=== PATIENT | female | born 1950 | race Caucasian/White ===

== ENCOUNTER 2016-06-26 10:00 | Inpatient (IN) | payer OTHER, MEDICARE ==
[2016-06-26] VITALS (40 sets, daily range): BP systolic 91–149; BP diastolic 46–103; PULSE 118–177; RESP 19–43; TEMP 97.8–98.6; O2SAT 80–98
[~2016-06-26] VITALS: Ht 157.5 cm; Wt 113.7 kg
[~2016-06-26 10:00] MED LIST: ASPI325T10 OR; ATRO17AE INH; DIGO0.25 PO; DILT31TA PO; GLUCTAB PO; LASI80TA PO; METO50TA PO; POTA-243 PO; PRED20 PO; TAB-TAB PO
[2016-06-26] MEDS ORDERED: DILTIAZEM INJ 125 MG in SODIUM CHLORIDE 0.9% INJ 100 ML IV SCH (10:15)
[2016-06-26] MEDS ORDERED: DILTIAZEM HCL 25 MG/5 ML VIAL IVP ONE (10:15)
[2016-06-26] MEDS ORDERED: SODIUM CHLORIDE 0.9% FLUSH 5 ML FLUSH IVF PRN (10:15)
[2016-06-26] MEDS ORDERED: FUROSEMIDE 40 MG/4 ML VIAL IVP ONE (10:15)
[2016-06-26] MEDS ORDERED: LEVOFLOXACIN 750 MG PREMIX INJ 150 ML IV ONE (10:15)
[2016-06-26] MEDS ORDERED: methylPREDNISolone SOD SUCC 125 MG/2 ML VIAL IVP ONE (10:15)
[2016-06-26] MEDS: RESP: ALBUTEROL 2.5 MG/IPRATROPIUM 0.5 MG NEB (SCH) INH (10:31)
[2016-06-26 10:34] LABS: AUTOMATED NEUTROPHIL # 21.2 TH/MM3 (1.8-7.7); BASOPHIL # 0.3 TH/MM3 (0-0.2); BASOPHIL % 1.2 % (0.0-2.0); EOSINOPHIL # 0.1 TH/MM3 (0-0.4); EOSINOPHIL % 0.2 % (0.0-4.0); HEMATOCRIT 39.9 % (35.0-46.0); LYMPHOCYTE # 1.8 TH/MM3 (1.0-4.8); MEAN CELL VOLUME 82.9 FL (80.0-100.0); MEAN CORPUSCULAR HEMOGLOBIN 26.9 PG (27.0-34.0); MEAN CORPUSCULAR HGB CONC 32.4 % (32.0-36.0); MONO % 6.7 % (0.0-8.0); NEUT % 84.9 % (16.0-70.0); PLATELET COUNT 294 TH/MM3 (150-450); RED BLOOD COUNT 4.81 MIL/MM3 (4.00-5.30); RED CELL DISTRIBUTION WIDTH 14.8 % (11.6-17.2); WHITE BLOOD COUNT 25.1 TH/MM3 (4.0-11.0)
[2016-06-26 10:38] LABS: CHLORIDE 103 MEQ/L (98-107); POTASSIUM 4.2 MEQ/L (3.5-5.1); SODIUM (NA) 143 MEQ/L (136-145)
[2016-06-26 10:41] LABS: ANION GAP 11 MEQ/L (5-15); BICARBONATE 29.1 MEQ/L (21.0-32.0); BLOOD UREA NITROGEN 37 MG/DL (7-18); MAGNESIUM 2.5 MG/DL (1.5-2.5)
[2016-06-26 10:42] LABS: HEMO FLAGS AUTO DIFF
[2016-06-26 10:44] LABS: ALT (GPT) 32 U/L (10-53); AST (GOT) 13 U/L (15-37)
[2016-06-26 10:45] LABS: GLOMERULAR FILTRATION RATE 38 ML/MIN (>89)
[2016-06-26] MEDS ORDERED: NICOTINE 21 MG/24 HR PATCH TD ONE (10:45)
[2016-06-26 10:46] LABS: TOTAL BILIRUBIN ADULT 0.5 MG/DL (0.2-1.0)
[2016-06-26 10:47] LABS: ALKALINE PHOSPHATASE 119 U/L (45-117)
--- NOTE | 2016-06-26 10:50 | PD ---
HPI Chief Complaint: shortness of breath Time Seen by Provider: 10:05 Travel History International Travel<30 days: No Contact w/Intl Traveler<30days: No History of Present Illness HPI This is a 66-year-old woman who presents to the emergency department in marked distress complaining of shortness of breath and chest pain. States she's been feeling sick for about 2 weeks now with worsening cough, productive of green phlegm, chills, trouble breathing, and chest tightness. She has a history of COPD, CHF, A. fib. She still smokes. She saw her primary physician a couple days ago he gave her prescriptions for a steroid taper, antibiotics, and a cough medicine. She is having worsening symptoms so she came to the emergency department. History Past Medical History Narrative Medical COPD CHF A. fib Tobacco use Social History Alcohol Use: Yes (1-2 TIMES PER WEEK) Tobacco Use: Yes (1 PPD) Allergies-Medications (Allergen,Severity, Reaction): Coded Allergies: Augmentin (Verified Allergy, Severe, Anaphylaxis, 06/26/16) Keflex (Verified Allergy, Severe, Anaphylaxis, 06/26/16) Sulfa (Verified Allergy, Severe, Anaphylaxis, 06/26/16) Reported Meds & Prescriptions Reported Meds & Active Scripts Active Reported Azithromycin 250 Mg Tab 250 Mg PO DAILY Breo Ellipta Inh (Fluticasone/Vilanterol) 100-25 Mcg/Act Inh 1 Puff INH DAILY Use daily at the same time. Benzonatate 200 Mg Cap 200 Mg PO BID PRN Aspirin 325 Mg Tab 325 Mg PO DAILY Diltiazem (Diltiazem HCl) 30 Mg Tab 30 Mg PO TID Lasix (Furosemide) 80 Mg Tab 80 Mg PO BID [areds ] 2 Tab PO DAILY Medrol Dosepak (Methylprednisolone) 4 Mg Dspk 4 Mg PO DIRECTED Per Pharmacist direction Metoprolol Tartrate 25 Mg Tab 25 Mg PO BID Potassium Chloride ER (Potassium Chloride) 20 Meq Tab 20 Meq PO BID Lisinopril 5 Mg Tab 5 Mg PO DAILY Review of Systems ROS Limitations: Clinical Condition Physical Exam Narrative GENERAL: Ill-appearing 66 year-old woman, morbidly obese, sitting forward, tachypnea, able to speak 2-3 words at a time. SKIN: Warm and dry. HEAD: Atraumatic. Normocephalic. EYES: Pupils equal and round. No scleral icterus. No injection or drainage. ENT: No nasal bleeding or discharge. Mucous membranes pink and moist. NECK: Trachea midline. No JVD. CARDIOVASCULAR: Heart rate initially rapid, 170s to 180s, irregular. No obvious murmurs. RESPIRATORY: Marked respiratory distress. Coarse wheezing throughout the posterior lung holl[place]. GASTROINTESTINAL: Abdomen is obese, soft, no CVA tenderness. MUSCULOSKELETAL: No obvious deformities. No obvious edema. NEUROLOGICAL: Awake and alert. No obvious cranial nerve deficits. Motor grossly within normal limits. Normal speech. PSYCHIATRIC: Anxious appearing. Data Data Last Documented VS Vital Signs Date Time Temp Pulse Resp B/P Pulse Ox O2 Delivery O2 Flow Rate FiO2 06/26/16 11:26 98.6 06/26/16 11:07 94 BiPAP 50 06/26/16 10:57 177 30 06/26/16 10:53 149/89 Orders Complete Blood Count With Diff (06/26/16 10:13) Comprehensive Metabolic Panel (06/26/16 10:13) B-Type Natriuretic Peptide (06/26/16 10:13) Magnesium (Mg) (06/26/16 10:13) Troponin I (06/26/16 10:13) Arterial Blood Gas (Abg) (06/26/16 10:13) Urinalysis - C+S If Indicated (06/26/16 10:13) Influenzae A/B Antigen (06/26/16 10:13) Blood Culture (06/26/16 10:13) Iv Access Insert/Monitor (06/26/16 10:13) Ecg Monitoring (06/26/16 10:13) Oximetry (06/26/16 10:13) Oxygen Administration (06/26/16 10:13) Chest, Single Ap (06/26/16 10:13) Sodium Chloride 0.9% Flush (Ns Flush) (06/26/16 10:15) Furosemide Inj (Lasix Inj) (06/26/16 10:15) Methylprednisolone So Succ Inj (Solumedr (06/26/16 10:15) Albuterol-Ipratropium Neb (Duoneb Neb) (06/26/16 10:15) Resp Bipap / Cpap Non Invas Vt (06/26/16 10:13) Vital Signs (Adult) Q15MX4,Q4H (06/26/16 10:13) ^ Financial Aid Manager / Telemetry (06/26/16 10:13) Cardiac Rhythm VERONICA.Q8H (06/26/16 10:13) ^ Notify Dr: Other (06/26/16 10:13) Diltiazem Inj (Cardizem Inj) (06/26/16 10:15) Diltiazem Inj (Cardizem Inj) (06/26/16 10:15) Levofloxacin 750 Mg Premix Inj (Levaquin (06/26/16 10:15) Lactic Acid (06/26/16 10:17) Nicotine 21 Mg Patch.24 Hr (Habitrol 21 (06/26/16 10:45) Admit Order (Ed Use Only) (06/26/16 ) Labs Laboratory Tests Test 06/26/16 06/26/16 06/26/16 10:00 10:05 11:05 White Blood Count 25.1 TH/MM3 Red Blood Count 4.81 MIL/MM3 Hemoglobin 12.9 GM/DL Hematocrit 39.9 % Mean Corpuscular Volume 82.9 FL Mean Corpuscular Hemoglobin 26.9 PG Mean Corpuscular Hemoglobin 32.4 % Concent Red Cell Distribution Width 14.8 % Platelet Count 294 TH/MM3 Mean Platelet Volume 9.3 FL Neutrophils (%) (Auto) 84.9 % Lymphocytes (%) (Auto) 7.0 % Monocytes (%) (Auto) 6.7 % Eosinophils (%) (Auto) 0.2 % Basophils (%) (Auto) 1.2 % Neutrophils # (Auto) 21.2 TH/MM3 Lymphocytes # (Auto) 1.8 TH/MM3 Monocytes # (Auto) 1.7 TH/MM3 Eosinophils # (Auto) 0.1 TH/MM3 Basophils # (Auto) 0.3 TH/MM3 CBC Comment AUTO DIFF Differential Total Cells 100 Counted Neutrophils % (Manual) 78 % Band Neutrophils % 6 % Lymphocytes % 9 % Monocytes % 3 % Neutrophils # (Manual) 22.1 TH/MM3 Metamyelocytes 4 % Differential Comment FINAL DIFF MANUAL Platelet Estimate NORMAL Platelet Morphology Comment NORMAL Sodium Level 143 MEQ/L Potassium Level 4.2 MEQ/L Chloride Level 103 MEQ/L Carbon Dioxide Level 29.1 MEQ/L Anion Gap 11 MEQ/L Blood Urea Nitrogen 37 MG/DL Creatinine 1.40 MG/DL Estimat Glomerular Filtration 38 ML/MIN Rate Random Glucose 179 MG/DL Calcium Level 9.2 MG/DL Magnesium Level 2.5 MG/DL Total Bilirubin 0.5 MG/DL Aspartate Amino Transf 13 U/L (AST/SGOT) Alanine Aminotransferase 32 U/L (ALT/SGPT) Alkaline Phosphatase 119 U/L Troponin I 0.02 NG/ML Total Protein 7.6 GM/DL Albumin 3.2 GM/DL Lactic Acid Level 2.1 mmol/L Blood Gas Puncture Site RT RADIAL Blood Gas Patient Temperature 98.6 Blood Gas HCO3 26 mmol/L Blood Gas Base Excess 1.8 mmol/L Blood Gas Oxygen Saturation 92 % Arterial Blood pH 7.43 Arterial Blood Partial 39 mmHG Pressure CO2 Arterial Blood Partial 84 mmHG Pressure O2 Arterial Blood Oxygen Content 16.1 Vol % Arterial Blood 3.2 % Carboxyhemoglobin Arterial Blood Methemoglobin 1.1 % Blood Gas Hemoglobin 12.3 G/DL Oxygen Delivery Device BIPAP Blood Gas Ventilator Setting IPAP 12/EPAP 5 Blood Gas Inspired Oxygen 50 % [facility] Medical Decision Making Medical Screen Exam Complete: Yes Emergency Medical Condition: Yes Interpretation(s) My review of EKG: A. fib with RVR, rate of 180, normal axis, normal intervals, nonspecific inferolateral T-wave inversions. LABS: CBC remarkable for white count 25,000, no left shift. CMP revealed mildly elevated BUN and creatinine. Lactate 2.1 Troponin negative BNP is pending ABGs unremarkable. Chest x-ray: Alveolar consolidation the left upper lung holl[place] with asymmetric pulmonary edema versus pneumonia. Differential Diagnosis A. fib RVR, pneumonia, sepsis, CHF, COPD exacerbation, other Narrative Course Medical decision making INITIAL: 66 year-old woman of multiple likely concomitant medical problems, including A. fib RVR with a heart rate in the 180s, marked respiratory distress likely CHF. Pneumonia or both. COPD exacerbation as well. Start with BiPAP for respiratory distress. We'll continue bronchodilators steroids. We'll treat empirically with antibiotics for pneumonia. Tilt drip for A. fib RVR. Patient will be admitted to the ICU. FINAL: A. fib RVR with hypoxia, concern for pneumonia and COPD. Looks well. Probably more pneumonia than CHF given her clinical history. A. fib RVR likely secondary. We'll treat for COPD exacerbation, pneumonia, A. fib RVR. Heart rate improving on diltiazem. Spoke with the electrician third, will admit the patient here. Diagnosis Primary Impression: Pneumonia Qualified Code: J18.1 - Pneumonia of left upper lobe due to infectious organism Additional Impressions: Respiratory failure Qualified Code: J96.01 - Acute respiratory failure with hypoxia Atrial fibrillation with RVR Admitting Information Admitting Physician Requests: Admit Derek Pritchard MD Jun 26, 2016 10:50
[2016-06-26 11:03] LABS: BANDS 6 % (0-6); METAMYELOCYTES 4 % (0-1); NEUTROPHIL # MANUAL DIFF 22.1 TH/MM3 (1.8-7.7); POLYS (SEG NEUTROPHILS) 78 % (16-70); WBC DIFF SAMPLE 100
[2016-06-26 11:04] LABS: PLATELET ESTIMATE SMEAR NORMAL (NORMAL); PLATELET MORPHOLOGY NORMAL (NORMAL); SCAN/DIFF FINAL DIFF MANUAL
[2016-06-26] MEDS ORDERED: MEDR4PAK PO (11:15)
[2016-06-26] MEDS ORDERED: BENZ1CAP34 PO (11:15)
[2016-06-26] MEDS ORDERED: FLUT1INH INH (11:15)
[2016-06-26] MEDS ORDERED: DILT30TA PO (11:15)
[2016-06-26] MEDS ORDERED: AZIT250T3 PO (11:15)
[2016-06-26] MEDS ORDERED: FURO1TAB61 PO (11:15)
[2016-06-26] MEDS ORDERED: ASPI325T PO (11:15)
[2016-06-26] MEDS ORDERED: areds PO (11:15)
[2016-06-26] MEDS ORDERED: LISI-519 PO (11:15)
[2016-06-26] MEDS ORDERED: POTA-163 PO (11:15)
[2016-06-26] MEDS ORDERED: METO25TA3 PO (11:15)
[2016-06-26 11:18] LABS: BLOOD GAS BASE EXCESS 1.8 mmol/L (-2-2); BLOOD GAS CARBOXYHEMOGLOBIN 3.2 % (0-4); BLOOD GAS HCO3 26 mmol/L (22-26); BLOOD GAS METHEMOGLOBIN 1.1 % (0-2); BLOOD GAS O2 HGB SATURATION 92 % (90-100); BLOOD GAS OXYGEN CONTENT 16.1 Vol % (12.0-20.0); BLOOD GAS PCO2 39 mmHG (38-42); BLOOD GAS PO2 84 mmHG (61-120); BLOOD GAS TOTAL HGB 12.3 G/DL (12.0-16.0); CRITICAL VALUE NO; DRAW SITE RT RADIAL; FIO2 50 %; NUMBER OF ARTERIAL PUNCTURES 1; OXYGEN DEVICE BIPAP; STAT YES; TEMP CORR TO 98.6; ULNAR PULSE PRESENT; VENT SETTINGS IPAP 12/EPAP 5
--- NOTE | 2016-06-26 11:33 | RADHPO ---
EXAM DATE/TIME: 06/26/2016 11:03 [facility] COMPARISON: CHEST SINGLE AP, June 17, 2013, 17:48. INDICATIONS: Short of breath. MEDICAL HISTORY: Chronic obstructive pulmonary disease. Congestive heart failure. AFib. Smoker SURGICAL HISTORY: None. ENCOUNTER: Initial ACUITY: 2 days PAIN SCORE: 0/10 LOCATION: Bilateral chest FINDINGS: There is new alveolar consolidation within the left upper lung field consistent with asymmetric pulmo nary edema versus pneumonia. Clinical correlation is recommended. The heart is enlarged. Pulmonary vascular congestion is stable. CONCLUSION: 1. New alveolar consolidation within the left upper lung field consistent with asymmetric pulmonary edema versus pneumonia. Clinical correlation is recommended. 2. Cardiomegaly. Amanuel Negron MD on June 26, 2016 at 11:23 Board Certified Radiologist. This report was verified electronically.
[2016-06-26] MEDS ORDERED: CHLORHEXIDINE GLUCONATE 2 % 1 PACK (2 CLOTHS) TOP PRN (13:00)
[2016-06-26] MEDS ORDERED: POTASSIUM CHLOR 40 MEQ PREMIX 100 ML IV PRN ×2 (13:00)
[2016-06-26] MEDS ORDERED: POTASSIUM CHLOR 20 MEQ PREMIX 100 ML IV PRN ×2 (13:00)
[2016-06-26] MEDS ORDERED: POTASSIUM PHOSPHATE MONOBASIC 500 MG TAB PO PRN (13:00)
[2016-06-26] MEDS ORDERED: ONDANSETRON HCL 4 MG/2 ML VIAL IV PRN (13:00)
[2016-06-26] MEDS ORDERED: MAGNESIUM SULFATE INJ 4 GM in SODIUM CHLORIDE 0.9% INJ 92 ML IV PRN (13:00)
[2016-06-26] MEDS ORDERED: Vancomycin Consult Pharmacy 1 EA XX SCH (13:00)
[2016-06-26] MEDS ORDERED: POTASSIUM CL 40 MEQ/30 ML LIQ UDC PO/TUBE PRN ×2 (13:00)
[2016-06-26] MEDS ORDERED: ACETAMINOPHEN 325 MG TAB PO PRN (13:00)
[2016-06-26] MEDS ORDERED: POTASSIUM PHOSPHATE MONOBASIC 500 MG TAB PO/TUBE PRN (13:00)
[2016-06-26] MEDS ORDERED: GLUCAGON 1 MG/ML VIAL OTHER PRN (13:00)
[2016-06-26] MEDS ORDERED: DEXTROSE 50% IN WATER 50 ML VIAL(D50) IV PUSH PRN (13:00)
[2016-06-26] MEDS ORDERED: MAGNESIUM SULFATE INJ 2 GM in SODIUM CHLORIDE 0.9% INJ 96 ML IV PRN (13:00)
[2016-06-26] MEDS ORDERED: POTASSIUM PHOSPHATE INJ 30 MMOL in SODIUM CHLOR 0.9% 250 ML INJ 250 ML IV PRN (13:00)
[2016-06-26] MEDS ORDERED: SODIUM PHOSPHATE INJ 30 MMOL in SODIUM CHLOR 0.9% 250 ML INJ 240 ML IV PRN (13:00)
[2016-06-26] MEDS ORDERED: MAGNESIUM OXIDE 400 MG TAB PO PRN (13:00)
[2016-06-26] MEDS ORDERED: RESP: ALBUTEROL 2.5 MG/IPRATROPIUM 0.5 MG NEB (PRN) INH (13:00)
[2016-06-26] MEDS ORDERED: BISACODYL 10 MG SUPP RECTAL PRN (13:00)
[2016-06-26] MEDS ORDERED: MISCELLANEOUS NURSING INFORMATION XX SCH (13:00)
[2016-06-26] MEDS ORDERED: METOPROLOL TARTRATE 5 MG/5 ML VIAL ONE (14:48)
[2016-06-26] MEDS ORDERED: METOPROLOL TARTRATE 5 MG/5 ML VIAL IV PUSH PRN (15:00)
[2016-06-26] MEDS: HEPARIN SODIUM - SQ 10,000 UNITS/ML VIAL SQ SCH (15:02)
[2016-06-26] MEDS: VANCOMYCIN 1,000 MG/NS 250 ML IV SCH ×4 (15:02→16:00)
[2016-06-26] MEDS ORDERED: FUROSEMIDE 40 MG/4 ML VIAL IV PUSH ONE (15:15)
--- NOTE | 2016-06-26 15:15 | HHI.HP ---
HPI Service Critical Care Medicine Primary Care Physician Non-Staff Admission Diagnosis pneumonia, A. fib RVR Diagnosis: Travel History International Travel<30 Days: No Contact w/Intl Traveler <30 Da: No Traveled to Known Affected Are: No History of Present Illness This is a 66-year-old woman super morbidly obese female that presented to the ED with dyspnea and angina. Per ED report, the patient been feeling ill for several weeks.Her symptomatology worsened which she described as worsening cough , productive of green phlegm, chills, trouble breathing, and chest tightness. She has a history of COPD, CHF, A. fib. . The patient is an active smoker. She still smokes. In the ED, imaging and laboratory studies were obtained. The patient was noted to be in A. fib RVR,HR 180's a Cardizem infusion was initiated , imaging studies revealed pulmonary edema versus pneumonia process, Lasix was given. The patient was placed on BiPAP, O2 sat ranging 92-95%. Critical care medicine is consulted for treatment and management. History (Limited) History Past Medical History Narrative Medical COPD CHF A. fib Tobacco use Social History Alcohol Use: Yes (1-2 TIMES PER WEEK) Tobacco Use: Yes (1 PPD) Allergies-Medications Allergies-Medications (Allergen,Severity, Reaction): Coded Allergies: Augmentin (Verified Allergy, Severe, Anaphylaxis, 06/26/16) Keflex (Verified Allergy, Severe, Anaphylaxis, 06/26/16) Sulfa (Verified Allergy, Severe, Anaphylaxis, 06/26/16) Reported Meds & Prescriptions Reported Meds & Active Scripts Active Reported Azithromycin 250 Mg Tab 250 Mg PO DAILY Breo Ellipta Inh (Fluticasone/Vilanterol) 100-25 Mcg/Act Inh 1 Puff INH DAILY Use daily at the same time. Benzonatate 200 Mg Cap 200 Mg PO BID PRN Aspirin 325 Mg Tab 325 Mg PO DAILY Diltiazem (Diltiazem HCl) 30 Mg Tab 30 Mg PO TID Lasix (Furosemide) 80 Mg Tab 80 Mg PO BID [areds ] 2 Tab PO DAILY Medrol Dosepak (Methylprednisolone) 4 Mg Dspk 4 Mg PO DIRECTED Per Pharmacist direction Metoprolol Tartrate 25 Mg Tab 25 Mg PO BID Potassium Chloride ER (Potassium Chloride) 20 Meq Tab 20 Meq PO BID Lisinopril 5 Mg Tab 5 Mg PO DAILY ROS Review of Systems ROS Limitations: Clinical Condition Physical Exam Vital Signs Vital Signs Date Time Temp Pulse Resp B/P Pulse Ox O2 Delivery O2 Flow Rate FiO2 06/26/16 14:15 96 50 06/26/16 12:27 123 26 115/76 98 BiPAP 50 06/26/16 12:13 148 06/26/16 11:26 98.6 06/26/16 11:07 94 BiPAP 50 06/26/16 11:07 96 BiPAP 50 06/26/16 10:57 177 30 94 BiPAP 06/26/16 10:53 177 30 149/89 80 06/26/16 10:20 95 50 Physical Exam GENERAL: Well-developed well-nourished morbidly obese female, semirecumbent in bed on BiPAP, in no apparent distress SKIN: Warm and dry. HEAD: Atraumatic. Normocephalic. EYES: PERRLA 3mm brisk. No scleral icterus. No injection or drainage. ENT: No nasal bleeding or discharge. Mucous membranes pink and moist. NECK: Trachea midline. Unable to assess JVD secondary to morbid obesity. CARDIOVASCULAR: Irregularly irregular rate/rhythm. RESPIRATORY: No accessory muscle use. Coarse breath sounds bilaterally to auscultation, throughout lung field. Breath sounds equal bilaterally. BiPAP 12/ 5 .50 GASTROINTESTINAL: Abdomen soft, obese non-tender, nondistended. No guarding. MUSCULOSKELETAL: Extremities without clubbing, cyanosis, or edema. No obvious deformities. NEUROLOGICAL: Awake and alert. RASS 0. No gross focal/sensory deficits. Follows commands in all 4 extremities. Laboratory Laboratory Tests Test 06/26/16 06/26/16 06/26/16 10:00 10:05 11:05 White Blood Count 25.1 Red Blood Count 4.81 Hemoglobin 12.9 Hematocrit 39.9 Mean Corpuscular Volume 82.9 Mean Corpuscular Hemoglobin 26.9 Mean Corpuscular Hemoglobin 32.4 Concent Red Cell Distribution Width 14.8 Platelet Count 294 Mean Platelet Volume 9.3 Neutrophils (%) (Auto) 84.9 Lymphocytes (%) (Auto) 7.0 Monocytes (%) (Auto) 6.7 Eosinophils (%) (Auto) 0.2 Basophils (%) (Auto) 1.2 Neutrophils # (Auto) 21.2 Lymphocytes # (Auto) 1.8 Monocytes # (Auto) 1.7 Eosinophils # (Auto) 0.1 Basophils # (Auto) 0.3 CBC Comment AUTO DIFF Differential Total Cells 100 Counted Neutrophils % (Manual) 78 Band Neutrophils % 6 Lymphocytes % 9 Monocytes % 3 Neutrophils # (Manual) 22.1 Metamyelocytes 4 Differential Comment FINAL DIFF MANUAL Platelet Estimate NORMAL Platelet Morphology Comment NORMAL Sodium Level 143 Potassium Level 4.2 Chloride Level 103 Carbon Dioxide Level 29.1 Anion Gap 11 Blood Urea Nitrogen 37 Creatinine 1.40 Estimat Glomerular Filtration 38 Rate Random Glucose 179 Calcium Level 9.2 Phosphorus Level 3.9 Magnesium Level 2.5 Total Bilirubin 0.5 Aspartate Amino Transf 13 (AST/SGOT) Alanine Aminotransferase 32 (ALT/SGPT) Alkaline Phosphatase 119 Troponin I 0.02 B-Type Natriuretic Peptide 440 Total Protein 7.6 Albumin 3.2 Lactic Acid Level 2.1 Blood Gas Puncture Site RT RADIAL Blood Gas Patient Temperature 98.6 Blood Gas HCO3 26 Blood Gas Base Excess 1.8 Blood Gas Oxygen Saturation 92 Arterial Blood pH 7.43 Arterial Blood Partial 39 Pressure CO2 Arterial Blood Partial 84 Pressure O2 Arterial Blood Oxygen Content 16.1 Arterial Blood 3.2 Carboxyhemoglobin Arterial Blood Methemoglobin 1.1 Blood Gas Hemoglobin 12.3 Oxygen Delivery Device BIPAP Blood Gas Ventilator Setting IPAP 12/EPAP 5 Blood Gas Inspired Oxygen 50 Date/Time Procedure Status Source Growth 06/26/16 10:18 Influenza Types A,B Antigen (TONY) - Final Complete Nasal Washing NEGATIVE FOR FLU A AND B ANTIGEN.... 06/26/16 10:10 Aerobic Blood Culture Received Blood Peripheral Pending 06/26/16 10:10 Anaerobic Blood Culture Received Blood Peripheral Pending Result Diagram: 06/26/16 1000 06/26/16 1000 Imaging Last Impressions Chest X-Ray 06/26/16 1013 Signed Impressions: Service Date/Time: June 11:03 - CONCLUSION: 1. New alveolar consolidation within the left upper lung field consistent with asymmetric pulmonary edema versus pneumonia. Clinical correlation is recommended. 2. Cardiomegaly. Amanuel Negron MD Septic Shock Reassessment Heart: Irregular Lungs: Course, Diminished Skin: Warm Peripheral Pulses: Bounding Right Radial Bounding Left Radial Bounding Right Dorsalis Pedis Bounding Left Dorsalis Pedis Capillary Refill: Brisk Assessment and Plan Assessment and Plan This is a 66-year-old super morbidly obese female with a recent history of pneumonia that presented to the ED COPD exacerbation , probable CHF,A. fib and RVR and hypoxic respiratory failure. The patient's echo from several years ago revealed an ejection fraction of 35-40%. Heart rate upon presentation to the ED was 180s. The patient currently is on a Cardizem drip for rate control, no effects from initial dose of Lasix ED the patient continues to have coarse breath sounds throughout lung [place] with O2 sat ranging 90-94%. The patient may require intubation and vasopressor support secondary to low ejection fraction and congestive heart failure. This patient is critically ill and currently prognosis is guarded. Plan by systems: Neurologic: -No acute issues -GCS 15 Respiratory: COPD exacerbation Multilobular CAP pneumonia Pulmonary edema Nicotine abuse -Maintain O2 sat greater than 92%. Patient currently on BiPAP 05/19.50. O2 sat 92-95% -Lasix 40 mg IV 1 dose given in the ED, questionable effect. Lasix 40 mg IV push now. -Patient's home med Lasix 80 mg twice a day continue -CXR 06/26-left upper lung hollings[place] consistent with asymmetric pulmonary edema versus pneumonia, cardiomegaly -Continue Breo (home med) daily -Nicotine patch high-dose daily -Increased frequency of DuoNeb to every 4 hours scheduled, every 2 hour when necessary -Repeat chest x-ray in a.m. -Patient counseled on cessation of smoking -Pulmicort consult appreciate recommendations -Initiate Solu-Medrol 40 every 12 hours Cardiovascular: Acute systolic Congestive heart failure Cardiomegaly -EK ED -A. fib RVR, HR 180's -Currently on Cardizem infusion per ED, will discontinue secondary to last known EF in 2013 -Give amiodarone bolus, begin an infusion in the setting of ejection fraction 06/20/13 per ECHO EF 3540 percent -Metoprolol 2.5 mg IV every 6hr for heart rate greater than 100 -Continue home meds metoprolol 25 mg twice a day -Continue lisinopril 5 mg/day -Continue ASA 325 mg daily -Cardiology consult-appreciate recommendations -Obtain echo-06/20/13 EF 3540 % -Obtain BNP, serial troponins Renal: Renal insufficiency -Creatinine 1.4-consider ARB, consider ACEI -- Strict I/Os -monitor and document urinary output FEN/GI: -Continue home med Lasix 80 mg twice a day -Continue potassium by mouth 20 meq daily Heme/ID: Sepsis Leukocytosis Community-acquired pneumonia Bandemia -Monitor CBC. WBC 25, bands 6 -Begin empiric antibiotics- Levofloxacin, and Vancomycin Endocrine: -No acute issues -Glucose monitoring per ICU protocol every 6 hours with low-dose coverage -- SSI Prophylaxis: GI Prophylaxis Protonix IV DVT Prophylaxis -- SCDs Heparin subcutaneous twice a day Lines: Peripheral IV's. Central line if indicated Dispo: This patient remains critically ill with one or more organ systems which are or may become a threat to life. I have spent in excess of 60 minutes discontinuously in the care and management of this patient. This time is exclusive of procedures, and includes, but is not limited to, evaluation of the patient, review of the medical record, discussions with family, consultants, nursing staff, or respiratory therapy, and documentation in the medical record. Code Status Full code Discussed Condition With PERINATAL COORDINATOR at bedside Flores Hahn MD Jun 26, 2016 15:15
[2016-06-26] MEDS ORDERED: AMIODARONE INJ 150 MG in DEXTROSE 5% IN WATER 100ML INJ 97 ML IV ONE ×4 (16:00)
[2016-06-26] MEDS ORDERED: RESP: ALBUTEROL 2.5 MG/IPRATROPIUM 0.5 MG NEB (SCH) INH ×2 (16:00→20:00)
[2016-06-26] MEDS: AMIODARONE INJ 450 MG in DEXTROSE 5% IN WATE(EXCEL) INJ 241 ML IV SCH ×2 (17:02)
[2016-06-26] MEDS: INSULIN ASPART SUPPLEMENTAL SCALE SQ SCH ×2 (17:12→20:25)
[2016-06-26] MEDS: FUROSEMIDE 40 MG TAB PO SCH (17:59)
[2016-06-26] MEDS ORDERED: VANCOMYCIN INJ 700 MG in SODIUM CHLOR 0.9% 250 ML INJ 250 ML IV ONE (18:00)
[2016-06-26] MEDS ORDERED: DIGOXIN 0.5 MG/2 ML VIAL IV PUSH ONE ×2 (18:15→21:15)
[2016-06-26] MEDS: POTASSIUM CHLORIDE 20 MEQ CONTROLLED RELEASE TAB PO SCH (20:22)
[2016-06-26] MEDS: DOCUSATE SODIUM 100 MG CAP PO SCH (20:22)
[2016-06-26] MEDS: METOPROLOL TARTRATE 25 MG TAB PO SCH (20:22)
[2016-06-26] MEDS: methylPREDNISolone SOD SUCC 40 MG/1 ML VIAL IV PUSH SCH (20:23)
[2016-06-26] MEDS: SODIUM CHLORIDE 0.9% FLUSH 5 ML FLUSH IV FLUSH SCH (20:25)
[2016-06-26 21:20] LABS: BLOOD, URINE NEG (NEG); GLUCOSE,URINE NEG (NEG); KETONE, URINE NEG (NEG); NITRITE,URINE NEG (NEG); PH, URINE 5.5 (5.0-8.5)
[2016-06-26 21:24] LABS: URINE COLOR YELLOW (YELLW/STRAW)
[2016-06-26 21:25] LABS: COMMENT (UR) CULT NOT INDICATED; CULTURE IF INDICATED CULT NOT INDICATED; SQUAMOUS EPITHELIAL CELL URINE 0-5 /hpf (0-5); WBC, URINE 0-2 /hpf (0-5)
[2016-06-26 22:08] LABS: POTASSIUM 4.2 MEQ/L (3.5-5.1)
[2016-06-26 22:14] LABS: BICARBONATE 25.7 MEQ/L (21.0-32.0); MAGNESIUM 2.6 MG/DL (1.5-2.5)
[2016-06-26] MEDS: LORazepam 2 MG/ML VIAL IV PRN (23:39)
[2016-06-27] VITALS (47 sets, daily range): BP systolic 93–155; BP diastolic 54–106; PULSE 78–148; RESP 22–48; TEMP 97.5–98.4; O2SAT 81–98
[2016-06-27] MEDS: AMIODARONE INJ 450 MG in DEXTROSE 5% IN WATE(EXCEL) INJ 241 ML IV SCH ×2 (00:05)
[2016-06-27] MEDS: HEPARIN SODIUM - SQ 10,000 UNITS/ML VIAL SQ SCH (00:42)
[2016-06-27] MEDS: RESP: IPRATROPIUM 0.5 MG/2.5 ML NEB NEB PRN ×4 (01:34→20:40)
[2016-06-27] MEDS: DIGOXIN 0.5 MG/2 ML VIAL IV PUSH SCH ×2 (03:06→05:20)
[2016-06-27] MEDS: CHLORHEXIDINE GLUCONATE 2 % 1 PACK (2 CLOTHS) TOP SCH (03:16)
[2016-06-27 04:41] LABS: AUTOMATED NEUTROPHIL # 18.7 TH/MM3 (1.8-7.7); BASOPHIL % 0.2 % (0.0-2.0); HEMATOCRIT 39.8 % (35.0-46.0); LYMPH % 5.2 % (9.0-44.0); LYMPHOCYTE # 1.1 TH/MM3 (1.0-4.8); MEAN CELL VOLUME 81.5 FL (80.0-100.0); MEAN CORPUSCULAR HEMOGLOBIN 26.4 PG (27.0-34.0); MEAN CORPUSCULAR HGB CONC 32.4 % (32.0-36.0); MONO % 2.4 % (0.0-8.0); NEUT % 92.2 % (16.0-70.0); PLATELET COUNT 293 TH/MM3 (150-450); RED BLOOD COUNT 4.88 MIL/MM3 (4.00-5.30); RED CELL DISTRIBUTION WIDTH 14.3 % (11.6-17.2); WHITE BLOOD COUNT 20.3 TH/MM3 (4.0-11.0)
[2016-06-27 04:47] LABS: HEMO FLAGS DIFF FINAL
[2016-06-27 04:48] LABS: POTASSIUM 4.6 MEQ/L (3.5-5.1)
[2016-06-27 04:53] LABS: BICARBONATE 28.6 MEQ/L (21.0-32.0); MAGNESIUM 2.8 MG/DL (1.5-2.5)
[2016-06-27] MEDS: INSULIN ASPART SUPPLEMENTAL SCALE SQ SCH (05:19)
--- NOTE | 2016-06-27 06:31 | RADHPO ---
EXAM DATE/TIME: 06/27/2016 06:11 [facility] COMPARISON: CHEST SINGLE AP, June 26, 2016, 11:03. INDICATIONS : Shortness of breath. MEDICAL HISTORY : Chronic obstructive pulmonary disease. Congestive heart failure. A-Fib, Smoker SURGICAL HISTORY : None. ENCOUNTER: Subsequent ACUITY: 2 days PAIN SCORE: 0/10 LOCATION: Bilateral chest FINDINGS: The cardiac silhouette is enlarged in transverse diameter. There are findings of congestive heart ian lure with interstitial and alveolar opacity bilaterally. The findings are similar to the prior exam. No pleural effusions are identified. CONCLUSION: 1. Cardiomegaly and findings of congestive heart failure. There has been no significant change when c ompared to the prior exam. Davon Cuba MD on June 27, 2016 at 6:29 Board Certified Radiologist. This report was verified electronically.
[2016-06-27] MEDS ORDERED: DILTIAZEM HCL 25 MG/5 ML VIAL ONE (06:39)
[2016-06-27] MEDS ORDERED: DILTIAZEM HCL 25 MG/5 ML VIAL IV PUSH ONE (06:45)
[2016-06-27] MEDS ORDERED: DILTIAZEM 125 MG/NS 100 ML IV SCH ×2 (07:00)
[2016-06-27] MEDS ORDERED: DILTIAZEM HCL 25 MG/5 ML VIAL IV ONE (07:05)
--- NOTE | 2016-06-27 07:12 | MB ---
cc: AMIRAH WEAVER DATE OF CONSULTATION 06/26/2016 REASON FOR CONSULTATION Respiratory failure and COPD. PRESENT ILLNESS This is a 66-hour-old extremely overweight white female who has had a history of chronic dyspnea and a history for CHF. She was admitted with cough, yellow sputum, weakness and palpitations. The patient was in atrial fibrillation with a rapid ventricular response. She was placed on oxygen via Ventimask, but failed to improve and was placed on a BiPap mask and his sats have improved to 96%. She denied any fevers, chills, night sweats, but had some leg swelling. PAST HISTORY The patient's past history has included: 1. History of atrial fibrillation. 2. CHF 3. Chronic bronchitis PAST SURGICAL HISTORY She denies significant surgery. ALLERGIES AUGMENTIN AND SULFA FAMILY HISTORY Noncontributory MED LIST 1. Cardizem 30 mg t.i.d. 2. Metoprolol 25 mg b.i.d. 3. Potassium 20 mEq b.i.d. 4. Lasix 80 mg b.i.d. 5. Lisinopril 5 mg a day 6. Breo 100 mcg one puff daily FAMILY HISTORY Noncontributory SYSTEM REVIEW The patient is overweight. She has a cough, postnasal drip, apnea, history of reflux and abdominal pains. Denies any urinary symptoms, flank pains. No leg or calf muscle pains. She does have some joint pains of her extremities. PHYSICAL EXAMINATION This is an extremely overweight elderly white female who is in no acute distress. VITAL SIGNS: Blood pressure 120/70, pulse 124, respirations 20, temperature 98.5. HEENT: Head normocephalic. Pupils are reactive. Tongue moist. Nasal mucosa injected. Throat clear. NECK: Supple. No lymphadenopathy. No bruits or thyroid enlargement. CHEST: Increased AP diameter with expiratory wheezes throughout both lung holl[place]. Prolonged expirations. HEART: The heart sounds are irregular, S1-S2 with no murmur. No S3 gallop. ABDOMEN: Soft and protuberant. No masses or organomegaly, tenderness. Bowel sounds active. EXTREMITIES: No edema. Mild varicosities. Reflexes 1+ with no gross motor deficits. NEUROLOGIC: Cranial nerves grossly intact. RECTAL: Exam is deferred. SKIN: No lesions. IMPRESSION 1. Hypercapnic respiratory failure 2. Bilateral pneumonia 3. Pulmonary edema 4. CHF and atrial fibrillation 5. Obstructive sleep apnea 6. Hypertension PLAN The patient has been placed on O2 via Ventimask at 50%. She will be placed back on BiPap at night 12/5 and 40% and sister nasal cannula in the morning. Continue with diuretics including Lasix 80 mg b.i.d. Blood gases to be done. She will be placed on DuoNeb solution q.i.d. and Breo 100/25 mcg one puff daily, Solu-Medrol 40 mg every six hours and the nebulizer treatments will be suspended if her heart rate is over 120. We will get a sputum culture, get a PFT when she is clinically stable. Thank you Dr. Hahn for this consultation. MD RAMIRO Bernard/YVETTE /11:10 PM /7:02 AM
[2016-06-27] MEDS: ENOXAPARIN SODIUM 80 MG/0.8 ML SYRINGE SQ SCH ×2 (07:19→17:45)
--- NOTE | 2016-06-27 07:38 | MB ---
cc: BAO HUSSEIN M.D. DATE OF CONSULTATION: 06/27/2016 REASON FOR CONSULTATION The patient is a pleasant 66-year-old white female I am seeing for congestive heart failure and atrial fibrillation. I have reviewed old records. HISTORY OF PRESENT ILLNESS The patient has a history of chronic and atrial fibrillation but is not anticoagulated. Ejection fraction in 2013 was 35-40% but she has not followed up with cardiology. The patient smokes one pack per day and has COPD. She has moderate stable dyspnea on exertion which has worsened over the last 1-2 months. Within the last week or two she has had increasing cough, sputum production and some fever. She noted no pedal edema, chest pain, syncope or palpitations. She has no history of CVA, claudication, DVT or pulmonary emboli. PAST MEDICAL HISTORY 1. Hypertension. 2. Possible hyperlipidemia. 3. Atrial fibrillation--chronic. 4. Morbid obesity. 5. Chronic back pain. SOCIAL HISTORY The patient is and smokes a pack per day and occasionally drinks. FAMILY HISTORY Noncontributory. MEDICATIONS Medication list reviewed. ALLERGIES 1. AUGMENTIN. 2. CEPHALOSPORINS. 3. KEFLEX. 4. SULFA. REVIEW OF SYSTEMS The review of systems is remarkable for the above along with her chronic back pain. PHYSICAL EXAMINATION GENERAL: On exam she is morbidly obese and in mild to moderate respiratory distress. VITAL SIGNS: She is mildly tachycardic. HEENT: There are no xanthelasma and oropharyngeal mucosa normal. CHEST: Without deformity and with moderate solis-expiratory wheezes and decreased breath sounds. CARDIAC: JVD normal. PMI is not felt. S1, S2. No murmurs or gallops. Irregular rhythm. ABDOMEN: Obese but benign. EXTREMITIES: No cyanosis, clubbing or edema. PULSES: Carotids without bruits. Radials 1+. Femorals not felt. Pedals 1+. NEUROLOGIC: She is not ambulated. EKG EKG showed atrial fibrillation with rapid response. IMAGING Chest x-ray 06/26/2016 was read as a left upper lobe pneumonia but on 06/27/2016 read as congestive heart failure. LABORATORY CBC with elevated white count but normal hemoglobin, hematocrit and platelet count. Urinalysis negative. Potassium today 4.6, creatinine 1.5 which is elevated from her baseline, magnesium normal. Liver functions normal. BNP mildly elevated at 574. Troponins negative. PROBLEMS 1. Respiratory distress--the patient may have pneumonia along with exacerbation of COPD and obesity. She also may have some mild congestive heart failure but the BNP elevation is somewhat nonspecific 2. Chronic atrial fibrillation. 3. History of some type of cardiomyopathy--not followed. 4. Hypertension. 5. Possible hyperlipidemia 6. Tobacco abuse disorder. 7. Noncompliance. RECOMMENDATIONS 1. Given her chronic atrial fibrillation I see no indication for amiodarone, particularly with her lung disease. I will switch this to intravenous Cardizem for rate control. She has received digoxin but I would not use this as a baseline. 2. Continue low-dose beta blockers from home. 3. Discontinue aspirin and start her on Lovenox for full anticoagulation. 4. Echocardiogram and TSH and lipid panel are pending. 5. Tobacco abstinence with weight loss and low salt/cholesterol diet. I have emphasized the importance of risk factor modification. All questions were answered. Bao Hussein MD ASG/BT /6:58 AM /7:26 AM
[2016-06-27] MEDS: METOPROLOL TARTRATE 25 MG TAB PO SCH ×2 (08:59→19:28)
[2016-06-27] MEDS: POTASSIUM CHLORIDE 20 MEQ CONTROLLED RELEASE TAB PO SCH ×2 (08:59→19:29)
[2016-06-27] MEDS: FUROSEMIDE 40 MG TAB PO SCH (08:59)
[2016-06-27] MEDS: DOCUSATE SODIUM 100 MG CAP PO SCH ×2 (08:59→19:27)
[2016-06-27] MEDS: LISINOPRIL 5 MG TAB PO SCH (08:59)
[2016-06-27] MEDS: methylPREDNISolone SOD SUCC 40 MG/1 ML VIAL IV PUSH SCH ×2 (09:00→19:27)
[2016-06-27] MEDS: FLUTICASONE 100 MCG/VILANTEROL 25 MCG INHALER INH SCH (09:00)
[2016-06-27] MEDS ORDERED: PANTOPRAZOLE SODIUM 40 MG VIAL IV SCH (09:00)
[2016-06-27] MEDS ORDERED: ASPIRIN 325 MG TAB PO SCH (09:00)
[2016-06-27 09:02] LABS: APTT (PATIENT) 28.7 SEC (24.3-30.1); PROTHROMBIN TIME - PATIENT 11.4 SEC (9.8-11.6)
[2016-06-27] MEDS: SODIUM CHLORIDE 0.9% FLUSH 5 ML FLUSH IV FLUSH SCH ×2 (09:04→19:26)
[2016-06-27] MEDS ORDERED: LEVOFLOXACIN 750 MG PREMIX INJ 150 ML IV SCH (10:00)
--- NOTE | 2016-06-27 10:30 | RADHPO ---
EXAM DATE/TIME: 06/27/2016 09:52 [facility] COMPARISON: CHEST SINGLE AP, June 27, 2016, 6:11. INDICATIONS : Short of breath. Infiltrate. RADIATION DOSE: 30.96 CTDIvol (mGy) MEDICAL HISTORY : Chronic obstructive pulmonary disease. Congestive heart failure. SURGICAL HISTORY : Tubal ligation. ENCOUNTER: Initial ACUITY: 4 - 6 days PAIN SCALE: 2/10 LOCATION: Bilateral chest TECHNIQUE: Volumetric scanning of the chest was performed. Using automated exposure control and adjustment of t he mA and/or kV according to patient size, radiation dose was kept as low as reasonably achievable to obtain optimal diagnostic quality images. FINDINGS: LUNGS: There are multiple areas of confluent airspace consolidation and areas of groundglass opacities seen throughout the lungs bilaterally, left greater than right. Given this distribution this is most consi stent with an infectious process. PLEURAE: There is no pleural thickening or pleural effusion. MEDIASTINUM: The heart size is greatly enlarged. No evidence of pericardial effusion.. AXILLAE: Within normal limits. No lymphadenopathy. MUSCULOSKELETAL: Within normal limits for patient age. MISCELLANEOUS: The visualized upper abdominal organs demonstrate no acute abnormality. CONCLUSION: Multifocal airspace consolidation and areas of patchy groundglass opacity most consistent with an inf ectious process. Significant cardiomegaly. Given the distribution of the air space opacities this is not felt to represent congestive heart failure.. Gail Mcleod MD on June 27, 2016 at 10:26 Board Certified Radiologist. This report was verified electronically.
[2016-06-27] MEDS ORDERED: DEXTROSE 50% IN WATER 50 ML VIAL(D50) IV PUSH PRN (10:45)
--- NOTE | 2016-06-27 10:52 | HHI.CCPN ---
Subjective Remarks/Hospital Course Hospital Course: This is a 66-year-old woman super morbidly obese female that presented to the ED with dyspnea and angina. Per ED report, the patient been feeling ill for several weeks.Her symptomatology worsened which she described as worsening cough , productive of green phlegm, chills, trouble breathing, and chest tightness. She has a history of COPD, CHF, A. fib. . The patient is an active smoker. She still smokes. In the ED, imaging and laboratory studies were obtained. The patient was noted to be in A. fib RVR,HR 180's a Cardizem infusion was initiated , imaging studies revealed pulmonary edema versus pneumonia process, Lasix was given. The patient was placed on BiPAP, O2 sat ranging 92-95%. Critical care medicine is consulted for treatment and management. Subjective: 06/27: cardiology and pulm evaluated patient. per their recommendations, amiodarone discontinued and dilt drip instituted. echo evaluation of probable chf exacerbation still pending. Objective Vital Signs Date Time Temp Pulse Resp B/P Pulse Ox O2 Delivery O2 Flow Rate FiO2 06/27/16 09:00 106 30 138/106 96 06/27/16 08:07 Non-Rebreather 15.00 100 06/27/16 08:00 97.9 Intake and Output 06/26/16 06/26/16 06/27/16 08:00 16:00 00:00 Intake Total 150 ml 833 ml Output Total 1550 ml Balance 150 ml -717 ml Result Diagram: 06/27/16 0429 06/27/16 0429 Other Results Microbiology Date/Time Procedure Status Source Growth 06/26/16 10:18 Influenza Types A,B Antigen (TONY) - Final Complete Nasal Washing NEGATIVE FOR FLU A AND B ANTIGEN.... Laboratory Tests Test 06/26/16 11:05 Blood Gas Puncture Site RT RADIAL Blood Gas Patient Temperature 98.6 Blood Gas HCO3 26 mmol/L (22-26) Blood Gas Base Excess 1.8 mmol/L (-2-2) Blood Gas Oxygen Saturation 92 % (90-100) Arterial Blood pH 7.43 (7.380-7.420) Arterial Blood Partial 39 mmHG (38-42) Pressure CO2 Arterial Blood Partial 84 mmHG Pressure O2 (61-120) Arterial Blood Oxygen Content 16.1 Vol % (12.0-20.0) Arterial Blood 3.2 % (0-4) Carboxyhemoglobin Arterial Blood Methemoglobin 1.1 % (0-2) Blood Gas Hemoglobin 12.3 G/DL (12.0-16.0) Oxygen Delivery Device BIPAP Blood Gas Ventilator Setting IPAP 12/EPAP 5 Blood Gas Inspired Oxygen 50 % Imaging Last Impressions Chest X-Ray 06/26/16 1013 Signed Impressions: Service Date/Time: June 11:03 - CONCLUSION: 1. New alveolar consolidation within the left upper lung field consistent with asymmetric pulmonary edema versus pneumonia. Clinical correlation is recommended. 2. Cardiomegaly. Amanuel Negron MD Objective Remarks GENERAL: morbidly obese female, semirecumbent in bed on high flow face mask HEAD: Atraumatic. Normocephalic. EYES: PERRLA. No scleral icterus. No injection or drainage. ENT: No nasal bleeding or discharge. Mucous membranes pink and moist. NECK: Trachea midline. Unable to assess JVD secondary to morbid obesity. CARDIOVASCULAR: Irregularly irregular rate/rhythm. RESPIRATORY: No accessory muscle use. Coarse breath sounds bilaterally to auscultation, throughout lung field. Breath sounds equal bilaterally. BiPAP 12/ 5 .50 GASTROINTESTINAL: Abdomen soft, obese non-tender, nondistended. No guarding. MUSCULOSKELETAL: Extremities without clubbing, cyanosis, or edema. No obvious deformities. NEUROLOGICAL: Awake and alert. RASS 0. No gross focal/sensory deficits. Follows commands in all 4 extremities. A/P Assessment and Plan This is a 66-year-old super morbidly obese female with a recent history of pneumonia that presented to the ED COPD exacerbation , probable CHF,A. fib and RVR and hypoxic respiratory failure. The patient's echo from several years ago revealed an ejection fraction of 35-40%. Heart rate upon presentation to the ED was 180s. The patient currently is on a Cardizem drip for rate control, no effects from initial dose of Lasix ED the patient continues to have coarse breath sounds throughout lung [place] with O2 sat ranging 90-94%. will continue to aggressively diurese the patient. Plan by systems: Neurologic: -No acute issues -GCS 15 Respiratory: COPD exacerbation Multilobular CAP pneumonia Pulmonary edema Nicotine abuse -Maintain O2 sat greater than 92%. ok to have periods off BiPAP. -Patient's home med Lasix 80 mg twice a day, will swap to Lasix 80 iv q8h. -CXR 06/26-left upper lung [place] consistent with asymmetric pulmonary edema versus pneumonia, cardiomegaly -Continue Breo (home med) daily -Nicotine patch high-dose daily - DuoNeb to every 4 hours scheduled, every 2 hour when necessary -Patient counseled on cessation of smoking -Pulmicort consult appreciate recommendations -Initiate Solu-Medrol 40 every 12 hours -Pulm consult, following along. recommended CT chest, will f/u results. Cardiovascular: Acute systolic Congestive heart failure Cardiomegaly Atrial Fibrillation with rapid ventricular response -EKG1/ ED -A. fib RVR, HR 180's -Currently on Cardizem infusion per cardiology -will add diltiazem 60 po q6hr scheduled. wean drip as tolerated. -Metoprolol 2.5 mg IV every 6hr for heart rate greater than 100 -Continue home meds metoprolol 25 mg twice a day -Continue lisinopril 5 mg/day -Continue ASA 325 mg daily -Cardiology consult- Dr. Hussein following -awaiting echo findings-06/20/13 EF 3540 % -trop negative. BNP 500s. Renal: Renal insufficiency -Creatinine 1.4-consider ARB, consider ACEI -- Strict I/Os -monitor and document urinary output FEN/GI: Morbid Obesity -hold home lasix 80 po bid, start lasix 80mg iv q8hr. -mg sulfate 2gm iv x 1 now. -Continue potassium by mouth 20 meq daily - will obtain nursing bedside swallow assessment. if she passes, will advance to clear liquid, then to carb controlled, heart healthy diet as tolerated. - 500mL fluid restriction. - goal 2L negative by AM. Heme/ID: Sepsis Leukocytosis Community-acquired pneumonia Bandemia -Monitor CBC. WBC 25, bands 6 -continue empiric antibiotics- Levofloxacin, and Vancomycin -obtain sputum culture -06/26 blood cultures NGTD. Endocrine: Hyperglycemia -No acute issues -increase SSI to high scale, q4h. poorly controlled blood glucose. -- SSI Prophylaxis: GI Prophylaxis Protonix IV DVT Prophylaxis -- SCDs Therapeutic lovenox 80 q12h, new-onset Afib with CHADS-VaSC > 2 (CHF) Lines: Peripheral IV's. Central line if indicated Dispo: remain in ICU. Sanket Castro MD Jun 27, 2016 10:52 patient, review of the medical record, discussions with family, consultants, nursing staff, or respiratory therapy, and documentation in the medical record. Sanket Castro MD Jun 27, 2016 10:52
[2016-06-27] MEDS: NICOTINE 21 MG/24 HR PATCH TD SCH (10:53)
[2016-06-27] MEDS: INSULIN NovoLIN REGULAR SUPPLEMENTAL SCALE SQ SCH ×3 (11:09→19:35)
[2016-06-27] MEDS: DILTIAZEM HCL 60 MG TAB PO SCH ×2 (12:08→17:45)
[2016-06-27] MEDS: VANCOMYCIN INJ 1,700 MG in SODIUM CHLORID 0.9% 500 ML INJ 500 ML IV SCH (14:10)
[2016-06-27] MEDS ORDERED: FUROSEMIDE 100 MG/10 ML VIAL IV PUSH ONE (17:30)
[2016-06-27] MEDS: MAGNESIUM SULFATE 1 GM PREMIX 100 ML IV SCH ×2 (17:44→19:25)
--- NOTE | 2016-06-27 19:46 | HHI.PR ---
Subjective Remarks Used Bipap last night. Now on a Aerosol mask . Feels better. Good output Objective Vital Signs Date Time Temp Pulse Resp B/P Pulse Ox O2 Delivery O2 Flow Rate FiO2 06/27/16 18:00 86 25 117/89 93 06/27/16 18:00 86 06/27/16 17:00 90 28 119/60 95 06/27/16 16:15 93 Aerosol Mask 70 06/27/16 16:00 98.1 82 48 117/64 94 06/27/16 16:00 82 06/27/16 15:00 80 06/27/16 15:00 80 34 127/87 97 06/27/16 14:00 84 06/27/16 14:00 84 39 120/87 95 06/27/16 13:00 84 22 127/54 98 06/27/16 12:00 88 06/27/16 12:00 97.6 88 29 132/60 95 06/27/16 11:00 98 37 136/60 90 06/27/16 10:00 106 06/27/16 10:00 92 37 137/88 93 06/27/16 09:00 106 30 138/106 96 06/27/16 08:07 92 Non-Rebreather 15.00 100 06/27/16 08:06 85 Aerosol Mask 60 06/27/16 08:05 93 Non-Rebreather 100 06/27/16 08:05 82 Nasal Cannula 6.00 06/27/16 08:00 100 06/27/16 08:00 97.9 106 32 118/104 93 06/27/16 07:47 88 Nasal Cannula 6.00 06/27/16 07:40 92 Nasal Cannula 6.00 06/27/16 07:00 91 Simple Mask 80 Humidified 06/27/16 07:00 118 33 107/75 90 06/27/16 07:00 118 06/27/16 06:08 128 34 107/75 88 06/27/16 06:00 123 06/27/16 05:31 132 33 135/75 85 06/27/16 05:16 142 37 144/90 88 06/27/16 05:01 138 33 141/88 87 06/27/16 04:50 142 42 118/76 86 06/27/16 04:29 140 38 121/88 86 06/27/16 04:16 140 37 139/78 88 1/13/17 04:00 98.3 138 33 139/78 88 06/27/16 04:00 132 06/27/16 04:00 88 Simple Mask 80 Humidified 06/27/16 03:44 142 34 148/88 81 06/27/16 03:29 148 43 112/72 90 06/27/16 03:14 136 32 127/89 89 06/27/16 02:59 144 30 155/96 90 06/27/16 02:44 148 38 137/79 84 06/27/16 02:14 134 36 113/86 87 06/27/16 02:00 140 06/27/16 01:59 132 35 93/73 88 06/27/16 01:29 136 39 122/81 89 06/27/16 01:14 132 39 134/85 89 06/27/16 00:59 140 36 132/85 88 06/27/16 00:44 136 45 120/90 87 06/27/16 00:29 128 31 129/105 86 06/27/16 00:14 98.4 130 28 147/86 86 06/27/16 00:00 135 06/26/16 23:59 130 33 138/103 86 06/26/16 23:44 130 30 130/74 87 06/26/16 23:29 132 42 132/76 93 06/26/16 23:14 126 35 137/78 92 06/26/16 23:00 130 38 86 06/26/16 22:59 124 29 133/88 92 06/26/16 22:44 120 27 127/90 91 06/26/16 22:40 93 Aerosol Mask 50 06/26/16 22:29 120 35 147/66 90 06/26/16 22:14 118 28 124/68 92 06/26/16 22:00 124 06/26/16 21:44 118 33 119/86 92 06/26/16 21:29 122 33 133/88 90 06/26/16 21:14 124 35 127/79 91 06/26/16 20:59 130 33 102/69 88 06/26/16 20:45 86 Simple Mask 60 06/26/16 20:44 130 19 119/80 94 06/26/16 20:38 94 Nasal Cannula 6.00 06/26/16 20:29 134 34 91/74 90 06/26/16 20:14 136 30 102/68 89 06/26/16 20:00 140 06/26/16 20:00 91 Nasal Cannula 6.00 06/26/16 19:59 98.3 138 34 100/82 88 06/26/16 19:56 140 40 114/74 87 I/O 06/26/16 06/26/16 06/26/16 06/27/16 06/27/16 06/27/16 07:00 15:00 23:00 07:00 15:00 23:00 Intake Total 150 ml 833 ml 118 ml 1040 ml 561 ml Output Total 1550 ml 575 ml 1125 ml Balance 150 ml -717 ml -457 ml -85 ml 561 ml Intake Oral 120 ml 0 ml 720 ml IV Total 150 ml 713 ml 118 ml 320 ml 561 ml Output Urine Total 1550 ml 575 ml 1125 ml Stool Total 0 ml # Voids 2 # Bowel Movements 1 0 0 Result Diagram: 06/27/1642806/27/16428 Objective Remarks This is an extremely overweight elderly white female who is in no acute distress. HEENT: Head normocephalic. Pupils are reactive. Tongue moist. Nasal mucosa injected. Throat clear. NECK: Supple. No lymphadenopathy. No bruits or thyroid enlargement. CHEST: Increased AP diameter with expiratory wheezes throughout both lung [place]. Prolonged expirations.Occ crackles at bases HEART: The heart sounds are irregular, S1-S2 with no murmur. No S3 gallop. ABDOMEN: Soft and protuberant. No masses or organomegaly, tenderness. Bowel sounds active. EXTREMITIES: 1 + edema. Mild varicosities. Reflexes 1+ with no gross motor deficits. NEUROLOGIC: Cranial nerves grossly intact. RECTAL: Exam is deferred. SKIN: No lesions. Assessment and Plan Assessment and Plan IMPRESSION 1. Hypercapnic respiratory failure 2. Bilateral pneumonia 3. Pulmonary edema 4. CHF and atrial fibrillation 5. Obstructive sleep apnea 6. Hypertension Plan; 1. Continue antibiotics. 2. Wean O2 to N/C 5 L. 3. Bipap at HS at 12/5 , FIO2 35 %. 4. Solumedrol 40 mg q6h. 5. Nebs q4h with duoneb. 6. Continue lasix 80 mg q8h 7. CXR BMP in Steve Mcdaniel MD Jun 27, 2016 19:46
--- NOTE | 2016-06-27 22:01 | EC ---
Study Study Date:06/27/2016 STUDY CONCLUSIONS SUMMARY - Procedure narrative: Transthoracic echocardiography. Image quality was fair. Scanning was performed from the parasternal, apical, and subcostal acoustic windows. - Left ventricle: The cavity size was mildly to moderately dilated. Wall thickness was normal. Systolic function was severely reduced. The estimated ejection fraction was in the range of 20% to 25%. Diffuse hypokinesis. - Mitral valve: Mild to moderate regurgitation. - Left atrium: The atrium was mildly dilated. - Right atrium: The atrium was mildly dilated. - Tricuspid valve: Mild regurgitation. - Pulmonary arteries: PA peak pressure: 45mm Hg (S). If LV function is below 40, please consider prescribing an ACEI or ARB or document rationale for non-use. PROCEDURE DATA STUDY STATUS: Elective. Procedure: Transthoracic echocardiography. Image quality was fair. Scanning was performed from the parasternal, apical, and subcostal acoustic windows. Study completion: The patient tolerated the procedure well. Transthoracic echocardiography. M-mode, complete 2D, complete spectral Doppler, and color Doppler. Height: Height: 62in. Weight: Weight: 267.4lb. Body mass index: BMI: 49kg/m^2. Body surface area: BSA: 2.16m^2. Patient status: Inpatient. CARDIAC ANATOMY LEFT VENTRICLE: The cavity size was mildly to moderately dilated. Wall thickness was normal. Systolic function was severely reduced. The estimated ejection fraction was in the range of 20% to 25%. Diffuse hypokinesis. AORTIC VALVE: Trileaflet; normal thickness leaflets. Doppler: Transvalvular velocity was within the normal range. There was no stenosis. No regurgitation. Valve area: 2.7cm^2(VTI). Indexed valve area: 1.25cm^2/m^2 (VTI). Valve area: 2.37cm^2 (Vmax). Indexed valve area: 1.1cm^2/m^2 (Vmax). Mean gradient: 5mm Hg (S). AORTA: Aortic root: The aortic root was normal in size. MITRAL VALVE: Structurally normal valve. Doppler: Transvalvular velocity was within the normal range. There was no evidence for stenosis. Mild to moderate regurgitation. Peak gradient: 5mm Hg (D). LEFT ATRIUM: The atrium was mildly dilated. RIGHT VENTRICLE: The cavity size was normal. Wall thickness was normal. PULMONIC VALVE: Doppler: Transvalvular velocity was within the normal range. There was no evidence for stenosis. No regurgitation. TRICUSPID VALVE: Structurally normal valve. Doppler: Transvalvular velocity was within the normal range. Mild regurgitation. PULMONARY ARTERY: The main pulmonary artery was normal-sized. Systolic pressure was within the normal range. RIGHT ATRIUM: The atrium was mildly dilated. PERICARDIUM: There was no pericardial effusion. SYSTEMIC VEINS: Inferior vena cava: The vessel was normal in size. Patient weight: 267.4lb _Ejection fraction:_ 65-75% _Fractional shortening:_ 32% up to 5Kg 5-11.5Kg 11.6-22.9Kg 23-45Kg 45-57Kg Aortic Root 7-13 <17 13-22 17-27 17-27 LA diam 6-13 <23 24-38 33-47 37-40 RVID 10-17 7-15 7-15 7-18 8-17 LVIDd 12-22 <32 24-38 33-47 37-40 LVPW 2-4 3-6 5-7 6-8 7-8 IVS 2-4 3-6 5-7 6-8 7-8 BASIC MEASUREMENTS ADULT NORMAL Left ventricle LV internal dimension, ED, chordal *63.5 mm 43-52 level, PLAX LV internal dimension, ES, chordal *58.2 mm 23-38 level, PLAX Fractional shortening, chordal level, *8 % >29 PLAX LV posterior wall thickness, ED 7.68 mm IVS/LVPW ratio, ED 0.99 <1.3 Ventricular septum Septal thickness, ED 7.59 mm Aortic valve Leaflet separation 18 mm 15-26 Aorta Root diameter, ED 31 mm Left atrium Anterior-posterior dimension 41 mm Anterior-posterior dimension index 1.9 cm/m^2 <2.2 BASIC MEASUREMENTS ADULT NORMAL Aortic valve Leaflet separation 18 mm 15-26 DOPPLER MEASUREMENTS ADULT NORMAL Main pulmonary artery Pressure, S *45 mm Hg =30 Aortic valve Peak velocity, S 146 cm/s Mean velocity, S 97.4 cm/s VTI, S 20.5 cm Mean gradient, S 5 mm Hg Valve area, VTI 2.7 cm^2 Valve area index, VTI 1.25 cm^2/m^2 Valve area, Vmax 2.37 cm^2 Valve area index, Vmax 1.1 cm^2/m^2 Mitral valve Peak E-wave velocity 116 cm/s Peak gradient, D 5 mm Hg Tricuspid valve Regurgitant peak velocity 247 cm/s Peak RV-RA gradient, S 24 mm Hg Maximal regurgitant velocity 247 cm/s Systemic veins Estimated CVP 10 mm Hg Right ventricle RV pressure, S *48 mm Hg <30 Pulmonic valve Peak velocity, S 83.4 cm/s LEGEND: Mean values are shown as u=mean value. Asterisk (*) chávez values outside specified normal range. Prepared and signed by Sudhakar Boo [id number]
[2016-06-27] MEDS: LORazepam 2 MG/ML VIAL IV PRN (22:18)
--- NOTE | 2016-06-27 22:34 | EKG ---
Date Performed: 06/26/2016 Time Performed: 10:04:44 PTAGE: 66 years EKG: Atrial fibrillation with uncontrolled ventricular response Inferior and anterior T wave sandhya nges are nonspecific Low QRS voltages in precordial leads Compared to previous tracing, there has bee n an acceleration in the ventricular response to the atrial fibrillation. Abnormal ECG PREVIOUS TRACING : 06/18/2013 05.29 DOCTOR: Tiffanie Mcfarlane Interpretating Date/Time 06/27/2016 22:33:27
[2016-06-28] VITALS (36 sets, daily range): BP systolic 68–131; BP diastolic 56–89; PULSE 76–114; RESP 18–41; TEMP 97.5–98.4; O2SAT 85–95
[2016-06-28] MEDS: DILTIAZEM HCL 60 MG TAB PO SCH ×2 (00:23→05:23)
[2016-06-28] MEDS: FUROSEMIDE 100 MG/10 ML VIAL IV PUSH SCH ×3 (02:10→17:07)
[2016-06-28] MEDS: methylPREDNISolone SOD SUCC 40 MG/1 ML VIAL IV PUSH SCH ×3 (02:10→18:44)
[2016-06-28] MEDS: CHLORHEXIDINE GLUCONATE 2 % 1 PACK (2 CLOTHS) TOP SCH (04:00)
[2016-06-28] MEDS: INSULIN NovoLIN REGULAR SUPPLEMENTAL SCALE SQ SCH ×6 (04:05→20:14)
[2016-06-28] MEDS: ENOXAPARIN SODIUM 80 MG/0.8 ML SYRINGE SQ SCH (05:23)
--- NOTE | 2016-06-28 06:17 | HHI.CCPN ---
Subjective Remarks/Hospital Course Hospital Course: This is a 66-year-old woman super morbidly obese female that presented to the ED with dyspnea and angina. Per ED report, the patient been feeling ill for several weeks.Her symptomatology worsened which she described as worsening cough , productive of green phlegm, chills, trouble breathing, and chest tightness. She has a history of COPD, CHF, A. fib. . The patient is an active smoker. She still smokes. In the ED, imaging and laboratory studies were obtained. The patient was noted to be in A. fib RVR,HR 180's a Cardizem infusion was initiated , imaging studies revealed pulmonary edema versus pneumonia process, Lasix was given. The patient was placed on BiPAP, O2 sat ranging 92-95%. Critical care medicine is consulted for treatment and management. Subjective: 06/27: cardiology and pulm evaluated patient. per their recommendations, amiodarone discontinued and dilt drip instituted. echo evaluation of probable chf exacerbation still pending. 06/28: dilt drip weaned off yesterday. HR well controlled. EF significantly depressed on echo, 20-25%. IVC dilated without respiratory variation. lasix increased yesterday to 80 iv q8h with adequate diuresis, net -1L. Refused BiPAP overnight. SpO2 still 89% on face mask, but patient is not currently in distress. Objective Vital Signs Date Time Temp Pulse Resp B/P Pulse Ox O2 Delivery O2 Flow Rate FiO2 06/28/16 05:00 88 27 124/69 91 06/28/16 04:00 97.5 06/28/16 00:45 50 06/27/16 22:00 Aerosol Mask 06/27/16 16:15 Intake and Output 06/27/16 06/27/16 06/28/16 08:00 16:00 00:00 Intake Total 118 ml 1040 ml 860 ml Output Total 575 ml 1125 ml 1800 ml Balance -457 ml -85 ml -940 ml Result Diagram: 06/27/16 0429 06/27/16 0429 Other Results Microbiology Date/Time Procedure Status Source Growth 06/26/16 10:18 Influenza Types A,B Antigen (TONY) - Final Complete Nasal Washing NEGATIVE FOR FLU A AND B ANTIGEN.... Imaging Last Impressions Chest X-Ray 06/26/16 1013 Signed Impressions: Service Date/Time: June 11:03 - CONCLUSION: 1. New alveolar consolidation within the left upper lung field consistent with asymmetric pulmonary edema versus pneumonia. Clinical correlation is recommended. 2. Cardiomegaly. Amanuel Negron MD Objective Remarks GENERAL: morbidly obese female, semirecumbent in bed on high flow face mask HEAD: Atraumatic. Normocephalic. EYES: PERRLA. No scleral icterus. No injection or drainage. ENT: No nasal bleeding or discharge. Mucous membranes pink and moist. NECK: Trachea midline. Unable to assess JVD secondary to morbid obesity. CARDIOVASCULAR: Irregularly irregular rate/rhythm. rate controlled this morning. RESPIRATORY: No accessory muscle use. Coarse breath sounds bilaterally to auscultation, throughout lung field. Breath sounds equal bilaterally. on facemask o2. GASTROINTESTINAL: Abdomen soft, obese non-tender, nondistended. No guarding. MUSCULOSKELETAL: Extremities without clubbing, cyanosis. No obvious deformities. NEUROLOGICAL: Awake and alert. RASS 0. No gross focal/sensory deficits. Follows commands in all 4 extremities. A/P Assessment and Plan This is a 66-year-old super morbidly obese female with a recent history of pneumonia that presented to the ED COPD exacerbation , probable CHF,A. fib and RVR and hypoxic respiratory failure. The patient's echo from several years ago revealed an ejection fraction of 35-40%. Heart rate upon presentation to the ED was 180s. The patient was initially on cardizem drip and now weaned to off. Her hypoxia persists, and likely there is a multifactorial component to this, including COPD exacerbation, systolic CHF exacerbation, community acquired pneumonia. Certainly, she would benefit from BiPAP at this point, yet she continues to refuse it. We have counseled her that she may require intubation if she cannot comply with our recommendations. For now, we will continue forced diuresis and antibiotics. Plan by systems: Neurologic: -No acute issues -GCS 15 Respiratory: COPD exacerbation Multilobular CAP pneumonia Pulmonary edema Nicotine abuse -Maintain O2 sat greater than 88%. Continue to encourage BiPAP. -Patient's home med Lasix 80 mg twice a day, continue Lasix 80 iv q8h. -CXR 06/26-left upper lung [place] consistent with asymmetric pulmonary edema versus pneumonia, cardiomegaly -Continue Breo (home med) daily -Nicotine patch high-dose daily - DuoNeb to every 4 hours scheduled, every 2 hour when necessary -Patient counseled on cessation of smoking -Pulmicort consult appreciate recommendations -Initiate Solu-Medrol 40 every 12 hours - Pulm following. Cardiovascular: Acute systolic Congestive heart failure Cardiomegaly Atrial Fibrillation with rapid ventricular response- now rate controlled. -EKG1/ ED -A. fib RVR, HR 180's -Cardizem 60 po q6hr. off drip. -Metoprolol 2.5 mg IV every 6hr for heart rate greater than 100 -Continue home meds metoprolol 25 mg twice a day -Continue lisinopril 5 mg/day -Continue ASA 325 mg daily -Cardiology consult- Dr. Hussein following -echo 06/27: new EF 20-25%. prior echo 06/20/13 EF 3540 % -trop negative. BNP 500s. Renal: Renal insufficiency -Creatinine 1.4-consider ARB, consider ACEI -- Strict I/Os -monitor and document urinary output FEN/GI: Morbid Obesity -hold home lasix 80 po bid, continue lasix 80mg iv q8hr. -mg sulfate 2gm iv x 1 now. -Continue potassium by mouth 20 meq daily - continue carb controlled, heart healthy diet as tolerated. - 500mL fluid restriction. - goal 2L negative by AM. Heme/ID: Sepsis Leukocytosis Community-acquired pneumonia Bandemia -Monitor CBC. downtrending. -continue empiric antibiotics- Levofloxacin, and Vancomycin -obtain sputum culture -06/26 blood cultures NGTD. Endocrine: Hyperglycemia -No acute issues -glycemic control improved on high scale SSI, q4h. continue. Prophylaxis: GI Prophylaxis Protonix IV, change to pepcid q12h. DVT Prophylaxis -- SCDs Therapeutic lovenox 80 q12h, new-onset Afib with CHADS-VaSC > 2 (CHF) Lines: Peripheral IV's. Central line if indicated Dispo: if she remains stable throughout the day, I think we can safely transition her to hospitalist service and out of the ICU. Sanket Castro MD Jun 28, 2016 06:16
[2016-06-28 06:22] LABS: HEMATOCRIT 40.1 % (35.0-46.0); MEAN CELL VOLUME 81.6 FL (80.0-100.0); MEAN CORPUSCULAR HEMOGLOBIN 26.8 PG (27.0-34.0); MEAN CORPUSCULAR HGB CONC 32.8 % (32.0-36.0); PLATELET COUNT 301 TH/MM3 (150-450); RED BLOOD COUNT 4.91 MIL/MM3 (4.00-5.30); RED CELL DISTRIBUTION WIDTH 14.1 % (11.6-17.2); REVIEW FLAG FINAL
[2016-06-28 06:29] LABS: POTASSIUM 3.9 MEQ/L (3.5-5.1)
[2016-06-28 06:31] LABS: BICARBONATE 33.5 MEQ/L (21.0-32.0)
[2016-06-28] MEDS: MAGNESIUM SULFATE 1 GM PREMIX 100 ML IV SCH ×2 (06:43→07:50)
--- NOTE | 2016-06-28 06:55 | RADHPO ---
EXAM DATE/TIME: 06/28/2016 06:21 [facility] COMPARISON: CHEST SINGLE AP, June 27, 2016, 6:11. INDICATIONS : Shortness of breath. MEDICAL HISTORY : Chronic obstructive pulmonary disease. Congestive heart failure. AFIB SURGICAL HISTORY : Tubal ligation. ENCOUNTER: Subsequent ACUITY: 4 - 6 days PAIN SCORE: 0/10 LOCATION: Bilateral chest FINDINGS: The cardiac silhouette is enlarged in transverse diameter. There are findings of congestive heart ian lure with interstitial and alveolar opacity bilaterally. No pleural effusions are identified. CONCLUSION: 1. Cardiomegaly and findings of congestive heart failure. There has been no significant change when c ompared to the prior exam. Davon Cuba MD on June 28, 2016 at 6:53 Board Certified Radiologist. This report was verified electronically.
[2016-06-28] MEDS: RESP: IPRATROPIUM 0.5 MG/2.5 ML NEB NEB PRN ×2 (08:08→23:33)
[2016-06-28] MEDS: NICOTINE 21 MG/24 HR PATCH TD SCH (08:55)
[2016-06-28] MEDS: FLUTICASONE 100 MCG/VILANTEROL 25 MCG INHALER INH SCH (08:55)
[2016-06-28] MEDS: DOCUSATE SODIUM 100 MG CAP PO SCH ×2 (08:56→20:14)
[2016-06-28] MEDS: FAMOTIDINE 20 MG TAB PO SCH ×2 (08:56→20:14)
[2016-06-28] MEDS: POTASSIUM CHLORIDE 20 MEQ CONTROLLED RELEASE TAB PO SCH ×2 (08:56→20:14)
[2016-06-28] MEDS: METOPROLOL TARTRATE 25 MG TAB PO SCH (08:56)
[2016-06-28] MEDS: LISINOPRIL 5 MG TAB PO SCH (08:57)
[2016-06-28] MEDS: REMOVE OLD NICODERM (NICOTINE) PATCH TD SCH (09:00)
[2016-06-28] MEDS: SODIUM CHLORIDE 0.9% FLUSH 5 ML FLUSH IV FLUSH SCH ×2 (09:00→18:45)
--- NOTE | 2016-06-28 09:13 | PD.CARD.PN ---
Subjective Subjective Remarks Pt feeling much better, reasonable but slightly higher rates of afib on tele. Objective Medications Administered Medications Medications (Trade) Dose Ordered Sig/Melina Route PRN Reason Start Time Stop Time Status Last Admin Dose Admin IV Flush (NS Flush) 2 ml BID IV FLUSH 06/26/16 21:00 06/27/16 19:26 Docusate Sodium (Colace) 100 mg BID PO 06/26/16 21:00 06/28/16 08:56 Miscellaneous Information 1 Q361D XX 06/26/16 13:00 06/26/16 13:00 Chlorhexidine Gluconate (Chlorhexidine 2% Cloth) 3 pack Taper DAILY@04 TOP 06/27/16 04:00 06/23/17 03:59 06/28/16 04:00 Fluticasone/ Vilanterol (Breo Ellipta 100-25 Inh) 1 puff DAILY INH 06/27/16 09:00 06/28/16 08:55 Furosemide (Lasix) 80 mg DAILY@09,18 PO 06/26/16 18:00 Hold 06/27/16 08:59 Lisinopril (Prinivil) 5 mg DAILY PO 06/27/16 09:00 06/28/16 08:57 Metoprolol Tartrate (Lopressor) 25 mg BID PO 06/26/16 21:00 06/28/16 08:56 Potassium Chloride 20 meq 20 meq BID PO 06/26/16 21:00 06/28/16 08:56 Vancomycin HCl/ Sodium Chloride (Vancomycin Inj/ NS 500 ml Inj) 517 ml @ 250 mls/hr DAILY@14 IV 06/27/16 14:00 06/27/16 14:10 Lorazepam (Ativan Inj) 0.5 mg Q4H PRN IV AGITATION/RESTLESSNESS/ANXIETY 06/26/16 21:15 06/27/16 22:18 Insulin Human Regular (NovoLIN R SUPPLEMENTAL SCALE) 1 Q4HR SQ 06/27/16 12:00 06/28/16 08:54 Nicotine (Habitrol 21 Mg Patch.24 Hr) 1 patch DAILY TD 06/27/16 10:45 06/28/16 08:55 Furosemide (Lasix Inj) 80 mg Q8H IV PUSH 06/28/16 02:00 06/28/16 02:10 Methylprednisolone Sodium Succinate (SoluMEDROL INJ) 40 mg Q8H IV PUSH 06/28/16 03:00 06/28/16 02:10 Famotidine (Pepcid) 20 mg BID PO 06/28/16 09:00 06/28/16 08:56 Vital Signs / I&O Vital Signs Date Time Temp Pulse Resp B/P Pulse Ox O2 Delivery O2 Flow Rate FiO2 06/28/16 08:08 95 Aerosol Mask 50 06/28/16 06:00 104 06/28/16 06:00 104 38 119/73 91 06/28/16 05:00 88 27 124/69 91 06/28/16 04:00 80 06/28/16 04:00 97.5 80 22 126/71 92 06/28/16 03:00 82 19 127/75 92 06/28/16 02:00 76 06/28/16 02:00 76 22 117/70 92 06/28/16 01:00 76 18 110/65 93 06/28/16 00:45 93 50 06/28/16 00:00 86 06/28/16 00:00 97.5 86 26 108/69 89 06/27/16 23:00 82 06/27/16 23:00 82 23 124/81 90 06/27/16 22:00 86 06/27/16 22:00 86 26 134/85 94 06/27/16 22:00 87 Aerosol Mask 70 06/27/16 21:00 78 28 95/58 91 06/27/16 20:40 90 Aerosol Mask 70 06/27/16 20:00 101 06/27/16 20:00 93 Aerosol Mask 70 06/27/16 20:00 97.5 78 26 118/67 93 06/27/16 19:00 86 24 124/59 97 06/27/16 18:00 86 25 117/89 93 06/27/16 18:00 86 06/27/16 17:00 90 28 119/60 95 06/27/16 16:15 93 Aerosol Mask 70 06/27/16 16:00 98.1 82 48 117/64 94 06/27/16 16:00 82 06/27/16 15:00 80 06/27/16 15:00 80 34 127/87 97 06/27/16 14:00 84 06/27/16 14:00 84 39 120/87 95 06/27/16 13:00 84 22 127/54 98 06/27/16 12:00 88 06/27/16 12:00 97.6 88 29 132/60 95 06/27/16 11:00 98 37 136/60 90 06/27/16 10:00 106 06/27/16 10:00 92 37 137/88 93 I/O 06/27/16 06/27/16 06/27/16 06/28/16 06/28/16 06/28/16 07:00 15:00 23:00 07:00 15:00 23:00 Intake Total 118 ml 1040 ml 860 ml 60 ml Output Total 575 ml 1125 ml 1800 ml 1900 ml Balance -457 ml -85 ml -940 ml -1840 ml Intake Oral 0 ml 720 ml 60 ml 60 ml IV Total 118 ml 320 ml 800 ml Output Urine Total 575 ml 1125 ml 1800 ml 1900 ml # Bowel Movements 0 0 0 Physical Exam GENERAL: This is an obese pt, no distress CARDIOVASCULAR: Regular rate and rhythm without murmurs, gallops, or rubs. RESPIRATORY: decreased breath sounds, wheezes GASTROINTESTINAL: Abdomen soft, non-tender, nondistended. Normal active bowel sounds MUSCULOSKELETAL: 1+ LE edema NEURO: Alert & Oriented x4 to person, place, time, situation. Moves all ext x4 Laboratory Laboratory Tests Test 06/28/16 06:10 White Blood Count 19.0 TH/MM3 Red Blood Count 4.91 MIL/MM3 Hemoglobin 13.2 GM/DL Hematocrit 40.1 % Mean Corpuscular Volume 81.6 FL Mean Corpuscular Hemoglobin 26.8 PG Mean Corpuscular Hemoglobin 32.8 % Concent Red Cell Distribution Width 14.1 % Platelet Count 301 TH/MM3 Mean Platelet Volume 8.6 FL Sodium Level 144 MEQ/L Potassium Level 3.9 MEQ/L Chloride Level 104 MEQ/L Carbon Dioxide Level 33.5 MEQ/L Anion Gap 7 MEQ/L Blood Urea Nitrogen 44 MG/DL Creatinine 1.30 MG/DL Estimat Glomerular Filtration 41 ML/MIN Rate Random Glucose 160 MG/DL Calcium Level 9.0 MG/DL Imaging Last Impressions Chest X-Ray 06/28/16 0600 Signed Impressions: Service Date/Time: Tuesday, June 28, 2016 06:21 - CONCLUSION: 1. Cardiomegaly and findings of congestive heart failure. There has been no significant change when compared to the prior exam. Davon Cuba MD Chest CT [id number]/27/[id number] Signed Impressions: Service Date/Time: Monday, June 27, 2016 09:52 - CONCLUSION: Multifocal airspace consolidation and areas of patchy groundglass opacity most consistent with an infectious process. Significant cardiomegaly. Given the distribution of the air space opacities this is not felt to represent congestive heart failure.. Gail Mcleod MD Assessment and Plan Problem List: (1) Cardiomyopathy Assessment and Plan: LVEF 20-25%, perhaps NICM due to uncontrolled afib, would like a nuc stress prior to d/c. (2) Atrial fibrillation with RVR Assessment and Plan: stopped lovenox, started eliquis, changed ccb to coreg, on oscar-I (3) Systolic CHF, acute on chronic Assessment and Plan: compensating well, continue IV lasix for now. (4) COPD exacerbation Assessment and Plan: per medical team (5) Tobacco abuse counseling Assessment and Plan: counseled at length Rene Bonilla MD Jun 28, 2016 09:13
[2016-06-28] MEDS: CARVEDILOL 12.5 MG TAB PO SCH ×2 (10:00→20:14)
[2016-06-28] MEDS ORDERED: DILTIAZEM HCL 60 MG TAB PO SCH (12:00)
[2016-06-28] MEDS: VANCOMYCIN INJ 1,700 MG in SODIUM CHLORID 0.9% 500 ML INJ 500 ML IV SCH (14:22)
--- NOTE | 2016-06-28 18:37 | HHI.PR ---
Subjective Remarks 66 YOWF with Bilat groundglass infilt, wheezing, RF Was on 70% Fio0, now weaned to5LNC has persistant cogh no fever Objective Vital Signs Vital Signs Date Time Temp Pulse Resp B/P Pulse Ox O2 Delivery O2 Flow Rate FiO2 06/28/16 18:24 99 06/28/16 18:00 112 30 106/65 91 06/28/16 17:00 97.8 106 29 98/56 95 06/28/16 16:40 94 Nasal Cannula 5.00 06/28/16 16:00 100 25 98/61 94 06/28/16 16:00 88 06/28/16 15:00 114 41 127/63 92 06/28/16 14:46 110 06/28/16 14:02 106 32 114/63 92 06/28/16 13:00 98 36 120/89 92 06/28/16 12:35 78 06/28/16 12:00 98 30 125/70 90 06/28/16 11:42 98.3 92 24 95 06/28/16 11:30 94 27 90 06/28/16 11:08 90 29 102/63 94 06/28/16 10:25 78 06/28/16 10:00 82 23 126/86 88 06/28/16 09:25 100 25 113/62 94 06/28/16 08:15 88 06/28/16 08:08 95 Aerosol Mask 50 06/28/16 08:08 90 30 107/83 95 06/28/16 07:00 97.9 88 28 119/80 94 06/28/16 07:00 94 Humidified 70 Aerosol Mask 06/28/16 06:00 104 06/28/16 06:00 104 38 119/73 91 06/28/16 05:00 88 27 124/69 91 06/28/16 04:00 80 06/28/16 04:00 97.5 80 22 126/71 92 06/28/16 03:00 82 19 127/75 92 06/28/16 02:00 76 06/28/16 02:00 76 22 117/70 92 06/28/16 01:00 76 18 110/65 93 06/28/16 00:45 93 50 06/28/16 00:00 86 06/28/16 00:00 97.5 86 26 108/69 89 06/27/16 23:00 82 06/27/16 23:00 82 23 124/81 90 06/27/16 22:00 86 06/27/16 22:00 86 26 134/85 94 06/27/16 22:00 87 Aerosol Mask 70 06/27/16 21:00 78 28 95/58 91 06/27/16 20:40 90 Aerosol Mask 70 06/27/16 20:00 101 06/27/16 20:00 93 Aerosol Mask 70 06/27/16 20:00 97.5 78 26 118/67 93 06/27/16 19:00 86 24 124/59 97 I/O 06/27/16 06/27/16 06/27/16 06/28/16 06/28/16 06/28/16 07:00 15:00 23:00 07:00 15:00 23:00 Intake Total 118 ml 1040 ml 860 ml 60 ml 679 ml Output Total 575 ml 1125 ml 1800 ml 1900 ml 1175 ml Balance -457 ml -85 ml -940 ml -1840 ml -496 ml Intake Oral 0 ml 720 ml 60 ml 60 ml 325 ml IV Total 118 ml 320 ml 800 ml 354 ml Output Urine Total 575 ml 1125 ml 1800 ml 1900 ml 1175 ml # Bowel Movements 0 0 0 0 Result Diagram: 06/28/16 0610 06/28/16 06 Objective Remarks GENERAL: WBWN WF,mild sob SKIN: Warm and dry. HEAD: Normocephalic. EYES: No scleral icterus. No injection or drainage. NECK: Supple, trachea midline. No JVD or lymphadenopathy. CARDIOVASCULAR: Regular rate and rhythm without murmurs, gallops, or rubs. RESPIRATORY: Breath sounds equal bilaterally. No accessory muscle use. Bilat Exp rhonchi GASTROINTESTINAL: Abdomen soft, non-tender, nondistended. MUSCULOSKELETAL: No cyanosis, or edema. BACK: Nontender without obvious deformity. No CVA tenderness. A/P Assessment and Plan Hypoxic RF COPD Exac Bilat infilt AF CHF SHAMEKA PLAN: Aerosol nebs IV Solumedrol Cont Abx Robitussin AC cough syp Tessalon 200 mg tid 02 to keep sat >90% Aquilino Rodriguez MD Jun 28, 2016 18:37
[2016-06-28] MEDS ORDERED: guaiFENesin/CODEINE SYRUP 200 MG/20 MG/10 ML CUP PO PRN (18:45)
[2016-06-28] MEDS: APIXABAN 5 MG TABLET PO SCH (20:14)
[2016-06-28] MEDS: SODIUM CHLORIDE 0.9% FLUSH 5 ML FLUSH IV FLUSH PRN (20:15)
[2016-06-29] VITALS (36 sets, daily range): BP systolic 98–150; BP diastolic 59–100; PULSE 82–124; RESP 16–49; TEMP 97.5–98.5; O2SAT 90–98
[2016-06-29] MEDS: FUROSEMIDE 100 MG/10 ML VIAL IV PUSH SCH (01:43)
[2016-06-29] MEDS: methylPREDNISolone SOD SUCC 40 MG/1 ML VIAL IV PUSH SCH ×3 (03:06→18:40)
[2016-06-29] MEDS: INSULIN NovoLIN REGULAR SUPPLEMENTAL SCALE SQ SCH ×6 (04:00→20:09)
[2016-06-29] MEDS: CHLORHEXIDINE GLUCONATE 2 % 1 PACK (2 CLOTHS) TOP SCH (05:13)
[2016-06-29 06:27] LABS: HEMATOCRIT 41.8 % (35.0-46.0); MEAN CELL VOLUME 81.3 FL (80.0-100.0); MEAN CORPUSCULAR HEMOGLOBIN 26.9 PG (27.0-34.0); MEAN CORPUSCULAR HGB CONC 33.1 % (32.0-36.0); PLATELET COUNT 289 TH/MM3 (150-450); RED BLOOD COUNT 5.14 MIL/MM3 (4.00-5.30); RED CELL DISTRIBUTION WIDTH 14.1 % (11.6-17.2); REVIEW FLAG FINAL; WHITE BLOOD COUNT 13.3 TH/MM3 (4.0-11.0)
[2016-06-29 06:35] LABS: POTASSIUM 3.9 MEQ/L (3.5-5.1)
[2016-06-29 06:38] LABS: BICARBONATE 34.8 MEQ/L (21.0-32.0)
[2016-06-29] MEDS: RESP: IPRATROPIUM 0.5 MG/2.5 ML NEB NEB PRN ×3 (07:54→22:05)
--- NOTE | 2016-06-29 08:47 | PD.CARD.PN ---
Subjective Subjective Remarks Pt feels better, afib rates still slightly fast. Objective Medications Administered Medications Medications (Trade) Dose Ordered Sig/Melina Route PRN Reason Start Time Stop Time Status Last Admin Dose Admin IV Flush (NS Flush) 2 ml UNSCH PRN IV FLUSH FLUSH AFTER USING IV ACCESS 06/26/16 13:00 06/28/16 20:15 IV Flush (NS Flush) 2 ml BID IV FLUSH 06/26/16 21:00 06/28/16 18:45 Docusate Sodium (Colace) 100 mg BID PO 06/26/16 21:00 06/28/16 20:14 Bisacodyl (Dulcolax Supp) 10 mg DAILY PRN RECTAL CONSTIPATION 06/26/16 13:00 06/29/16 01:44 Miscellaneous Information 1 Q361D XX 06/26/16 13:00 06/26/16 13:00 Chlorhexidine Gluconate (Chlorhexidine 2% Cloth) 3 pack Taper DAILY@04 TOP 06/27/16 04:00 06/23/17 03:59 06/29/16 05:13 Fluticasone/ Vilanterol (Breo Ellipta 100-25 Inh) 1 puff DAILY INH 06/27/16 09:00 06/28/16 08:55 Furosemide (Lasix) 80 mg DAILY@18 PO 06/26/16 18:00 Hold 06/27/16 08:59 Lisinopril (Prinivil) 5 mg DAILY PO 06/27/16 09:00 06/28/16 08:57 Potassium Chloride 20 meq 20 meq BID PO 06/26/16 21:00 06/28/16 20:14 Vancomycin HCl/ Sodium Chloride (Vancomycin Inj/ NS 500 ml Inj) 517 ml @ 250 mls/hr DAILY@14 IV 06/27/16 14:00 06/28/16 14:22 Lorazepam (Ativan Inj) 0.5 mg Q4H PRN IV AGITATION/RESTLESSNESS/ANXIETY 06/26/16 21:15 06/27/16 22:18 Insulin Human Regular (NovoLIN R SUPPLEMENTAL SCALE) 1 Q4HR SQ 06/27/16 12:00 06/28/16 20:14 Nicotine (Habitrol 21 Mg Patch.24 Hr) 1 patch DAILY TD 06/27/16 10:45 06/28/16 08:55 Miscellaneous Information 1 DAILY TD 06/28/16 09:00 06/28/16 09:00 Furosemide (Lasix Inj) 80 mg Q8H IV PUSH 06/28/16 02:00 06/29/16 01:43 Methylprednisolone Sodium Succinate (SoluMEDROL INJ) 40 mg Q8H IV PUSH 06/28/16 03:00 06/29/16 03:06 Famotidine (Pepcid) 20 mg BID PO 06/28/16 09:00 06/28/16 20:14 Apixaban (Eliquis) 5 mg BID PO 06/28/16 21:00 06/28/16 20:14 Carvedilol (Coreg) 12.5 mg Q12HR PO 06/28/16 10:00 06/28/16 20:14 Vital Signs / I&O Vital Signs Date Time Temp Pulse Resp B/P Pulse Ox O2 Delivery O2 Flow Rate FiO2 06/29/16 08:01 92 Nasal Cannula 5.00 06/29/16 06:01 82 16 107/62 93 06/29/16 06:00 96 06/29/16 05:01 84 18 107/66 94 06/29/16 04:01 97.5 84 16 115/63 90 06/29/16 04:00 88 06/29/16 03:19 94 23 121/85 91 06/29/16 02:01 98 21 131/98 93 06/29/16 02:00 85 06/29/16 01:01 96 20 104/69 94 06/29/16 00:01 98.4 82 19 117/79 91 06/29/16 00:00 92 06/28/16 23:01 100 26 113/74 94 06/28/16 22:00 80 06/28/16 22:00 94 21 118/62 85 06/28/16 21:00 94 26 114/84 94 06/28/16 20:15 93 Nasal Cannula 5.00 06/28/16 20:00 98.4 92 20 116/59 94 06/28/16 20:00 92 06/28/16 19:47 94 19 95/62 94 06/28/16 19:04 110 30 131/80 95 06/28/16 19:00 92 Nasal Cannula 5.00 06/28/16 19:00 102 26 68/58 93 06/28/16 18:24 99 06/28/16 18:00 112 30 106/65 91 06/28/16 17:00 97.8 106 29 98/56 95 06/28/16 16:40 94 Nasal Cannula 5.00 06/28/16 16:00 100 25 98/61 94 06/28/16 16:00 88 06/28/16 15:00 114 41 127/63 92 06/28/16 14:46 110 06/28/16 14:02 106 32 114/63 92 06/28/16 13:00 98 36 120/89 92 06/28/16 12:35 78 06/28/16 12:00 98 30 125/70 90 06/28/16 11:42 98.3 92 24 95 06/28/16 11:30 94 27 90 06/28/16 11:08 90 29 102/63 94 06/28/16 10:25 78 06/28/16 10:00 82 23 126/86 88 06/28/16 09:25 100 25 113/62 94 I/O 06/28/16 06/28/16 06/28/16 06/29/16 06/29/16 06/29/16 07:00 15:00 23:00 07:00 15:00 23:00 Intake Total 60 ml 679 ml 30 ml 60 ml Output Total 1900 ml 1175 ml 875 ml 875 ml Balance -1840 ml -496 ml -845 ml -815 ml Intake Oral 60 ml 325 ml 30 ml 60 ml IV Total 354 ml Output Urine Total 1900 ml 1175 ml 875 ml 875 ml # Bowel Movements 0 0 0 4 Physical Exam GENERAL: This is an obese pt, no distress CARDIOVASCULAR:irregularly irregular, mildly fastwithout murmurs, gallops, or rubs. RESPIRATORY: decreased breath sounds, wheezes GASTROINTESTINAL: Abdomen soft, non-tender, nondistended. Normal active bowel sounds MUSCULOSKELETAL: 1+ LE edema NEURO: Alert & Oriented x4 to person, place, time, situation. Moves all ext x4 Laboratory Laboratory Tests Test 06/29/16 06:12 White Blood Count 13.3 TH/MM3 Red Blood Count 5.14 MIL/MM3 Hemoglobin 13.8 GM/DL Hematocrit 41.8 % Mean Corpuscular Volume 81.3 FL Mean Corpuscular Hemoglobin 26.9 PG Mean Corpuscular Hemoglobin 33.1 % Concent Red Cell Distribution Width 14.1 % Platelet Count 289 TH/MM3 Mean Platelet Volume 8.9 FL Sodium Level 145 MEQ/L Potassium Level 3.9 MEQ/L Chloride Level 103 MEQ/L Carbon Dioxide Level 34.8 MEQ/L Anion Gap 7 MEQ/L Blood Urea Nitrogen 54 MG/DL Creatinine 1.30 MG/DL Estimat Glomerular Filtration 41 ML/MIN Rate Random Glucose 157 MG/DL Calcium Level 8.5 MG/DL Imaging Last Impressions Chest X-Ray 06/28/16 0600 Signed Impressions: Service Date/Time: Tuesday, June 28, 2016 06:21 - CONCLUSION: 1. Cardiomegaly and findings of congestive heart failure. There has been no significant change when compared to the prior exam. Davon Cuba MD Chest CT 06/27/161957 Signed Impressions: Service Date/Time: Monday, June 27, 2016 09:52 - CONCLUSION: Multifocal airspace consolidation and areas of patchy groundglass opacity most consistent with an infectious process. Significant cardiomegaly. Given the distribution of the air space opacities this is not felt to represent congestive heart failure.. Gail Mcleod MD Assessment and Plan Problem List: (1) Cardiomyopathy Assessment and Plan: LVEF 20-25%, perhaps NICM due to uncontrolled afib, would like a nuc stress prior to d/c; on oscar/bb, she declines Life-vest. (2) Atrial fibrillation with RVR Assessment and Plan: on eliquis, will increase coreg for better rate control. (3) Systolic CHF, acute on chronic Assessment and Plan: compensating well, decreasing IV lasix, perhaps change to PO tomorrow. (4) COPD exacerbation Assessment and Plan: per medical team (5) Tobacco abuse counseling Assessment and Plan: counseled at length Rene Bonilla MD Jun 29, 2016 08:47
--- NOTE | 2016-06-29 08:52 | HHI.PR ---
Subjective Remarks Follow-up for pneumonia, COPD exacerbation, A. fib RVR, CHF. Care assumed from critical care today. Patient states she has a mild cough always and is SOB but feels better than her baseline. Denies chest pain. Denies fevers. Objective Vitals Vital Signs Date Time Temp Pulse Resp B/P Pulse Ox O2 Delivery O2 Flow Rate FiO2 06/29/16 08:01 92 Nasal Cannula 5.00 06/29/16 06:01 82 16 107/62 93 06/29/16 06:00 96 06/29/16 05:01 84 18 107/66 94 06/29/16 04:01 97.5 84 16 115/63 90 06/29/16 04:00 88 06/29/16 03:19 94 23 121/85 91 06/29/16 02:01 98 21 131/98 93 06/29/16 02:00 85 06/29/16 01:01 96 20 104/69 94 06/29/16 00:01 98.4 82 19 117/79 91 06/29/16 00:00 92 06/28/16 23:01 100 26 113/74 94 06/28/16 22:00 80 06/28/16 22:00 94 21 118/62 85 06/28/16 21:00 94 26 114/84 94 06/28/16 20:15 93 Nasal Cannula 5.00 06/28/16 20:00 98.4 92 20 116/59 94 06/28/16 20:00 92 06/28/16 19:47 94 19 95/62 94 06/28/16 19:04 110 30 131/80 95 06/28/16 19:00 92 Nasal Cannula 5.00 06/28/16 19:00 102 26 68/58 93 06/28/16 18:24 99 06/28/16 18:00 112 30 106/65 91 06/28/16 17:00 97.8 106 29 98/56 95 06/28/16 16:40 94 Nasal Cannula 5.00 06/28/16 16:00 100 25 98/61 94 06/28/16 16:00 88 06/28/16 15:00 114 41 127/63 92 06/28/16 14:46 110 06/28/16 14:02 106 32 114/63 92 06/28/16 13:00 98 36 120/89 92 06/28/16 12:35 78 06/28/16 12:00 98 30 125/70 90 06/28/16 11:42 98.3 92 24 95 06/28/16 11:30 94 27 90 06/28/16 11:08 90 29 102/63 94 06/28/16 10:25 78 06/28/16 10:00 82 23 126/86 88 06/28/16 09:25 100 25 113/62 94 I/O 06/28/16 06/28/16 06/28/16 06/29/16 06/29/16 06/29/16 07:00 15:00 23:00 07:00 15:00 23:00 Intake Total 60 ml 679 ml 30 ml 60 ml Output Total 1900 ml 1175 ml 875 ml 875 ml Balance -1840 ml -496 ml -845 ml -815 ml Intake Oral 60 ml 325 ml 30 ml 60 ml IV Total 354 ml Output Urine Total 1900 ml 1175 ml 875 ml 875 ml # Bowel Movements 0 0 0 4 Result Diagram: 06/29/1612 06/29/16 0612 Imaging Last Impressions Chest X-Ray 06/28/16 0600 Signed Impressions: Service Date/Time: Tuesday, June 28, 2016 06:21 - CONCLUSION: 1. Cardiomegaly and findings of congestive heart failure. There has been no significant change when compared to the prior exam. Davon Cuba MD Chest CT 06/27/161957 Signed Impressions: Service Date/Time: Monday, June 27, 2016 09:52 - CONCLUSION: Multifocal airspace consolidation and areas of patchy groundglass opacity most consistent with an infectious process. Significant cardiomegaly. Given the distribution of the air space opacities this is not felt to represent congestive heart failure.. Gail Mcleod MD Objective Remarks GENERAL: Morbidly obese female in no apparent distress sitting on side of bed. CARDIOVASCULAR: Regular rate and irregular rhythm. RESPIRATORY: Mildly diminished breath sounds at bases, but otherwise clear. GASTROINTESTINAL: Abdomen soft, non-tender, nondistended. MUSCULOSKELETAL: No lower extremity edema bilaterally. NEUROLOGICAL: Awake and alert. Normal speech. PSYCHIATRIC: Appropriate mood and affect; insight and judgment normal. Urinary Catheter: No Vascular Central Line Catheter: No A/P Assessment and Plan 66-year-old female presented to ED with shortness of breath and chest pain and 2 week history of productive cough. Patient's was in A. fib RVR and presentation and was treated with Cardizem drip which has now been weaned off. Patient continues to be hypoxic requiring 5 L of nasal cannula. COPD exacerbation/CAP/acute respiratory failure -Multifocal airspace consolidation and areas of patchy groundglass opacity on CT. -Sputum culture moderate growth normal respiratory stephanie -Blood cultures 2 no growth to date -Influenza negative -Pulmonology consultation appreciated. -Continue nebulizers, antibiotics, Solu-Medrol, oxygen to keep O2 sat greater than 90%. -Continue Breo -Tessalon, Robitussin AC prn cough -White blood cell count improved to 13.3. CHF, Systolic, acute on chronic. -BNP 574. Troponins negative -Most recent chest x-ray 06/28 personally interpreted with vascular congestion and cardiomegaly. -Echo with EF of 20-25%. Mild to moderately dilated ventricle with diffuse hypokinesis. Mild to moderate regurgitation through the mitral valve. Mild regurgitation through the tricuspid valve. Left atrium and right atrium are mildly dilated. -Cardiology consultation appreciated -IV Lasix decreased to 40 mg twice a day, possibly transition to po tomorrow per cardiology. -Continue Coreg and Lisinopril. -Patient declines LifeVest. -Nuclear stress test pending -Strict I's & O's A. fib RVR -Rate improved -Continue Eliquis. -Continue Coreg -Monitor telemetry Renal failure, acute on chronic -BUN increased to 54. Cr stable at 1.3 since yesterday. Likely due to heavy diuretic use -Avoid nephrotoxins -Monitor BMP DVT prophylaxis: Addis Smith Jun 29, 2016 08:52
[2016-06-29] MEDS: REMOVE OLD NICODERM (NICOTINE) PATCH TD SCH (09:00)
[2016-06-29] MEDS: FLUTICASONE 100 MCG/VILANTEROL 25 MCG INHALER INH SCH (09:53)
[2016-06-29] MEDS: DOCUSATE SODIUM 100 MG CAP PO SCH ×2 (09:54→20:10)
[2016-06-29] MEDS: NICOTINE 21 MG/24 HR PATCH TD SCH (09:54)
[2016-06-29] MEDS: APIXABAN 5 MG TABLET PO SCH ×2 (09:54→20:10)
[2016-06-29] MEDS: FAMOTIDINE 20 MG TAB PO SCH ×2 (09:54→20:11)
[2016-06-29] MEDS: POTASSIUM CHLORIDE 20 MEQ CONTROLLED RELEASE TAB PO SCH ×2 (09:54→20:10)
[2016-06-29] MEDS: LEVOFLOXACIN 750 MG PREMIX INJ 150 ML IV SCH (09:55)
[2016-06-29] MEDS: SODIUM CHLORIDE 0.9% FLUSH 5 ML FLUSH IV FLUSH SCH ×2 (09:55→20:09)
[2016-06-29] MEDS: LISINOPRIL 5 MG TAB PO SCH (09:55)
[2016-06-29] MEDS: BENZONATATE 100 MG CAP PO SCH ×3 (09:57→17:47)
[2016-06-29] MEDS: CARVEDILOL 12.5 MG TAB PO SCH ×2 (10:55→20:10)
[2016-06-29] MEDS: LORazepam 2 MG/ML VIAL IV PRN (10:55)
[2016-06-29] MEDS ORDERED: PHARMACY ORDERED LAB XX ONE (13:45)
[2016-06-29] MEDS ORDERED: OCUVTAB4 PO (15:16)
[2016-06-29] MEDS: VANCOMYCIN INJ 1,700 MG in SODIUM CHLORID 0.9% 500 ML INJ 500 ML IV SCH (16:06)
--- NOTE | 2016-06-29 19:27 | HHI.PR ---
Subjective Remarks 66 YOWF with Bilat groundglass infilt, wheezing, RF has persistant cogh no fever Breathing better weaned to 2 lnc Objective Vital Signs Vital Signs Date Time Temp Pulse Resp B/P Pulse Ox O2 Delivery O2 Flow Rate FiO2 06/29/16 18:01 88 06/29/16 18:00 96 22 141/92 90 06/29/16 17:00 86 23 138/74 91 06/29/16 16:42 86 06/29/16 16:00 90 24 136/82 94 06/29/16 15:04 94 36 101/63 93 06/29/16 14:30 86 06/29/16 14:25 90 28 116/59 94 06/29/16 13:00 97.7 84 28 104/77 94 06/29/16 12:40 98 06/29/16 12:14 90 24 113/60 91 06/29/16 12:00 90 25 98/81 92 06/29/16 10:28 102 35 104/91 96 06/29/16 10:01 124 32 150/73 94 06/29/16 10:00 85 06/29/16 08:12 106 47 117/77 94 06/29/16 08:01 92 Nasal Cannula 5.00 06/29/16 08:01 98.1 110 49 148/100 98 06/29/16 08:00 98 06/29/16 07:30 Nasal Cannula 5.00 Humidified 06/29/16 07:01 92 21 128/77 93 06/29/16 06:01 82 16 107/62 93 06/29/16 06:00 96 06/29/16 05:01 84 18 107/66 94 06/29/16 04:01 97.5 84 16 115/63 90 06/29/16 04:00 88 06/29/16 03:19 94 23 121/85 91 06/29/16 02:01 98 21 131/98 93 06/29/16 02:00 85 06/29/16 01:01 96 20 104/69 94 06/29/16 00:01 98.4 82 19 117/79 91 06/29/16 00:00 92 06/28/16 23:01 100 26 113/74 94 06/28/16 22:00 80 06/28/16 22:00 94 21 118/62 85 06/28/16 21:00 94 26 114/84 94 06/28/16 20:15 93 Nasal Cannula 5.00 06/28/16 20:00 98.4 92 20 116/59 94 06/28/16 20:00 92 06/28/16 19:47 94 19 95/62 94 I/O 06/28/16 06/28/16 06/28/16 06/29/16 06/29/16 06/29/16 07:00 15:00 23:00 07:00 15:00 23:00 Intake Total 60 ml 679 ml 30 ml 60 ml 275 ml 150 ml Output Total 1900 ml 1175 ml 875 ml 875 ml 850 ml Balance -1840 ml -496 ml -845 ml -815 ml -575 ml 150 ml Intake Oral 60 ml 325 ml 30 ml 60 ml 275 ml 150 ml IV Total 354 ml Output Urine Total 1900 ml 1175 ml 875 ml 875 ml 850 ml # Bowel Movements 0 0 0 4 0 Result Diagram: 06/29/1612 06/29/1612 Objective Remarks GENERAL: WBWN WF,mild sob SKIN: Warm and dry. HEAD: Normocephalic. EYES: No scleral icterus. No injection or drainage. NECK: Supple, trachea midline. No JVD or lymphadenopathy. CARDIOVASCULAR: Regular rate and rhythm without murmurs, gallops, or rubs. RESPIRATORY: Breath sounds equal bilaterally. No accessory muscle use. Bilat Exp rhonchi GASTROINTESTINAL: Abdomen soft, non-tender, nondistended. MUSCULOSKELETAL: No cyanosis, or edema. BACK: Nontender without obvious deformity. No CVA tenderness. A/P Assessment and Plan Hypoxic RF COPD Exac Bilat infilt AF CHF SHAMEKA PLAN: Aerosol nebs IV Solumedrol Cont Abx Robitussin AC cough syp Tessalon 200 mg tid 02 to keep sat >90% Nuclear stress test will FU in AM Aquilino Rodriguez MD Jun 29, 2016 19:27
[2016-06-29] MEDS: FUROSEMIDE 40 MG/4 ML VIAL IV PUSH SCH (20:10)
[2016-06-30] VITALS (26 sets, daily range): BP systolic 94–147; BP diastolic 48–79; PULSE 80–108; RESP 16–42; TEMP 97.7–98; O2SAT 87–96
[2016-06-30] MEDS: INSULIN NovoLIN REGULAR SUPPLEMENTAL SCALE SQ SCH ×6 (04:00→20:00)
[2016-06-30] MEDS: methylPREDNISolone SOD SUCC 40 MG/1 ML VIAL IV PUSH SCH ×3 (04:35→21:43)
[2016-06-30] MEDS: CHLORHEXIDINE GLUCONATE 2 % 1 PACK (2 CLOTHS) TOP SCH (04:39)
[2016-06-30 05:56] LABS: POTASSIUM 4.2 MEQ/L (3.5-5.1)
[2016-06-30 05:58] LABS: BICARBONATE 34.4 MEQ/L (21.0-32.0)
[2016-06-30 06:11] LABS: HEMATOCRIT 39.6 % (35.0-46.0); MEAN CELL VOLUME 81.7 FL (80.0-100.0); MEAN CORPUSCULAR HEMOGLOBIN 27.5 PG (27.0-34.0); MEAN CORPUSCULAR HGB CONC 33.7 % (32.0-36.0); PLATELET COUNT 270 TH/MM3 (150-450); RED BLOOD COUNT 4.85 MIL/MM3 (4.00-5.30); RED CELL DISTRIBUTION WIDTH 13.8 % (11.6-17.2); REVIEW FLAG FINAL; WHITE BLOOD COUNT 15.4 TH/MM3 (4.0-11.0)
[2016-06-30] MEDS: RESP: IPRATROPIUM 0.5 MG/2.5 ML NEB NEB PRN (07:37)
--- NOTE | 2016-06-30 08:41 | PD.CARD.PN ---
Subjective Subjective Remarks Pt feels well, some coughing, but no sob; better rates on tele. Objective Medications Administered Medications Medications (Trade) Dose Ordered Sig/Melina Route PRN Reason Start Time Stop Time Status Last Admin Dose Admin IV Flush (NS Flush) 2 ml UNSCH PRN IV FLUSH FLUSH AFTER USING IV ACCESS 06/26/16 13:00 06/28/16 20:15 IV Flush (NS Flush) 2 ml BID IV FLUSH 06/26/16 21:00 06/29/16 20:09 Docusate Sodium (Colace) 100 mg BID PO 06/26/16 21:00 06/29/16 20:10 Bisacodyl (Dulcolax Supp) 10 mg DAILY PRN RECTAL CONSTIPATION 06/26/16 13:00 06/29/16 01:44 Miscellaneous Information 1 Q361D XX 06/26/16 13:00 06/26/16 13:00 Chlorhexidine Gluconate (Chlorhexidine 2% Cloth) 3 pack Taper DAILY@04 TOP 06/27/16 04:00 06/23/17 03:59 06/30/16 04:39 Fluticasone/ Vilanterol (Breo Ellipta 100-25 Inh) 1 puff DAILY INH 06/27/16 09:00 06/29/16 09:53 Furosemide (Lasix) 80 mg DAILY@ PO 06/26/16 18:00 Hold 06/27/16 08:59 Lisinopril (Prinivil) 5 mg DAILY PO 06/27/16 09:00 06/29/16 09:55 Potassium Chloride 20 meq 20 meq BID PO 06/26/16 21:00 06/29/16 20:10 Vancomycin HCl/ Sodium Chloride (Vancomycin Inj/ NS 500 ml Inj) 517 ml @ 250 mls/hr DAILY@14 IV 06/27/16 14:00 06/29/16 16:06 Lorazepam 0.5 mg 0.5 mg Q4H PRN IV AGITATION/RESTLESSNESS/ANXIETY 06/26/16 21:15 06/29/16 10:55 Levofloxacin/ Dextrose (Levaquin 750 Mg Premix Inj) 150 ml @ 100 mls/hr Q48H IV 06/29/16 09:00 06/29/16 09:55 Insulin Human Regular (NovoLIN R SUPPLEMENTAL SCALE) 1 Q4HR SQ 06/27/16 12:00 06/29/16 20:09 Nicotine (Habitrol 21 Mg Patch.24 Hr) 1 patch DAILY TD 06/27/16 10:45 06/29/16 09:54 Miscellaneous Information 1 DAILY TD 06/28/16 09:00 06/29/16 09:00 Methylprednisolone Sodium Succinate (SoluMEDROL INJ) 40 mg Q8H IV PUSH 06/28/16 03:00 06/30/16 04:35 Famotidine (Pepcid) 20 mg BID PO 06/28/16 09:00 06/29/16 20:11 Apixaban (Eliquis) 5 mg BID PO 06/28/16 21:00 06/29/16 20:10 Guaifenesin/ Codeine Phosphate (Robitussin Ac 200-20 Mg/10 ml Liq) 10 ml Q6H PRN PO cough 06/28/16 18:45 06/29/16 23:01 Benzonatate (Tessalon) 200 mg TID PO 06/29/16 09:00 06/29/16 17:47 Furosemide (Lasix Inj) 40 mg BID IV PUSH 06/29/16 21:00 06/29/16 20:10 Carvedilol (Coreg) 25 mg Q12HR PO 06/29/16 09:00 06/29/16 20:10 Vital Signs / I&O Vital Signs Date Time Temp Pulse Resp B/P Pulse Ox O2 Delivery O2 Flow Rate FiO2 06/30/16 07:41 89 Nasal Cannula 3.00 06/30/16 07:00 90 Nasal Cannula 2.00 06/30/16 06:00 88 06/30/16 06:00 86 17 99/63 93 06/30/16 05:00 80 16 102/66 92 06/30/16 04:00 97.7 84 19 147/63 87 06/30/16 04:00 90 06/30/16 03:00 82 19 99/66 96 06/30/16 02:00 91 06/30/16 01:00 82 18 114/60 95 06/30/16 00:06 97.8 100 42 95/48 92 06/30/16 00:00 100 06/29/16 23:00 92 32 128/78 90 06/29/16 22:00 122 36 139/97 91 06/29/16 22:00 107 06/29/16 21:00 102 25 137/78 92 06/29/16 20:00 98.5 100 29 149/80 92 06/29/16 20:00 98 06/29/16 19:40 94 Nasal Cannula 3.00 06/29/16 19:00 91 Nasal Cannula 2.00 06/29/16 19:00 100 25 140/90 93 06/29/16 18:01 88 06/29/16 18:00 96 22 141/92 90 06/29/16 17:00 86 23 138/74 91 06/29/16 16:42 86 06/29/16 16:00 90 24 136/82 94 06/29/16 15:04 94 36 101/63 93 06/29/16 14:30 86 06/29/16 14:25 90 28 116/59 94 06/29/16 13:00 97.7 84 28 104/77 94 06/29/16 12:40 98 06/29/16 12:14 90 24 113/60 91 06/29/16 12:00 90 25 98/81 92 06/29/16 10:28 102 35 104/91 96 06/29/16 10:01 124 32 150/73 94 06/29/16 10:00 85 I/O 06/29/16 06/29/16 06/29/16 06/30/16 06/30/16 06/30/16 07:00 15:00 23:00 07:00 15:00 23:00 Intake Total 60 ml 275 ml 710 ml 0 ml Output Total 875 ml 850 ml 1250 ml 650 ml Balance -815 ml -575 ml -540 ml -650 ml Intake Oral 60 ml 275 ml 210 ml 0 ml IV Total 500 ml Output Urine Total 875 ml 850 ml 1250 ml 650 ml # Bowel Movements 4 0 1 1 Physical Exam GENERAL: This is an obese pt, no distress CARDIOVASCULAR:irregularly irregular, regular rate RESPIRATORY: decreased breath sounds, wheezes GASTROINTESTINAL: Abdomen soft, non-tender, nondistended. Normal active bowel sounds MUSCULOSKELETAL: 1+ LE edema NEURO: Alert & Oriented x4 to person, place, time, situation. Moves all ext x4 Laboratory Laboratory Tests Test 06/29/16 06/30/16 15:27 04:50 Vancomycin Level Trough 16.9 MCG/ML White Blood Count 15.4 TH/MM3 Red Blood Count 4.85 MIL/MM3 Hemoglobin 13.4 GM/DL Hematocrit 39.6 % Mean Corpuscular Volume 81.7 FL Mean Corpuscular Hemoglobin 27.5 PG Mean Corpuscular Hemoglobin 33.7 % Concent Red Cell Distribution Width 13.8 % Platelet Count 270 TH/MM3 Mean Platelet Volume 9.0 FL Sodium Level 146 MEQ/L Potassium Level 4.2 MEQ/L Chloride Level 105 MEQ/L Carbon Dioxide Level 34.4 MEQ/L Anion Gap 7 MEQ/L Blood Urea Nitrogen 54 MG/DL Creatinine 1.20 MG/DL Estimat Glomerular Filtration 45 ML/MIN Rate Random Glucose 105 MG/DL Calcium Level 8.3 MG/DL Imaging Last Impressions Chest X-Ray 06/28/16 0600 Signed Impressions: Service Date/Time: Tuesday, June 28, 2016 06:21 - CONCLUSION: 1. Cardiomegaly and findings of congestive heart failure. There has been no significant change when compared to the prior exam. Davon Cuba MD Chest CT 06/27/161957 Signed Impressions: Service Date/Time: Monday, June 27, 2016 09:52 - CONCLUSION: Multifocal airspace consolidation and areas of patchy groundglass opacity most consistent with an infectious process. Significant cardiomegaly. Given the distribution of the air space opacities this is not felt to represent congestive heart failure.. Gail Mcleod MD Assessment and Plan Problem List: (1) Cardiomyopathy Assessment and Plan: LVEF 20-25%, perhaps NICM due to uncontrolled afib, nuc stress pending; on oscar/bb, she declines Life-vest. (2) Atrial fibrillation with RVR Assessment and Plan: on eliquis, good rates currently. (3) Systolic CHF, acute on chronic Assessment and Plan: on PO lasix, seems fairly compensated. (4) COPD exacerbation Assessment and Plan: per medical team (5) Tobacco abuse counseling Assessment and Plan: counseled at length Rene Bonilla MD Jun 30, 2016 08:41
[2016-06-30] MEDS: REMOVE OLD NICODERM (NICOTINE) PATCH TD SCH (09:00)
[2016-06-30] MEDS: DOCUSATE SODIUM 100 MG CAP PO SCH ×2 (09:00→21:46)
[2016-06-30] MEDS ORDERED: REGADENOSON INJ 0.4 MG/5 ML SYR IV ONE (09:36)
--- NOTE | 2016-06-30 10:07 | RADHPO ---
EXAM DATE/TIME: 06/29/2016 12:03 [facility] COMPARISON: CT THORAX W/O CONTRAST, June 27, 2016, 9:52. INDICATIONS : Shortness of breath with chest pressure for one day. Atrial fibrillation. DOSE: 30.1 mCi Tc99m Myoview at stress. 30.0 mCi Tc99m Myoview at rest. 0.4 mg Lexiscan STRESS SYMPTOMS: Shortness of breath. EJECTION FRACTION: 28% MEDICAL HISTORY : Hypertension. Congestive heart failure. SURGICAL HISTORY : None. ENCOUNTER: Initial ACUITY: 1 day PAIN SCALE: 1/10 LOCATION: chest TECHNIQUE: The patient underwent pharmacologic stress with infusion of prescribed dose. Continuous ECG tracing was monitored during stress. Gated SPECT imaging was performed after stress and conventional SPECT i maging was performed at rest. The examination was performed on a SPECT/CT scanner, both attenuation and non-corrected datasets were reviewed. FINDINGS: The ejection fraction is 28% the dilated ventricular cavity and global hypokinesis. The best perfuse d myocardium is the septum and inferior wall. Moderate gut activity does obscure the inferior wall. There is no redistribution suggest ischemia. CONCLUSION: Depressed ejection fraction without stress-induced ischemia. RISK CATEGORY: High (>3% Annual Mortality Rate) Zac Freitas MD FACR on June 30, 2016 at 10:00 Board Certified Radiologist. This report was verified electronically.
[2016-06-30] MEDS: NICOTINE 21 MG/24 HR PATCH TD SCH (10:08)
[2016-06-30] MEDS: FAMOTIDINE 20 MG TAB PO SCH ×2 (10:10→21:46)
[2016-06-30] MEDS: CARVEDILOL 12.5 MG TAB PO SCH ×2 (10:10→21:46)
[2016-06-30] MEDS: LISINOPRIL 5 MG TAB PO SCH (10:10)
[2016-06-30] MEDS: POTASSIUM CHLORIDE 20 MEQ CONTROLLED RELEASE TAB PO SCH ×2 (10:10→21:46)
[2016-06-30] MEDS: FUROSEMIDE 40 MG/4 ML VIAL IV PUSH SCH ×2 (10:11→21:45)
[2016-06-30] MEDS: SODIUM CHLORIDE 0.9% FLUSH 5 ML FLUSH IV FLUSH SCH ×2 (10:11→21:43)
[2016-06-30] MEDS: FLUTICASONE 100 MCG/VILANTEROL 25 MCG INHALER INH SCH (10:12)
[2016-06-30] MEDS: APIXABAN 5 MG TABLET PO SCH ×2 (10:12→21:47)
[2016-06-30] MEDS: BENZONATATE 100 MG CAP PO SCH ×3 (10:54→17:49)
[2016-06-30] MEDS: VANCOMYCIN INJ 1,700 MG in SODIUM CHLORID 0.9% 500 ML INJ 500 ML IV SCH (14:50)
[2016-07-01] VITALS (18 sets, daily range): BP systolic 81–141; BP diastolic 55–90; PULSE 72–92; RESP 16–37; TEMP 85–98.6; O2SAT 88–95
[2016-07-01] MEDS: INSULIN NovoLIN REGULAR SUPPLEMENTAL SCALE SQ SCH ×5 (01:31→16:00)
[2016-07-01] MEDS: CHLORHEXIDINE GLUCONATE 2 % 1 PACK (2 CLOTHS) TOP SCH (04:00)
[2016-07-01 04:43] LABS: HEMATOCRIT 42.5 % (35.0-46.0); MEAN CELL VOLUME 82.8 FL (80.0-100.0); MEAN CORPUSCULAR HEMOGLOBIN 26.7 PG (27.0-34.0); MEAN CORPUSCULAR HGB CONC 32.3 % (32.0-36.0); PLATELET COUNT 284 TH/MM3 (150-450); RED BLOOD COUNT 5.13 MIL/MM3 (4.00-5.30); RED CELL DISTRIBUTION WIDTH 14.5 % (11.6-17.2); REVIEW FLAG FINAL; WHITE BLOOD COUNT 13.8 TH/MM3 (4.0-11.0)
[2016-07-01 04:50] LABS: POTASSIUM 4.5 MEQ/L (3.5-5.1)
[2016-07-01 04:56] LABS: BICARBONATE 36.6 MEQ/L (21.0-32.0)
[2016-07-01] MEDS ORDERED: methylPREDNISolone SOD SUCC 40 MG/1 ML VIAL IV PUSH SCH (06:00)
[2016-07-01] MEDS: SODIUM CHLORIDE 0.9% FLUSH 5 ML FLUSH IV FLUSH PRN (06:03)
[2016-07-01] MEDS: FLUTICASONE 100 MCG/VILANTEROL 25 MCG INHALER INH SCH (08:32)
[2016-07-01] MEDS: LEVOFLOXACIN 750 MG PREMIX INJ 150 ML IV SCH (08:33)
[2016-07-01] MEDS: SODIUM CHLORIDE 0.9% FLUSH 5 ML FLUSH IV FLUSH SCH (08:33)
[2016-07-01] MEDS: FUROSEMIDE 40 MG/4 ML VIAL IV PUSH SCH (08:34)
[2016-07-01] MEDS: REMOVE OLD NICODERM (NICOTINE) PATCH TD SCH (08:34)
[2016-07-01] MEDS: FAMOTIDINE 20 MG TAB PO SCH (08:35)
[2016-07-01] MEDS: DOCUSATE SODIUM 100 MG CAP PO SCH (08:35)
[2016-07-01] MEDS: APIXABAN 5 MG TABLET PO SCH (08:35)
[2016-07-01] MEDS: NICOTINE 21 MG/24 HR PATCH TD SCH (08:35)
[2016-07-01] MEDS: POTASSIUM CHLORIDE 20 MEQ CONTROLLED RELEASE TAB PO SCH (08:35)
[2016-07-01] MEDS: BENZONATATE 100 MG CAP PO SCH ×2 (08:35→13:00)
[2016-07-01] MEDS: LISINOPRIL 5 MG TAB PO SCH (08:35)
[2016-07-01] MEDS: CARVEDILOL 12.5 MG TAB PO SCH (08:35)
--- NOTE | 2016-07-01 11:34 | HHI.PR ---
Subjective Remarks Patient seen and examined today with Dr. Jimenez. Patient states that she is feeling much better. Less wheezing than she has been. Patient very eager to go home and plans a going home today. Objective Vitals Vital Signs Date Time Temp Pulse Resp B/P Pulse Ox O2 Delivery O2 Flow Rate FiO2 07/01/16 07:00 92 Nasal Cannula 4.00 07/01/16 06:00 82 20 101/58 91 07/01/16 06:00 72 07/01/16 05:00 90 23 131/77 93 07/01/16 04:00 84 07/01/16 04:00 97.8 84 18 133/68 92 07/01/16 03:00 92 Nasal Cannula 4.00 07/01/16 03:00 84 18 109/77 95 07/01/16 02:00 84 16 113/81 88 07/01/16 02:00 84 07/01/16 01:00 80 20 103/71 92 07/01/16 00:00 78 07/01/16 00:00 98.2 82 18 124/87 92 07/01/16 00:00 87 Venturi Mask 7.00 40 06/30/16 23:00 84 18 103/69 92 06/30/16 23:00 87 Nasal Cannula 4.00 06/30/16 22:00 84 06/30/16 22:00 88 21 108/54 94 06/30/16 21:01 100 27 109/64 92 06/30/16 20:13 93 Nasal Cannula 3.00 06/30/16 20:09 102 22 117/69 94 06/30/16 20:00 94 06/30/16 20:00 90 Nasal Cannula 2.00 06/30/16 19:36 98.0 92 23 94/56 93 06/30/16 18:00 86 19 113/65 93 06/30/16 18:00 90 06/30/16 17:00 98 27 114/62 90 06/30/16 16:00 98.0 96 24 103/61 89 06/30/16 16:00 96 06/30/16 15:00 90 32 104/77 92 06/30/16 14:00 100 35 128/79 93 06/30/16 14:00 86 06/30/16 12:00 97.7 98 34 108/76 90 06/30/16 12:00 92 I/O 06/30/16 06/30/16 06/30/16 07/01/16 07/01/16 07/01/16 07:00 15:00 23:00 07:00 15:00 23:00 Intake Total 0 ml 240 ml 400 ml 100 ml Output Total 650 ml 1500 ml 600 ml 2150 ml Balance -650 ml -1260 ml -200 ml -2050 ml Intake Oral 0 ml 240 ml 400 ml 100 ml IV Total 0 ml Output Urine Total 650 ml 1500 ml 600 ml 2150 ml # Bowel Movements 1 0 0 0 Result Diagram: 07/01/1641907/01/16419 Objective Remarks GENERAL: Well-developed, well-nourished, in no acute distress. alert and orientated HEENT: Head is normocephalic without any lesions or masses noted. Facial features are symmetric. Eyes: Extraocular muscles are intact. Conjunctivae were clear. NECK: Supple without any masses. Trachea midline no deviation. No JVD, CARDIAC: Regular rhythm, regular rate. S1/S2 are heard. No murmurs gallops or rubs. LUNGS: Minimal expiratory wheeze noted bilaterally. No rhonchi or rales. No use of accessory muscles on inspiration or expiration. ABDOMEN: Soft, nontender. Nondistended. Bowel sounds heard in all 4 quadrants. No organomegaly or masses. Negative rebound, negative guarding EXTREMITIES: No edema, pulses are equal bilaterally. No cyanosis or clubbing NEUROLOGY: Mood and affect appear appropriate. Cranial nerves II through XII grossly intact moving all extremities, speech is clear Urinary Catheter: No Vascular Central Line Catheter: No A/P Assessment and Plan COPD exacerbation/CAP/acute respiratory failure -Multifocal airspace consolidation and areas of patchy groundglass opacity on CT. -Sputum culture moderate growth normal respiratory stephanie -Blood cultures 2 no growth to date -Influenza negative -Pulmonology following the patient, will arrange for appropriate follow-up -Continue nebulizers, antibiotics, Solu-Medrol, oxygen to keep O2 sat greater than 90%. -Continue Breo -Tessalon, Robitussin AC prn cough -Home oxygen walk test was performed which did not indicate need for home oxygen Congestive heart failure, Systolic, acute on chronic. -BNP 574. Troponins negative -Most recent chest x-ray 1/14 with vascular congestion and cardiomegaly. -Echo with EF of 20-25%. Mild to moderately dilated ventricle with diffuse hypokinesis. Mild to moderate regurgitation through the mitral valve. Mild regurgitation through the tricuspid valve. Left atrium and right atrium are mildly dilated. -Cardiology following the patient -IV Lasix decreased to 40 mg twice a day, changed to by mouth -Continue Coreg and Lisinopril. -Patient declines LifeVest. -Nuclear stress test indicates depressed ejection fraction without stress- induced ischemia, high risk -Strict I's & O's A. fib RVR -Rate controlled -Continue Eliquis. -Continue Coreg -Monitor telemetry Renal failure, acute on chronic -Renal function continued to improve -Avoid nephrotoxins -Monitor BMP Hyperlipidemia LDL 123 Start Lipitor 10 mg daily DVT prophylaxis: Eliquis Written by Jed Blount PA-C, acting as scribe for Dr. Jimenez on 07/01/16 at 1145. The documentation accurately reflects the work and decisions performed face-to- face by Dr. Jimenez on 07/01/16 at 1145. Discharge Planning Discharge home was stable condition Jed Blount Jul 01, 2016 11:34
--- NOTE | 2016-07-01 11:36 | HHI.DCPOC ---
Discharge Care Plan Diagnosis: (1) Systolic CHF, acute on chronic (2) COPD exacerbation (3) Atrial fibrillation with RVR Goals to Promote Your Health * To prevent worsening of your condition and complications * To maintain your health at the optimal level Directions to Meet Your Goals Take your medications as prescribed Follow your dietary instruction Follow activity as directed Keep your appointments as scheduled Take your immunizations and boosters as scheduled If your symptoms worsen call your PCP, if no PCP go to Urgent Care Center or Emergency Room Smoking is Dangerous to Your Health. Avoid second hand smoke Call the 24-hour hour crisis hotline for domestic abuse at Jed Blount Jul 01, 2016 11:36
[2016-07-01] MEDS ORDERED: FAMO20TA2 PO (11:45)
[2016-07-01] MEDS ORDERED: APIX5TAB PO (11:45)
[2016-07-01] MEDS ORDERED: PRED10PA2 PO (11:45)
[2016-07-01] MEDS ORDERED: LEVA750T PO (11:45)
[2016-07-01] MEDS ORDERED: FURO1TAB60 PO (11:45)
[2016-07-01] MEDS ORDERED: CARV12.5 PO (11:45)
--- NOTE | 2016-07-01 12:24 | HHI.DS ---
Discharge Summary Admission Date Jun 26, 2016 at 11:43 Discharge Date: Jul 01, 2016 Admitting Diagnosis pneumonia, A. fib RVR (1) COPD exacerbation ICD Code: J44.1 (2) Atrial fibrillation with RVR ICD Code: I48.91 Procedures None Brief History - From Admission This is a 66-year-old woman super morbidly obese female that presented to the ED with dyspnea and angina. Per ED report, the patient been feeling ill for several weeks.Her symptomatology worsened which she described as worsening cough , productive of green phlegm, chills, trouble breathing, and chest tightness. She has a history of COPD, CHF, A. fib. . The patient is an active smoker. She still smokes. In the ED, imaging and laboratory studies were obtained. The patient was noted to be in A. fib RVR,HR 180's a Cardizem infusion was initiated , imaging studies revealed pulmonary edema versus pneumonia process, Lasix was given. The patient was placed on BiPAP, O2 sat ranging 92-95%. Critical care medicine is consulted for treatment and management. History (Limited) History Past Medical History Narrative Medical COPD CHF A. fib Tobacco use Social History Alcohol Use: Yes (1-2 TIMES PER WEEK) Tobacco Use: Yes (1 PPD) Allergies-Medications Allergies-Medications (Allergen,Severity, Reaction): Coded Allergies: Augmentin (Verified Allergy, Severe, Anaphylaxis, 06/26/16) Keflex (Verified Allergy, Severe, Anaphylaxis, 06/26/16) Sulfa (Verified Allergy, Severe, Anaphylaxis, 06/26/16) Reported Meds & Prescriptions Reported Meds & Active Scripts Active Reported Azithromycin 250 Mg Tab 250 Mg PO DAILY Breo Ellipta Inh (Fluticasone/Vilanterol) 100-25 Mcg/Act Inh 1 Puff INH DAILY Use daily at the same time. Benzonatate 200 Mg Cap 200 Mg PO BID PRN Aspirin 325 Mg Tab 325 Mg PO DAILY Diltiazem (Diltiazem HCl) 30 Mg Tab 30 Mg PO TID Lasix (Furosemide) 80 Mg Tab 80 Mg PO BID [areds ] 2 Tab PO DAILY Medrol Dosepak (Methylprednisolone) 4 Mg Dspk 4 Mg PO DIRECTED Per Pharmacist direction Metoprolol Tartrate 25 Mg Tab 25 Mg PO BID Potassium Chloride ER (Potassium Chloride) 20 Meq Tab 20 Meq PO BID Lisinopril 5 Mg Tab 5 Mg PO DAILY ROS Review of Systems ROS Limitations: Clinical Condition CBC/BMP: 07/01/16 0420 07/01/16 0420 Significant Findings Laboratory Tests Test 06/29/16 06/29/16 06/30/16 07/01/16 06:12 15:27 04:50 04:20 White Blood Count 13.3 TH/MM3 15.4 TH/MM3 13.8 TH/MM3 (4.0-11.0) (4.0-11.0) (4.0-11.0) Mean Corpuscular Hemoglobin 26.9 PG 26.7 PG (27.0-34.0) (27.0-34.0) Carbon Dioxide Level 34.8 MEQ/L 34.4 MEQ/L 36.6 MEQ/L (21.0-32.0) (21.0-32.0) (21.0-32.0) Blood Urea Nitrogen 54 MG/DL (7-18) 54 MG/DL (7-18) 48 MG/DL (7-18) Creatinine 1.30 MG/DL 1.20 MG/DL 1.20 MG/DL (0.50-1.00) (0.50-1.00) (0.50-1.00) Estimat Glomerular Filtration 41 ML/MIN (>89) 45 ML/MIN (>89) 45 ML/MIN (>89) Rate Random Glucose 157 MG/DL 204 MG/DL (74-106) (74-106) Vancomycin Level Trough 16.9 MCG/ML (5.0-10.0) Sodium Level 146 MEQ/L (136-145) Calcium Level 8.3 MG/DL 8.4 MG/DL (8.5-10.1) (8.5-10.1) Imaging Last Impressions Myocardial Perfusion Scan Nuc Med 06/29/16 0000 Signed Impressions: Service Date/Time: Wednesday, June 29, 2016 12:03 - CONCLUSION: Depressed ejection fraction without stress-induced ischemia. RISK CATEGORY: High (>3%% Annual Mortality Rate) Zac Freitas MD FACR Chest X-Ray 1/14/17 0600 Signed Impressions: Service Date/Time: Tuesday, June 28, 2016 06:21 - CONCLUSION: 1. Cardiomegaly and findings of congestive heart failure. There has been no significant change when compared to the prior exam. Davon Cuba MD Chest CT 06/27/168 Signed Impressions: Service Date/Time: Monday, June 27, 2016 09:52 - CONCLUSION: Multifocal airspace consolidation and areas of patchy groundglass opacity most consistent with an infectious process. Significant cardiomegaly. Given the distribution of the air space opacities this is not felt to represent congestive heart failure.. Gail Mcleod MD PE at Discharge GENERAL: Well-developed, well-nourished, in no acute distress. alert and orientated HEENT: Head is normocephalic without any lesions or masses noted. Facial features are symmetric. Eyes: Extraocular muscles are intact. Conjunctivae were clear. NECK: Supple without any masses. Trachea midline no deviation. No JVD, CARDIAC: Regular rhythm, regular rate. S1/S2 are heard. No murmurs gallops or rubs. LUNGS: Minimal expiratory wheeze noted bilaterally. No rhonchi or rales. No use of accessory muscles on inspiration or expiration. ABDOMEN: Soft, nontender. Nondistended. Bowel sounds heard in all 4 quadrants. No organomegaly or masses. Negative rebound, negative guarding EXTREMITIES: No edema, pulses are equal bilaterally. No cyanosis or clubbing NEUROLOGY: Mood and affect appear appropriate. Cranial nerves II through XII grossly intact moving all extremities, speech is clear Hospital Course 66-year-old female with known history of chronic objective pulmonary disease, chronic systolic congestive heart failure, atrial fibrillation who presented to hospital because of cough with green phlegm production. Trouble breathing, and chest tightness. Patient was found to have acute respiratory failure secondary to congestive heart failure and COPD exacerbations. Patient was admitted to the hospital in the ICU for management by the critical care team. Patient initially had heart rate 180s and was started on Cardizem IV. Patient's heart rate did improve. Cardiology consultation was requested in which crossing tender follow the patient. Patient has been changed to Coreg 25 mg twice daily. Patient's heart rate has been controlled. Patient with congestive heart failure. Patient was started on IV diuresis with 80 mg IV every 12 hours. Patient tolerated diuresing well. Patient had 11 L output. Had a weight loss of 9 kg. Patient with chronic obstructive pulmonary disease. Patient started on duo nebs, oxygen supplementation, incentive spirometry. Pulmonary was consulted for recommendations. Patient was on Solu-Medrol which has been weaned down to by mouth prednisone. Patient is doing well. She has had improvement with her condition throughout her stay in the hospital. At the time evaluating the patient today she is very eager to go home. States that her breathing is much improved. Walk study was performed which did not indicate any need for home oxygen. When notified her that we could discharge her home today she yelled out in glee. Will plan discharge accordingly with appropriate outpatient follow-up. Pt Condition on Discharge: Stable Discharge Disposition: Discharge Home Discharge Time: > 30 minutes Discharge Instructions DIET: Follow Instructions for: Heart Healthy Diet Activities you can perform: Regular-No Restrictions Activities to Avoid: Driving for 24 hrs Follow up Referrals: Cardiology - 2 Weeks with Rene Bonilla MD PCP Follow-up - 1 Week Pulmonology - 2 Weeks with Aquilino Rodriguez MD New Medications: Levofloxacin (Levaquin) 750 Mg Tab 750 MG PO DAILY Infection Days 5 Ref 0 TAB Prednisone (48) 10 mg tab Dose Pack (Prednisone (48) 10 mg tab Dose Pack) 10 Mg Dspk 10 MG PO DIRECTED Inflammation #1 Ref 0 DSPK Apixaban (Eliquis) 5 Mg Tab 5 MG PO BID atrial fibrillation Days 30 TAB Carvedilol (Coreg) 12.5 Mg Tab 25 MG PO Q12HR cardiomyopathy Days 30 TAB Famotidine (Famotidine) 20 Mg Tab 20 MG PO BID GI protection Days 30 TAB Furosemide (Lasix) 40 Mg Tab 40 MG PO BID@,18 congestive heart failure Days 30 TAB Continued Medications: Aspirin (Aspirin) 325 Mg Tab 325 MG PO DAILY #30 Ref 0 TAB Benzonatate (Benzonatate) 200 Mg Cap 200 MG PO BID PRN COUGH Ref 0 CAP Fluticasone-Vilanterol Inh (Breo Ellipta Inh) 100-25 Mcg/Act Inh 1 PUFF INH DAILY Use daily at the same time. #1 Ref 0 INHALER Lisinopril (Lisinopril) 5 Mg Tab 5 MG PO DAILY Blood Pressure Management #30 Ref 0 TAB Multiple Vitamins W/ Minerals (Preservision Areds) 1 Tab 2 TAB PO DAILY Nutritional Supplement Ref 0 TAB Potassium Chloride ER (Potassium Chloride ER) 20 Meq Tab 20 MEQ PO BID Electrolyte Replacement #60 Ref 0 TAB Discontinued Medications: Azithromycin (Azithromycin) 250 Mg Tab 250 MG PO DAILY Infection Ref 0 TAB Diltiazem (Diltiazem) 30 Mg Tab 30 MG PO TID Angina #120 Ref 0 TAB Furosemide (Lasix) 80 Mg Tab 80 MG PO BID #60 Ref 0 TAB Methylprednisolone Dosepak (Medrol Dosepak) 4 Mg Dspk 4 MG PO DIRECTED Per Pharmacist direction #1 Ref 0 DSPK Metoprolol Tartrate (Metoprolol Tartrate) 25 Mg Tab 25 MG PO BID #60 Ref 0 TAB Additional Information Written by Jed Blount PA-C, acting as scribe for Dr. Jimenez on 07/01/16 at 1145. The documentation accurately reflects the work and decisions performed face-to- face by Dr. Jimenez on 07/01/16 at 1145. Jed Blount Jul 01, 2016 12:24 Angy Jimenez MD Jul 01, 2016 12:46
[2016-07-01] MEDS ORDERED: LIPI10TA PO (12:25)
[2016-07-01] MEDS: VANCOMYCIN INJ 1,700 MG in SODIUM CHLORID 0.9% 500 ML INJ 500 ML IV SCH (14:43)
[2016-07-01] MEDS ORDERED: FUROSEMIDE 40 MG TAB PO SCH (18:00)
[2016-07-01] MEDS ORDERED: FAMOTIDINE 20 MG TAB PO SCH (21:00)
[2016-07-01] MEDS ORDERED: predniSONE 20 MG TAB PO SCH (21:00)
[2016-07-01] MEDS ORDERED: ATORVASTATIN 10 MG TAB PO SCH (21:00)
== END 2016-07-01 17:55 | disposition home or self-care (01) | DRG 291 ==
LOC: PHED 10:00 → PHEDA 11:43 → PHICU 12:50
PROVIDERS: ADMIT Family Medicine; ATTEND Family Medicine
PROC: 5A09557 Assistance with Respiratory Ventilation, Greater than 96 Consecutive Hours, Continuous Positive Airway Pressure (ICD-10-PCS; principal; 2016-06-26)
DX: I50.23 Acute on chronic systolic (congestive) heart failure (principal); J18.9 Pneumonia, unspecified organism; J96.01 Acute respiratory failure with hypoxia; N17.9 Acute kidney failure, unspecified; J96.02 Acute respiratory failure with hypercapnia; I42.9 Cardiomyopathy, unspecified; I48.2 Chronic atrial fibrillation; J44.1 Chronic obstructive pulmonary disease with (acute) exacerbation; E66.01 Morbid (severe) obesity due to excess calories; F17.210 Nicotine dependence, cigarettes, uncomplicated; Z88.1 Allergy status to other antibiotic agents; Z88.2 Allergy status to sulfonamides; Z79.82 Long term (current) use of aspirin; G47.33 Obstructive sleep apnea (adult) (pediatric); M54.9 Dorsalgia, unspecified; G89.29 Other chronic pain; E78.5 Hyperlipidemia, unspecified; Z91.19 Patient's noncompliance with other medical treatment and regimen; Z87.01 Personal history of pneumonia (recurrent); N18.9 Chronic kidney disease, unspecified; I12.9 Hypertensive chronic kidney disease with stage 1 through stage 4 chronic kidney disease, or unspecified chronic kidney disease; I34.0 Nonrheumatic mitral (valve) insufficiency
CPT/HCPCS: 36600; 71010; 71250; 78452; 80048; 80053; 80061; 80202; 81001; 82805; 82948; 83605; 83735; 83880; 84100; 84443; 84484; 85007; 85025; 85027; 85610; 85730; 87040; 87070; 87205; 87449; 87641; 87804; 93005; 93017; 93306; 94002; 94003; 94150; 94620; 94640; 94664; 94667; 94668; 96365; 96375; 96376; A9502; C9113; J0282; J1160; J1644; J1650; J1815; J1940; J1956; J2060; J2785; J2920; J2930; J3370; J3475; J7040; J7050; J7060; J7644

== ENCOUNTER 2017-06-19 12:38 | Inpatient (IN) | payer OTHER, MEDICARE ==
[2017-06-19] VITALS (23 sets, daily range): BP systolic 89–156; BP diastolic 47–96; PULSE 84–151; RESP 18–46; TEMP 97.9–98.9; O2SAT 89–97
[~2017-06-19] VITALS: Ht 162.6 cm; Wt 126.0 kg
[~2017-06-19 12:38] MED LIST changes: +APIX5TAB PO; +ASPI-183 PO; -ASPI325T10 OR; -ATRO17AE INH; +BENZ1CAP51 PO; +CARV12.5 PO; -DIGO0.25 PO; -DILT31TA PO; +FAMO20TA2 PO; +FLUT1INH INH; +FURO1TAB60 PO; -GLUCTAB PO; -LASI80TA PO; +LEVA750T PO; +LIPI10TA PO; +LISI-519 PO; -METO50TA PO; +OCUVTAB4 PO; +POTA-163 PO; -POTA-243 PO; +PRED10PA2 PO; -PRED20 PO; -TAB-TAB PO
[2017-06-19] MEDS ORDERED: FENO160T PO (12:51)
[2017-06-19] MEDS ORDERED: FURO40TA PO (12:51)
[2017-06-19] MEDS ORDERED: VENL37.5 PO (12:51)
[2017-06-19] MEDS ORDERED: LISI40TA PO (12:51)
--- NOTE | 2017-06-19 12:59 | PD ---
HPI Chief Complaint: Cardiac Complaint Time Seen by Provider: 12:47 Travel History International Travel<30 days: No Contact w/Intl Traveler<30days: No Traveled to known affect area: No History of Present Illness HPI The patient is a 67-year-old female who presents to the emergency department from her [employer] office, Dr. Hussein, for elevated heart rate. The patient states she had a routine visit earlier today was noted to be in A. fib with RVR. The patient was sent to the emergency department for further management. The patient does have a history of atrial fibrillation and is currently on Coreg 25 mg twice a day as well as Eliquis. The patient does not currently take aspirin, states she stopped after she started Eliquis. The patient does complain of mild shortness of breath with exertion which is chronic. She denies any chest pain, nausea, vomiting, or diaphoresis. She does note the palpitations and elevated heart rate, but states she's had these symptoms in the past. The patient recently quit smoking one hour prior to arrival and then placed a nicotine patch on 50 minutes prior to arrival. Symptoms are mild to moderate, possibly exacerbated by history of atrial fibrillation, and there are no current alleviating factors. PFSH Past Medical History Hx Anticoagulant Therapy: Yes (325mg asa) Atrial Fibrillation: Yes Anxiety: Yes Depression: Yes Cancer: No Cardiovascular Problems: No (chf; afib) Chest Pain: No Congestive Heart Failure: Yes COPD: Yes Cerebrovascular Accident: No Diabetes: No Diminished Hearing: No Endocrine: No Gastrointestinal Disorders: Yes Genitourinary: No (FREQUENCY FROM LASIX) Headaches: Yes Immune Disorder: No Musculoskeletal: Yes (MORBID OBESITY) Neurologic: No Psychiatric: No Reproductive: Yes Respiratory: Yes (copd) Thyroid Disease: No Ulcer: Yes (DUODENAL, RESOLVED) ?: Not Tubal Ligation: Yes Past Surgical History Gynecologic Surgery: Yes (TUBAL LIGATION, POLYP REMOVED OFF CERVIX) Oral Surgery: Yes (TONSILLECTOMY AGE 4) Tonsillectomy: Yes Other Surgery: Yes Social History Alcohol Use: Yes (rarely) Tobacco Use: Yes (1/2 PPD) Substance Use: No Allergies-Medications (Allergen,Severity, Reaction): Coded Allergies: Sulfa (Sulfonamide Antibiotics) (Unverified Allergy, Severe, Anaphylaxis, 06/19/17) amoxicillin (Unverified Allergy, Severe, Anaphylaxis, 06/19/17) cephalexin (Unverified Allergy, Severe, Anaphylaxis, 06/19/17) clavulanic acid (Unverified Allergy, Severe, Anaphylaxis, 06/19/17) Reported Meds & Prescriptions Reported Meds & Active Scripts Active Famotidine 20 Mg Tab 20 Mg PO BID 30 Days Coreg (Carvedilol) 12.5 Mg Tab 25 Mg PO Q12HR 30 Days Eliquis (Apixaban) 5 Mg Tab 5 Mg PO BID 30 Days Reported Breo Ellipta Inh (Fluticasone/Vilanterol) 100-25 Mcg/Act Inh 1 Puff INH HS Use daily at the same time. Effexor (Venlafaxine HCl) 37.5 Mg Tab 37.5 Mg PO DAILY Lisinopril 40 Mg Tab 40 Mg PO DAILY Furosemide 40 Mg Tab 40 Mg PO DAILY Fenofibrate 160 Mg Tab 160 Mg PO DAILY Potassium Chloride ER (Potassium Chloride) 20 Meq Tab 20 Meq PO BID Review of Systems Except as stated in HPI: all other systems reviewed are Neg General / Constitutional: No: Fever HENT: No: Lightheadedness Cardiovascular: Positive: Palpitations, Irregular Rhythm, Tachycardia, Dyspnea on exertion, No: Chest Pain or Discomfort, Diaphoresis Respiratory: No: Shortness of Breath Gastrointestinal: No: Nausea, Vomiting Musculoskeletal: No: Weakness, Edema Neurologic: No: Dizziness Physical Exam Narrative GENERAL: Awake, alert, pleasant 67-year-old female who appears her stated age and is in no acute respiratory distress. SKIN: Focused skin assessment warm/dry. HEAD: Atraumatic. Normocephalic. EYES: No injection or drainage. ENT: No nasal bleeding or discharge. Mucous membranes pink and moist. NECK: Trachea midline. No JVD. CARDIOVASCULAR: Irregularly irregular, tachycardic with a heart rate in the 150s. RESPIRATORY: No accessory muscle use. Few scattered wheezes. GASTROINTESTINAL: Abdomen soft, non-tender, nondistended. Obese, no rebound tenderness. MUSCULOSKELETAL: No obvious deformities. No clubbing. No cyanosis. No edema. NEUROLOGICAL: Awake and alert. No obvious cranial nerve deficits. Motor grossly within normal limits. Normal speech. PSYCHIATRIC: Appropriate mood and affect; insight and judgment normal. Data Data Last Documented VS Vital Signs Date Time Temp Pulse Resp B/P (MAP) Pulse Ox O2 Delivery O2 Flow Rate FiO2 06/19/17 13:51 18 119/61 1/5/18 13:45 18 Room Air 06/19/17 13:16 97 06/19/17 12:56 98.9 Orders Orders Electrocardiogram (06/19/17 12:55) B-Type Natriuretic Peptide (06/19/17 12:55) Ckmb (Isoenzyme) Profile (06/19/17 12:55) Complete Blood Count With Diff (06/19/17 12:55) Comprehensive Metabolic Panel (06/19/17 12:55) Magnesium (Mg) (06/19/17 12:55) Prothrombin Time / Inr (Pt) (06/19/17 12:55) Act Partial Throm Time (Ptt) (06/19/17 12:55) Troponin I (06/19/17 12:55) Chest, Single Ap (06/19/17 12:55) Ecg Monitoring (06/19/17 12:55) Bilateral Bp Monitoring (06/19/17 12:55) Iv Access Insert/Monitor (06/19/17 12:55) Oximetry (06/19/17 12:55) Oxygen Administration (06/19/17 12:55) Sodium Chloride 0.9% Flush (Ns Flush) (06/19/17 13:00) Sodium Chlorid 0.9% 500 Ml Inj (Ns 500 M (06/19/17 13:00) Digoxin Inj (Lanoxin Inj) (06/19/17 13:00) Diltiazem Drip Inj Premix (Cardizem Drip (06/19/17 13:30) Sodium Chloride 0.9% Flush (Ns Flush) (06/19/17 13:30) Admit Order (Ed Use Only) (06/19/17 14:16) Labs Laboratory Tests Test 06/19/17 13:00 White Blood Count 11.6 TH/MM3 Red Blood Count 5.53 MIL/MM3 Hemoglobin 14.6 GM/DL Hematocrit 44.9 % Mean Corpuscular Volume 81.2 FL Mean Corpuscular Hemoglobin 26.3 PG Mean Corpuscular Hemoglobin Concent 32.4 % Red Cell Distribution Width 14.6 % Platelet Count 230 TH/MM3 Mean Platelet Volume 9.0 FL Neutrophils (%) (Auto) 67.9 % Lymphocytes (%) (Auto) 20.7 % Monocytes (%) (Auto) 6.5 % Eosinophils (%) (Auto) 4.1 % Basophils (%) (Auto) 0.8 % Neutrophils # (Auto) 7.8 TH/MM3 Lymphocytes # (Auto) 2.4 TH/MM3 Monocytes # (Auto) 0.8 TH/MM3 Eosinophils # (Auto) 0.5 TH/MM3 Basophils # (Auto) 0.1 TH/MM3 CBC Comment DIFF FINAL Differential Comment Prothrombin Time 10.0 SEC Prothromb Time International Ratio 1.0 RATIO Activated Partial Thromboplast Time 21.5 SEC Blood Urea Nitrogen 25 MG/DL Creatinine 1.30 MG/DL Random Glucose 166 MG/DL Total Protein 6.8 GM/DL Albumin 3.3 GM/DL Calcium Level 8.6 MG/DL Magnesium Level 2.3 MG/DL Alkaline Phosphatase 84 U/L Aspartate Amino Transf (AST/SGOT) 12 U/L Alanine Aminotransferase (ALT/SGPT) 23 U/L Total Bilirubin 0.4 MG/DL Sodium Level 140 MEQ/L Potassium Level 4.5 MEQ/L Chloride Level 103 MEQ/L Carbon Dioxide Level 29.5 MEQ/L Anion Gap 8 MEQ/L Estimat Glomerular Filtration Rate 41 ML/MIN Total Creatine Kinase 24 U/L Troponin I LESS THAN 0.02 NG/ML B-Type Natriuretic Peptide 89 PG/ML MDM Medical Decision Making Medical Screen Exam Complete: Yes Emergency Medical Condition: Yes Medical Record Reviewed: Yes Interpretation(s) EKG reveals atrial fibrillation with RVR, rate in the 150s. Nonspecific T wave changes. RSR prime in V1. Last Impressions Chest X-Ray 06/19/17 1255 Signed Impressions: Service Date/Time: Monday, June 19, 2017 13:16 - CONCLUSION: 1. Cardiomegaly. 2. No focal infiltrate or pulmonary vascular congestion. Amanuel Negron MD Laboratory Tests Test 06/19/17 13:00 White Blood Count 11.6 TH/MM3 Red Blood Count 5.53 MIL/MM3 Hemoglobin 14.6 GM/DL Hematocrit 44.9 % Mean Corpuscular Volume 81.2 FL Mean Corpuscular Hemoglobin 26.3 PG Mean Corpuscular Hemoglobin Concent 32.4 % Red Cell Distribution Width 14.6 % Platelet Count 230 TH/MM3 Mean Platelet Volume 9.0 FL Neutrophils (%) (Auto) 67.9 % Lymphocytes (%) (Auto) 20.7 % Monocytes (%) (Auto) 6.5 % Eosinophils (%) (Auto) 4.1 % Basophils (%) (Auto) 0.8 % Neutrophils # (Auto) 7.8 TH/MM3 Lymphocytes # (Auto) 2.4 TH/MM3 Monocytes # (Auto) 0.8 TH/MM3 Eosinophils # (Auto) 0.5 TH/MM3 Basophils # (Auto) 0.1 TH/MM3 CBC Comment DIFF FINAL Differential Comment Prothrombin Time 10.0 SEC Prothromb Time International Ratio 1.0 RATIO Activated Partial Thromboplast Time 21.5 SEC Blood Urea Nitrogen 25 MG/DL Creatinine 1.30 MG/DL Random Glucose 166 MG/DL Total Protein 6.8 GM/DL Albumin 3.3 GM/DL Calcium Level 8.6 MG/DL Magnesium Level 2.3 MG/DL Alkaline Phosphatase 84 U/L Aspartate Amino Transf (AST/SGOT) 12 U/L Alanine Aminotransferase (ALT/SGPT) 23 U/L Total Bilirubin 0.4 MG/DL Sodium Level 140 MEQ/L Potassium Level 4.5 MEQ/L Chloride Level 103 MEQ/L Carbon Dioxide Level 29.5 MEQ/L Anion Gap 8 MEQ/L Estimat Glomerular Filtration Rate 41 ML/MIN Total Creatine Kinase 24 U/L Troponin I LESS THAN 0.02 NG/ML B-Type Natriuretic Peptide 89 PG/ML Differential Diagnosis Differential diagnosis includes atrial fibrillation with RVR, arrhythmia, electrolyte abnormality, congestive heart failure, cardiomyopathy, hypothyroidism, pleural effusion, pulmonary edema. Narrative Course IV was established, labs are drawn and sent, and the patient was placed on cardiac telemetry monitoring and continuous pulse oximetry monitoring. EKG was ordered and interpreted. The patient's initial blood pressure was 102/82, therefore, Cardizem was held and the patient was seam presser 500 cc of normal saline and digoxin 0.5 mg intravenously. Chest x-ray was obtained. Chest x- ray was unremarkable. After the digoxin the patient's heart rate came down to the 120s to 130s. Her blood pressure did improve to 130s/80s. Therefore, patient was placed on a Cardizem drip. After the Cardizem drip was started at 5 mg an hour the patient's heart rate came down to the 90s to the 120. The patient will be admitted for A. fib with RVR, may benefit from echocardiogram and reevaluation of her current medications for rate control. Patient has [employer], [facility]. Critical Care Narrative Aggregate critical care time was 35 minutes. Time to perform other separately billable procedures was not included in the critical care time. My time did not include minutes spent treating any other patients simultaneously or on activities that did not directly contribute to the patient's treatment. The services I provided to this patient were to treat and/or prevent clinically significant deterioration that could result in: Cardiogenic shock, cardiomyopathy, hypotension, arrhythmia, pulmonary edema, congestive heart failure. I provided critical care services requiring my management, as noted below: Chart data review, documentation time, medication orders and management, vital sign assessments/reviewing monitor data, ordering and reviewing lab tests, ordering and interpreting/reviewing x-rays and diagnostic studies, care of the patient and discussion of the patient with the admitting physicians. Physician Communication Physician Communication The patient has [employer], therefore, [facility]. I discussed the patient with Dr. Jimenez who agrees with admission. Diagnosis Primary Impression: Atrial fibrillation with RVR Admitting Information Admitting Physician Requests: Admit Condition: Stable Roman Noyola MD Jun 19, 2017 12:59
[2017-06-19] MEDS ORDERED: SODIUM CHLORID 0.9% 500 ML INJ 500 ML IV ONE (13:00)
[2017-06-19] MEDS ORDERED: DIGOXIN 0.5 MG/2 ML VIAL IV PUSH ONE (13:00)
[2017-06-19] MEDS ORDERED: SODIUM CHLORIDE 0.9% FLUSH 10 ML FLUSH IVF PRN (13:00)
[2017-06-19 13:09] LABS: AUTOMATED NEUTROPHIL # 7.8 TH/MM3 (1.8-7.7); BASOPHIL # 0.1 TH/MM3 (0-0.2); BASOPHIL % 0.8 % (0.0-2.0); EOSINOPHIL # 0.5 TH/MM3 (0-0.4); EOSINOPHIL % 4.1 % (0.0-4.0); HEMATOCRIT 44.9 % (35.0-46.0); HEMOGLOBIN 14.6 GM/DL (11.6-15.3); LYMPH % 20.7 % (9.0-44.0); LYMPHOCYTE # 2.4 TH/MM3 (1.0-4.8); MEAN CELL VOLUME 81.2 FL (80.0-100.0); MEAN CORPUSCULAR HEMOGLOBIN 26.3 PG (27.0-34.0); MEAN CORPUSCULAR HGB CONC 32.4 % (32.0-36.0); MONO % 6.5 % (0.0-8.0); MONOCYTE # 0.8 TH/MM3 (0-0.9); NEUT % 67.9 % (16.0-70.0); PLATELET COUNT 230 TH/MM3 (150-450); RED BLOOD COUNT 5.53 MIL/MM3 (4.00-5.30); RED CELL DISTRIBUTION WIDTH 14.6 % (11.6-17.2); WHITE BLOOD COUNT 11.6 TH/MM3 (4.0-11.0)
[2017-06-19 13:25] LABS: CHLORIDE 103 MEQ/L (98-107); SODIUM (NA) 140 MEQ/L (136-145)
[2017-06-19 13:28] LABS: CALCIUM 8.6 MG/DL (8.5-10.1)
[2017-06-19 13:29] LABS: ALBUMIN 3.3 GM/DL (3.4-5.0); BICARBONATE 29.5 MEQ/L (21.0-32.0); BLOOD UREA NITROGEN 25 MG/DL (7-18); GLUCOSE,RANDOM 166 MG/DL (74-106); MAGNESIUM 2.3 MG/DL (1.5-2.5)
[2017-06-19] MEDS ORDERED: SODIUM CHLORIDE 0.9% FLUSH 10 ML FLUSH IV FLUSH PRN ×2 (13:30→16:15)
[2017-06-19] MEDS ORDERED: DILTIAZEM DRIP INJ PREMIX 125 ML IV PRN (13:30)
[2017-06-19 13:32] LABS: ALT (GPT) 23 U/L (10-53); AST (GOT) 12 U/L (15-37); GLOMERULAR FILTRATION RATE 41 ML/MIN (>89)
[2017-06-19 13:33] LABS: TOTAL BILIRUBIN ADULT 0.4 MG/DL (0.2-1.0); TOTAL PROTEIN 6.8 GM/DL (6.4-8.2)
[2017-06-19 13:35] LABS: ALKALINE PHOSPHATASE 84 U/L (45-117)
[2017-06-19 13:37] LABS: TROPONIN I LESS THAN 0.02 NG/ML (0.02-0.05)
--- NOTE | 2017-06-19 13:40 | RADRPT ---
EXAM DATE/TIME: 06/19/2017 13:16 [facility] COMPARISON: CT THORAX W/O CONTRAST, June 27, 2016, 9:52. CHEST SINGLE AP, June 28, 2016, 6:21. INDICATIONS : Chest pain MEDICAL HISTORY : Congestive heart failure. Chronic obstructive pulmonary disease. AFib, Smoker SURGICAL HISTORY : None. ENCOUNTER: Initial ACUITY: 1 day PAIN SCORE: 0/10 LOCATION: Bilateral chest FINDINGS: The heart is enlarged. The pulmonary vascular pattern is normal. The lungs are clear. CONCLUSION: 1. Cardiomegaly. 2. No focal infiltrate or pulmonary vascular congestion. Amanuel Negron MD on June 19, 2017 at 13:36 Board Certified Radiologist. This report was verified electronically.
[2017-06-19] MEDS ORDERED: FLUT1INH INH (13:52)
[2017-06-19] MEDS ORDERED: TEMAZEPAM 15 MG CAP PO PRN (16:15)
[2017-06-19] MEDS ORDERED: DEXTROSE 50% IN WATER 50 ML VIAL(D50) IV PUSH PRN (16:15)
[2017-06-19] MEDS ORDERED: CALCIUM CARBONATE 500 MG CHEWABLE TAB CHEW PRN (16:15)
[2017-06-19] MEDS ORDERED: ONDANSETRON HCL 4 MG/2 ML VIAL IV PUSH PRN (16:15)
[2017-06-19] MEDS ORDERED: GLUCAGON 1 MG/ML VIAL OTHER PRN (16:15)
[2017-06-19] MEDS ORDERED: ACETAMINOPHEN 325 MG TAB PO PRN (16:15)
[2017-06-19] MEDS ORDERED: DOCUSATE SODIUM 100 MG CAP PO PRN (16:15)
[2017-06-19] MEDS ORDERED: RESP: ALBUTEROL 2.5 MG/IPRATROPIUM 0.5 MG NEB (PRN) NEB (16:15)
[2017-06-19] MEDS ORDERED: MAGNESIUM HYDROXIDE SUSP 30 ML CUP PO PRN (16:15)
--- NOTE | 2017-06-19 16:21 | HHI.HP ---
HPI Service [facility] Primary Care Physician Kolby Aguilar MD Admission Diagnosis atrial fibrillation with RVR Diagnoses: (1) Atrial fibrillation with RVR Diagnosis: Principal Chief Complaint: Patient sent here by her dianetic counselor for atrial fibrillation Travel History International Travel<30 Days: No Contact w/Intl Traveler <30 Da: No Traveled to Known Affected Are: No History of Present Illness 67-year-old female with known history of atrial fibrillation, congestive heart failure, hypertension, hyperlipidemia, tobacco use, chronic obstructive pulmonary disease, obesity with BMI 48, history of hyperglycemia with hemoglobin A1c 7.6, who presented to hospital at the request of her dianetic counselor Dr. Hussein because of atrial fibrillation with RVR. Patient originally presented to the emergency department and was taken care of by Dr. Noyola. On presentation her blood pressure was mildly low with a heart rate in the 150s. Patient was given oxygen with improvement of her heart rate and improvement of her blood pressure. It subtotally started on Cardizem IV with control. Patient now with stable blood pressure and heart rate from 95-115. Patient states that she did take her medication 4 hours later this morning. She will go see Dr. Hussein which she is behind schedule on follow-ups. It has been 8-9 months since she saw her dianetic counselor. Apparently when she was in the office her heart rate was significantly elevated and Dr. Hussein was notifying her of her condition. Patient states that she actually feels better now than she has been in years even though her heart rate was elevated. She indicates that she just gotten over an upper respiratory infection which she was on antibiotics and steroids. Upon review of records it does indicate the patient presents this time with hyperglycemia and on her last admission her hemoglobin A1c was 7.6. Patient states that she has never had diabetes is never been treated. Patient is resting, place states that she wants to discharge from the hospital tomorrow. Her heart rate is controlled on Cardizem IV. Awaiting cardiology consult for recommendations and management. Review of Systems Eyes: COMPLAINS OF: Vision loss Except as stated in HPI: all other systems reviewed are Neg Past Family Social History Past Medical History Chronic atrial fibrillation Hypertension Hyperlipidemia Chronic obstructive pulmonary disease History of respiratory failure legally blind Chronic systolic congestive heart failure Chronic tobacco use Anxiety depression Morbid obesity with BMI 48 History of duodenal ulcer Past Surgical History Tubal ligation Polyp removed from cervix Tonsillectomy Reported Medications Reported Meds & Active Scripts Active Famotidine 20 Mg Tab 20 Mg PO BID 30 Days Coreg (Carvedilol) 12.5 Mg Tab 25 Mg PO Q12HR 30 Days Eliquis (Apixaban) 5 Mg Tab 5 Mg PO BID 30 Days Reported Breo Ellipta Inh (Fluticasone/Vilanterol) 100-25 Mcg/Act Inh 1 Puff INH HS Use daily at the same time. Effexor (Venlafaxine HCl) 37.5 Mg Tab 37.5 Mg PO DAILY Lisinopril 40 Mg Tab 40 Mg PO DAILY Furosemide 40 Mg Tab 40 Mg PO DAILY Fenofibrate 160 Mg Tab 160 Mg PO DAILY Potassium Chloride ER (Potassium Chloride) 20 Meq Tab 20 Meq PO BID Allergies: Coded Allergies: Sulfa (Sulfonamide Antibiotics) (Unverified Allergy, Severe, Anaphylaxis, 06/19/17) amoxicillin (Unverified Allergy, Severe, Anaphylaxis, 06/19/17) cephalexin (Unverified Allergy, Severe, Anaphylaxis, 06/19/17) clavulanic acid (Unverified Allergy, Severe, Anaphylaxis, 06/19/17) Family History Reviewed and unremarkable Social History Patient just quit smoking today. She was smoking 1 pack a cigarettes a day, rarely uses alcohol, denies any illicit drugs Physical Exam Vital Signs Vital Signs Date Time Temp Pulse Resp B/P (MAP) Pulse Ox O2 Delivery O2 Flow Rate FiO2 06/19/17 15:45 124 06/19/17 15:40 97.9 128 31 95/65 (75) 94 06/19/17 15:13 115 18 115/56 (75) 94 06/19/17 15:06 107 18 141/49 (79) 94 06/19/17 13:51 18 119/61 06/19/17 13:45 110 18 119/61 (80) Room Air 06/19/17 13:16 117 20 133/86 (102) 97 Room Air 06/19/17 13:14 135 06/19/17 13:11 97 Room Air 06/19/17 12:56 98.9 151 18 102/82 (89) 94 Physical Exam GENERAL: Well-developed, morbidly obese with BMI 48, in no acute distress. alert and orientated HEENT: Head is normocephalic without any lesions or masses noted. Facial features are symmetric. Eyes: Pupils equal round reactive to light. Extraocular muscles are intact. Conjunctivae were clear. Oropharyngeal: Pharynx without any erythema edema. Tongue is midline without deviation. Buccal mucosa is moist without any masses or lesions NECK: Supple without any masses. Trachea midline no deviation. No JVD, no bruits are appreciated CARDIAC: Irregular rhythm, irregular rate. S1/S2 are heard. No murmurs gallops or rubs. LUNGS: Clear to auscultation bilaterally. No wheeze, rhonchi or rales. No use of accessory muscles on inspiration or expiration. ABDOMEN: Soft, nontender. Nondistended. Bowel sounds heard in all 4 quadrants. No organomegaly or masses. Negative rebound, negative guarding EXTREMITIES: No edema, pulses are equal bilaterally. No cyanosis or clubbing NEUROLOGY: Mood and affect appear appropriate. Cranial nerves II through XII grossly intact. Muscle strength 5/5 in upper and lower extremities bilaterally. Deep tendon reflexes are 2+ in upper and lower extremities bilaterally. Laboratory Laboratory Tests Test 06/19/17 13:00 White Blood Count 11.6 Red Blood Count 5.53 Hemoglobin 14.6 Hematocrit 44.9 Mean Corpuscular Volume 81.2 Mean Corpuscular Hemoglobin 26.3 Mean Corpuscular Hemoglobin Concent 32.4 Red Cell Distribution Width 14.6 Platelet Count 230 Mean Platelet Volume 9.0 Neutrophils (%) (Auto) 67.9 Lymphocytes (%) (Auto) 20.7 Monocytes (%) (Auto) 6.5 Eosinophils (%) (Auto) 4.1 Basophils (%) (Auto) 0.8 Neutrophils # (Auto) 7.8 Lymphocytes # (Auto) 2.4 Monocytes # (Auto) 0.8 Eosinophils # (Auto) 0.5 Basophils # (Auto) 0.1 CBC Comment DIFF FINAL Differential Comment Prothrombin Time 10.0 Prothromb Time International Ratio 1.0 Activated Partial Thromboplast Time 21.5 Blood Urea Nitrogen 25 Creatinine 1.30 Random Glucose 166 Total Protein 6.8 Albumin 3.3 Calcium Level 8.6 Magnesium Level 2.3 Alkaline Phosphatase 84 Aspartate Amino Transf (AST/SGOT) 12 Alanine Aminotransferase (ALT/SGPT) 23 Total Bilirubin 0.4 Sodium Level 140 Potassium Level 4.5 Chloride Level 103 Carbon Dioxide Level 29.5 Anion Gap 8 Estimat Glomerular Filtration Rate 41 Total Creatine Kinase 24 Troponin I LESS THAN 0.02 B-Type Natriuretic Peptide 89 Result Diagram: 06/19/17 1300 06/19/17 1300 Imaging Last Impressions Chest X-Ray 06/19/17 1255 Signed Impressions: Service Date/Time: Monday, June 19, 2017 13:16 - CONCLUSION: 1. Cardiomegaly. 2. No focal infiltrate or pulmonary vascular congestion. MD Hanny Acharya VTE Risk Assessment Caprini VTE Risk Assessment: Mod/High Risk (score >= 2) Caprini Risk Assessment Model Point Value = 1 Point Value = 2 Point Value = 3 Point Value = 5 Age 41-60 Minor surgery BMI > 25 kg/m2 Swollen legs Varicose veins or History of unexplained or recurrent spontaneous Oral contraceptives or hormone replacement Sepsis (< 1 month) Serious lung disease, including pneumonia (< 1 month) Abnormal pulmonary function Acute myocardial infarction Congestive heart failure (< 1 month) History of inflammatory bowel disease Medical patient at bed rest Age 61-74 Arthroscopic surgery Major open surgery (> 45 min) Laparoscopic surgery (> 45 min) Malignancy Confined to bed (> 72 hours) Immobilizing plaster cast Central venous access Age >= 75 History of VTE Family history of VTE Factor V Leiden Prothrombin [id number] Lupus anticoagulant Anticardiolipin antibodies Elevated serum homocysteine Heparin-induced thrombocytopenia Other congenital or acquired thrombophilia Stroke (< 1 month) Elective arthroplasty Hip, pelvis, or leg fracture Acute spinal cord injury (< 1 month) Prophylaxis Regimen Total Risk Factor Score Risk Level Prophylaxis Regimen 0-1 Low Early ambulation 2 Moderate Order ONE of the following: *Sequential Compression Device (SCD) *Heparin 5000 units SQ BID 3-4 Higher Order ONE of the following medications: *Heparin 5000 units SQ TID *Enoxaparin/Lovenox 40 mg SQ daily (WT < 150 kg, CrCl > 30 mL/min) *Enoxaparin/Lovenox 30 mg SQ daily (WT < 150 kg, CrCl > 10-29 mL/min) *Enoxaparin/Lovenox 30 mg SQ BID (WT < 150 kg, CrCl > 30 mL/min) AND/OR *Sequential Compression Device (SCD) 5 or more Highest Order ONE of the following medications: *Heparin 5000 units SQ TID (Preferred with Epidurals) *Enoxaparin/Lovenox 40 mg SQ daily (WT < 150 kg, CrCl > 30 mL/min) *Enoxaparin/Lovenox 30 mg SQ daily (WT < 150 kg, CrCl > 10-29 mL/min) *Enoxaparin/Lovenox 30 mg SQ BID (WT < 150 kg, CrCl > 30 mL/min) AND *Sequential Compression Device (SCD) Assessment and Plan Assessment and Plan Atrial fibrillation with RVR Could be secondary to patient not taking her medications on time today or recent replace nicotine patch Status post digoxin in the emergency department Heart rate controlled on Cardizem IV Continue home medications Coreg Anticoagulated on Eliquis's obtain echocardiogram Consulted Dr. Hussein for recommendations Hypertension, hyperlipidemia, congestive heart failure Home medications continued Continue beta yolanda, SUSIE inhibitor, diuretic, potassium replacement Chronic obstructive pulmonary disease and chronic smoking patient Patient to continue to refrain from smoking Continue Breo inhaler DuoNeb as needed Continue oxygenation maintain O2 sats greater than 92% Hyperglycemia Patient with previous hemoglobin A1c was 7.6 Repeat hemoglobin A1c Start Accu-Cheks with sliding scale insulin DVT prevention patient is on Eliquis Discussed Condition With Discussed with patient, Dr. Jimenez, at bedside, nursing staff Physician Certification 2 Midnight Certification Type: Admission for Inpatient Services Order for Inpatient Services The services are ordered in accordance with Medicare regulations or non- Medicare payer requirements, as applicable. In the case of services not specified as inpatient-only, they are appropriately provided as inpatient services in accordance with the 2-midnight benchmark. Estimated LOS (days): 3 days is the estimated time the patient will need to remain in the hospital, assuming treatment plan goals are met and no additional complications. Post-Hospital Plan: Not yet determined Jed Blount Jun 19, 2017 16:21
[2017-06-19] MEDS: INSULIN ASPART SUPPLEMENTAL SCALE SQ SCH ×2 (16:35→21:00)
--- NOTE | 2017-06-19 17:08 | PD.CONS ---
HPI Consult Requested By Primary Care Physician Kolby Aguilar MD History of Present Illness 67-year-old female with known history of atrial fibrillation, congestive heart failure, hypertension, hyperlipidemia, tobacco use, chronic obstructive pulmonary disease, morbid obesity with BMI 48, metabolic syndrome, who presented to hospital at the request of her right of way man Dr. Hussein because of atrial fibrillation with RVR. Her heart rate is controlled on Cardizem IV. No CV complaints. Review of Systems Consitutional: DENIES: Fatigue, Fever, Chills, Weight gain, Weight loss Eyes: DENIES: Amaurosis Fugax, Change in vision HEENT: DENIES: Lightheadedness, Change in hearing Respiratory: DENIES: See HPI, Cough, Snoring, Shortness of breath, Wheezing, Sputum production Cardiovascular: DENIES: See HPI, Chest pain, Palpitations, Syncope, Tachycardia Gastrointestinal: DENIES: Nausea, Vomiting, Change in bowel habits, Reflux, Bloody stools, Melena Genitourinary: DENIES: Urinary incontinence, Difficulty voiding Integumentary: DENIES: Rash Neurologic: DENIES: Tingling or numbness, Memory problems, Poor Balance, Stroke symptoms Musculoskeletal: DENIES: Joint pain, Muscle pain, Limited range of motion, Back pain Psychiatric: DENIES: Anxiety, Depression, Sleep disturbances Hematologic: DENIES: Bruising tendencies, Bleeding tendencies Endocrine: DENIES: Weight gain, Weight loss, Thyroid disease Past Family Social History Allergies: Coded Allergies: Sulfa (Sulfonamide Antibiotics) (Unverified Allergy, Severe, Anaphylaxis, 06/19/17) amoxicillin (Unverified Allergy, Severe, Anaphylaxis, 06/19/17) cephalexin (Unverified Allergy, Severe, Anaphylaxis, 06/19/17) clavulanic acid (Unverified Allergy, Severe, Anaphylaxis, 06/19/17) Past Medical History Chronic atrial fibrillation Hypertension Hyperlipidemia Chronic obstructive pulmonary disease History of respiratory failure legally blind Chronic systolic congestive heart failure Chronic tobacco use Anxiety depression Morbid obesity with BMI 48 History of duodenal ulcer Past Surgical History Tubal ligation Polyp removed from cervix Tonsillectomy Reported Medications Reported Meds & Active Scripts Active Famotidine 20 Mg Tab 20 Mg PO BID 30 Days Coreg (Carvedilol) 12.5 Mg Tab 25 Mg PO Q12HR 30 Days Eliquis (Apixaban) 5 Mg Tab 5 Mg PO BID 30 Days Reported Breo Ellipta Inh (Fluticasone/Vilanterol) 100-25 Mcg/Act Inh 1 Puff INH HS Use daily at the same time. Effexor (Venlafaxine HCl) 37.5 Mg Tab 37.5 Mg PO HS Lisinopril 40 Mg Tab 40 Mg PO BID Furosemide 40 Mg Tab 40 Mg PO BID Fenofibrate 160 Mg Tab 160 Mg PO DAILY Potassium Chloride ER (Potassium Chloride) 20 Meq Tab 20 Meq PO BID Active Ordered Medications Current Medications Medications (Trade) Dose Ordered Sig/Melina Route Start Time Stop Time Status Last Admin Diltiazem HCl 125 ml @ 5 mls/hr TITRATE PRN IV 06/19/17 13:30 06/19/17 13:51 (NS Flush) 2 ml UNSCH PRN IV FLUSH 06/19/17 16:15 (NS Flush) 2 ml BID IV FLUSH 06/19/17 21:00 (D50w (Vial) Inj) 50 ml UNSCH PRN IV PUSH 06/19/17 16:15 (Glucagon Inj) 1 mg UNSCH PRN OTHER 06/19/17 16:15 (NovoLOG SUPPLEMENTAL SCALE) 1 ACHS SLIDING SCALE SQ 06/19/17 17:00 (Tylenol) 650 mg Q4H PRN PO 06/19/17 16:15 (Zofran Inj) 4 mg Q6H PRN IV PUSH 06/19/17 16:15 (Colace) 100 mg BID PRN PO 06/19/17 16:15 (Milk Of Magnesia Liq) 30 ml DAILY PRN PO 06/19/17 16:15 (Tums Chew) 1,000 mg TID PRN CHEW 06/19/17 16:15 06/19/17 16:35 (Restoril) 15 mg HS PRN PO 06/19/17 16:15 (Eliquis) 5 mg BID PO 06/19/17 21:00 (Coreg) 25 mg Q12HR PO 06/19/17 21:00 (Pepcid) 20 mg BID PO 06/19/17 21:00 (Breo Ellipta 100-25 Inh) 1 puff HS INH 06/19/17 21:00 (Lasix) 40 mg DAILY PO 06/20/17 09:00 (KCl) 20 meq BID PO 06/19/17 21:00 (Tricor) 145 mg DAILY PO 06/20/17 09:00 (Prinivil) 40 mg DAILY PO 06/20/17 09:00 (Effexor Xr) 37.5 mg DAILY PO 06/20/17 09:00 (Duoneb Neb) 1 ampule Q4HR NEB PRN NEB 06/19/17 16:15 Family History Reviewed and unremarkable Social History Patient just quit smoking today. She was smoking 1 pack a cigarettes a day, rarely uses alcohol, denies any illicit drugs Physical Exam Vital Signs Vital Signs Date Time Temp Pulse Resp B/P (MAP) Pulse Ox O2 Delivery O2 Flow Rate FiO2 06/19/17 16:45 104 32 142/82 (102) 96 06/19/17 16:33 104 29 147/53 (84) 92 06/19/17 16:17 102 27 112/65 (81) 89 06/19/17 16:00 128 06/19/17 16:00 128 46 125/82 (96) 92 06/19/17 15:45 124 06/19/17 15:40 97.9 128 31 95/65 (75) 94 06/19/17 15:13 115 18 115/56 (75) 94 06/19/17 15:06 107 18 141/49 (79) 94 06/19/17 13:51 18 119/61 06/19/17 13:45 110 18 119/61 (80) Room Air 06/19/17 13:16 117 20 133/86 (102) 97 Room Air 06/19/17 13:14 135 06/19/17 13:11 97 Room Air 06/19/17 12:56 98.9 151 18 102/82 (89) 94 Physical Exam GENERAL: Well-nourished, well-developed patient. SKIN: Warm and dry. HEAD: Normocephalic. EYES: No scleral icterus. No injection or drainage. NECK: Supple, trachea midline. No JVD or lymphadenopathy. CARDIOVASCULAR: Irr Irr without murmurs, gallops, or rubs. RESPIRATORY: Breath sounds equal bilaterally. No accessory muscle use. GASTROINTESTINAL: Abdomen soft, non-tender, nondistended. EXTREMITIES: No cyanosis, or edema. NEUROLOGICAL: Awake, alert, and oriented x 3. Non-focal. Laboratory Laboratory Tests Test 06/19/17 13:00 White Blood Count 11.6 Red Blood Count 5.53 Hemoglobin 14.6 Hematocrit 44.9 Mean Corpuscular Volume 81.2 Mean Corpuscular Hemoglobin 26.3 Mean Corpuscular Hemoglobin Concent 32.4 Red Cell Distribution Width 14.6 Platelet Count 230 Mean Platelet Volume 9.0 Neutrophils (%) (Auto) 67.9 Lymphocytes (%) (Auto) 20.7 Monocytes (%) (Auto) 6.5 Eosinophils (%) (Auto) 4.1 Basophils (%) (Auto) 0.8 Neutrophils # (Auto) 7.8 Lymphocytes # (Auto) 2.4 Monocytes # (Auto) 0.8 Eosinophils # (Auto) 0.5 Basophils # (Auto) 0.1 CBC Comment DIFF FINAL Differential Comment Prothrombin Time 10.0 Prothromb Time International Ratio 1.0 Activated Partial Thromboplast Time 21.5 Blood Urea Nitrogen 25 Creatinine 1.30 Random Glucose 166 Total Protein 6.8 Albumin 3.3 Calcium Level 8.6 Magnesium Level 2.3 Alkaline Phosphatase 84 Aspartate Amino Transf (AST/SGOT) 12 Alanine Aminotransferase (ALT/SGPT) 23 Total Bilirubin 0.4 Sodium Level 140 Potassium Level 4.5 Chloride Level 103 Carbon Dioxide Level 29.5 Anion Gap 8 Estimat Glomerular Filtration Rate 41 Total Creatine Kinase 24 Troponin I LESS THAN 0.02 B-Type Natriuretic Peptide 89 Result Diagram: 06/19/17 1300 06/19/17 1300 Imaging Last Impressions Chest X-Ray 06/19/17 1255 Signed Impressions: Service Date/Time: Monday, June 19, 2017 13:16 - CONCLUSION: 1. Cardiomegaly. 2. No focal infiltrate or pulmonary vascular congestion. Amanuel Negron MD Assessment and Plan Problem List: (1) Atrial fibrillation with RVR ICD Codes: I48.91 - Unspecified atrial fibrillation Status: Acute Plan: Cont Cardizem drip and wean as tolerated Cont Coreg 25m PO BID Cont OAC. Start Cardizem 30mg PO TID Not candidate for Digoxin due to CKD Decrease dose of ACEi given low BP F/U with Cardiology upon discharge (2) Diabetes mellitus ICD Codes: E11.9 - Diabetes mellitus Status: Acute (3) Obesities, morbid ICD Codes: E66.01 - Obesities, morbid Status: Acute (4) Tobacco abuse counseling ICD Codes: Z71.6 - Tobacco abuse counseling Status: Acute (5) Congestive heart failure ICD Codes: I50.9 - Congestive heart failure Status: Acute (6) Respiratory failure ICD Codes: J96.90 - Respiratory failure, unspecified, unspecified whether with hypoxia or hypercapnia Status: Acute (7) COPD exacerbation ICD Codes: J44.1 - Obstructive chronic bronchitis with exacerbation Status: Acute (8) Systolic CHF, acute on chronic ICD Codes: I50.23 - Acute on chronic systolic (congestive) heart failure Status: Acute Browning-Alexei Oliver MD Jun 19, 2017 17:08
[2017-06-19] MEDS ORDERED: ALPRAZolam 0.25 MG TAB PO PRN (17:45)
[2017-06-19] MEDS: FUROSEMIDE 40 MG TAB PO SCH (18:37)
[2017-06-19 19:25] LABS: TROPONIN I LESS THAN 0.02 NG/ML (0.02-0.05)
--- NOTE | 2017-06-19 20:56 | EKG ---
Date Performed: 06/19/2017 Time Performed: 12:45:40 PTAGE: 67 years EKG: ATRIAL FIBRILLATION WITH RAPID VENTRICULAR RESPONSE INCOMPLETE RIGHT BUNDLE BRANCH BLOCK [place] NIMAL ST DEPRESSION ABNORMAL RHYTHM ECG PREVIOUS TRACING : 06/26/2016 10.04 Compared to prior tracing no significant change DOCTOR: Balta Roberts Interpretating Date/Time 06/19/2017 20:55:59
[2017-06-19] MEDS ORDERED: FAMOTIDINE 20 MG TAB PO SCH (21:00)
[2017-06-19] MEDS ORDERED: FLUTICASONE 100 MCG/VILANTEROL 25 MCG INHALER INH SCH (21:00)
[2017-06-19] MEDS: SODIUM CHLORIDE 0.9% FLUSH 10 ML FLUSH IV FLUSH SCH (21:00)
[2017-06-19] MEDS ORDERED: VENLAFAXINE HCL XR 37.5 MG CAP PO SCH (21:00)
[2017-06-19] MEDS: CARVEDILOL 12.5 MG TAB PO SCH (21:36)
[2017-06-19] MEDS: APIXABAN 5 MG TABLET PO SCH (21:37)
[2017-06-19] MEDS: POTASSIUM CHLORIDE 20 MEQ CONTROLLED RELEASE TAB PO SCH (21:37)
[2017-06-20] VITALS (23 sets, daily range): BP systolic 75–119; BP diastolic 44–72; PULSE 68–96; RESP 19–40; TEMP 97.4–98.3; O2SAT 92
[2017-06-20 02:14] LABS: TROPONIN I LESS THAN 0.02 NG/ML (0.02-0.05)
[2017-06-20 05:52] LABS: HEMATOCRIT 38.4 % (35.0-46.0); HEMOGLOBIN 12.7 GM/DL (11.6-15.3); MEAN CELL VOLUME 80.3 FL (80.0-100.0); MEAN CORPUSCULAR HEMOGLOBIN 26.5 PG (27.0-34.0); MEAN PLATELET VOLUME 8.7 FL (7.0-11.0); PLATELET COUNT 178 TH/MM3 (150-450); RED BLOOD COUNT 4.78 MIL/MM3 (4.00-5.30); RED CELL DISTRIBUTION WIDTH 14.4 % (11.6-17.2); WHITE BLOOD COUNT 9.9 TH/MM3 (4.0-11.0)
[2017-06-20 06:01] LABS: CALCIUM 8.5 MG/DL (8.5-10.1)
[2017-06-20 06:02] LABS: BICARBONATE 29.2 MEQ/L (21.0-32.0)
[2017-06-20 06:05] LABS: CREATININE 1.5 MG/DL (0.50-1.00)
[2017-06-20] MEDS ORDERED: PILL SPLITTER OTHER PRN (08:00)
[2017-06-20] MEDS: INSULIN ASPART SUPPLEMENTAL SCALE SQ SCH ×2 (08:00→12:00)
[2017-06-20] MEDS ORDERED: REMOVE OLD PATCH T-DERMAL SCH (09:00)
[2017-06-20] MEDS ORDERED: FUROSEMIDE 40 MG TAB PO SCH (09:00)
[2017-06-20] MEDS: FUROSEMIDE 40 MG TAB PO SCH (09:00)
[2017-06-20] MEDS ORDERED: LISINOPRIL 20 MG TAB PO SCH ×2 (09:00)
[2017-06-20] MEDS ORDERED: FAMOTIDINE 20 MG TAB PO SCH (09:00)
[2017-06-20] MEDS ORDERED: NICOTINE 21 MG/24 HR PATCH T-DERMAL SCH (09:00)
[2017-06-20] MEDS ORDERED: FENOFIBRATE 145 MG TAB PO SCH (09:00)
[2017-06-20] MEDS ORDERED: VENLAFAXINE HCL XR 37.5 MG CAP PO SCH (09:00)
[2017-06-20] MEDS: SODIUM CHLORIDE 0.9% FLUSH 10 ML FLUSH IV FLUSH SCH (09:00)
[2017-06-20] MEDS: POTASSIUM CHLORIDE 20 MEQ CONTROLLED RELEASE TAB PO SCH (09:31)
[2017-06-20] MEDS: DILTIAZEM HCL 30 MG TAB PO SCH ×2 (09:31→14:42)
[2017-06-20] MEDS: APIXABAN 5 MG TABLET PO SCH (09:32)
[2017-06-20] MEDS: CARVEDILOL 12.5 MG TAB PO SCH (09:33)
[2017-06-20 10:57] LABS: HEMOGLOBIN A1C 7.3 % (4.3-6.0)
[2017-06-20] MEDS ORDERED: DILT31TA PO ×2 (13:29→16:50)
[2017-06-20] MEDS ORDERED: APIX5TAB PO (13:29)
[2017-06-20] MEDS ORDERED: LISI-519 PO ×2 (13:29→16:50)
--- NOTE | 2017-06-20 13:29 | HHI.DCPOC ---
Discharge Care Plan Diagnosis: (1) Atrial fibrillation with RVR (2) Hyperglycemia Goals to Promote Your Health * To prevent worsening of your condition and complications * To maintain your health at the optimal level Directions to Meet Your Goals Take your medications as prescribed Follow your dietary instruction Follow activity as directed Keep your appointments as scheduled Take your immunizations and boosters as scheduled If your symptoms worsen call your PCP, if no PCP go to Urgent Care Center or Emergency Room Smoking is Dangerous to Your Health. Avoid second hand smoke Call the 24-hour hour crisis hotline for domestic abuse at Ike Felipe MD Jun 20, 2017 13:29
--- NOTE | 2017-06-20 13:31 | HHI.PR ---
Subjective Remarks Nursing denies any deterioration since last night. Has been successfully weaned off the Cardizem drip. Did have some low blood pressures and therefore SUSIE inhibitor dosing was reduced by cardiology. Patient wanting to go home, says she no longer feels lightheaded. Says she had a recent course of steroids that she completed prior to her hospitalization that cause her sugars to go up.. Objective Vital Signs Date Time Temp Pulse Resp B/P (MAP) Pulse Ox O2 Delivery O2 Flow Rate FiO2 06/20/17 12:00 97.4 70 21 85/61 (69) 06/20/17 10:29 80 26 85/52 (63) 06/20/17 10:18 84 33 90/46 (61) 06/20/17 10:00 90 23 06/20/17 09:59 96 39 95/61 (72) 06/20/17 09:29 90 25 92/46 (61) 06/20/17 09:14 94 24 106/65 (79) 06/20/17 09:00 88 22 06/20/17 08:59 96 37 97/51 (66) 06/20/17 08:29 78 40 114/69 (84) 06/20/17 08:00 80 21 06/20/17 07:59 80 20 114/68 (83) 06/20/17 07:29 78 21 119/64 (82) 06/20/17 07:00 80 21 06/20/17 04:29 80 24 108/65 (79) 06/20/17 04:11 80 27 103/62 (76) 06/20/17 04:00 75 06/20/17 04:00 68 20 85/44 (58) 92 06/20/17 01:27 68 20 85/44 (58) 92 06/20/17 00:59 68 23 86/52 (63) 06/20/17 00:37 72 25 77/47 (57) 06/20/17 00:27 74 22 75/49 (58) 06/20/17 00:00 78 06/19/17 22:59 84 31 89/51 (64) 90 06/19/17 21:59 92 25 119/47 (71) 91 06/19/17 21:40 16 06/19/17 21:29 100 44 156/96 (116) 94 06/19/17 20:18 110 25 136/72 (93) 92 06/19/17 20:00 93 06/19/17 19:59 102 26 112/66 (81) 91 06/19/17 19:29 92 27 114/59 (77) 89 06/19/17 18:37 98 34 134/56 (82) 91 06/19/17 18:00 98 37 150/78 (102) 91 06/19/17 17:30 114 34 119/77 (91) 92 06/19/17 17:15 106 22 116/71 (86) 92 06/19/17 17:00 96 30 99/71 (80) 92 06/19/17 16:45 104 32 142/82 (102) 96 06/19/17 16:33 104 29 147/53 (84) 92 06/19/17 16:17 102 27 112/65 (81) 89 06/19/17 16:00 128 06/19/17 16:00 128 46 125/82 (96) 92 06/19/17 15:45 124 06/19/17 15:40 97.9 128 31 95/65 (75) 94 06/19/17 15:13 115 18 115/56 (75) 94 06/19/17 15:06 107 18 141/49 (79) 94 06/19/17 13:51 18 119/61 06/19/17 13:45 110 18 119/61 (80) Room Air I/O 06/19/17 06/19/17 06/19/17 06/20/17 06/20/17 06/20/17 07:00 15:00 23:00 07:00 15:00 23:00 Intake Total 500 ml 480 ml 0 ml Output Total 400 ml Balance 100 ml 480 ml 0 ml Intake Oral 480 ml 0 ml IV Total 500 ml Output Urine Total 400 ml # Voids 1 Result Diagram: 06/20/17 0542 06/20/17 0542 Objective Remarks Unlabored breathing, clear lung sounds bilaterally Heart rate is within normal limits, rhythm is irregular A/P Assessment and Plan Atrial fibrillation with RVR Now stable rate; weaned off of diltiazem drip . On oral Cardizem per cardiology. Hypertension, hyperlipidemia, congestive heart failure Continue current dose of beta yolanda and potassium supplementation; will lower her SUSIE inhibitor dose considerably given borderline hypotension once Cardizem was started. Chronic obstructive pulmonary disease and chronic smoking patient Patient to continue to refrain from smoking Continue Breo inhaler DuoNeb as needed Continue oxygenation maintain O2 sats greater than 92% Hyperglycemia to f/u with PCP as outpatient to possibly start DM tx as pt believes her sugars are still due to a recent course of steroids (done as outpt). DVT prevention patient is on Eliquis Echo has been performed, - cardiology will follow up. Ike Felipe MD Jun 20, 2017 13:31
--- NOTE | 2017-06-20 18:22 | ECHRPT ---
Indication: HYPERTENSIVE HEART DISEASE CONCLUSIONS Normal left ventricular size. Mild concentric left ventricular hypertrophy. The left ventricular systolic function is [id number] reduced with an estimated ejection fra ction in the range of 35-40%. The left atrial size is moderately dilated. The right atrial size is moderately dilated. Mild mitral valve regurgitation. There is mild tricuspid valve regurgitation. The estimated pulmonary arterial pressure is 43 mmHg. The pulmonary valve is not well visualized. BP: 85 / 52 HR: 80 Rhythm: Atrial fibrillation MEASUREMENTS (Male / Female) Normal Values Technical Quality:Very technically difficult study 2D ECHO LV Diastolic Diameter PLAX 5.7 cm 4.2 - 5.9 / 3.9 - 5.3 cm LV Systolic Diameter PLAX 4.8 cm IVS Diastolic Thickness 1.3 cm 0.6 - 1.0 / 0.6 - 0.9 cm LVPW Diastolic Thickness 1.3 cm 0.6 - 1.0 / 0.6 - 0.9 cm LV Relative Wall Thickness 0.4 RV Internal Dim ED PLAX 1.9 cm LVOT Diameter 1.8 cm Aortic Root Diameter 2.4 cm LA Systolic Diameter LX 4.3 cm 3.0 - 4.0 / 2.7 - 3.8 cm LA Volume Index 40.9 cm/m 16 - 28 cm/m DOPPLER AV Peak Velocity 124.1 cm/s AV Peak Gradient 6.2 mmHg AV Mean Gradient 3.5 mmHg AV Velocity Time Integral 18.8 cm LVOT Peak Velocity 95.4 cm/s LVOT Peak Gradient 3.6 mmHg LVOT Velocity Time Integral 16.1 cm LVOT Cardiac Index 1334.2 cm/minm AV Area Cont Eq vti 2.2 cm AV Area Cont Eq pk 2.0 cm Mitral E Point Velocity 89.5 cm/s LV E' Lateral Velocity 8.7 cm/s Mitral E to LV E' Lateral Ratio 10.3 LV E' Septal Velocity 4.8 cm/s Mitral E to LV E' Septal Ratio 18.7 TR Peak Velocity 286.0 cm/s TR Peak Gradient 32.7 mmHg Right Atrial Pressure 10.0 mmHg Pulmonary Artery Systolic Pressu 42.7 mmHg Right Ventricular Systolic Press 42.7 mmHg PV Peak Velocity 54.9 cm/s PV Peak Gradient 1.2 mmHg FINDINGS LEFT VENTRICLE Normal left ventricular size. Mild concentric left ventricular hypertrophy. The left ventricular systolic function is [id number] reduced with an estimated ejection fra ction in the range of 35-40%. RIGHT VENTRICLE Normal right ventricular size and systolic function. LEFT ATRIUM The left atrial size is moderately dilated. RIGHT ATRIUM The right atrial size is moderately dilated. ATRIAL SEPTUM Normal atrial septal thickness without atrial level shunting by limited color doppler interrogation. AORTA The aortic root and proximal ascending aorta are normal in size on limited imaging. MITRAL VALVE Moderate mitral valve regurgitation. AORTIC VALVE Trileaflet aortic valve. No aortic valve stenosis or regurgitation. TRICUSPID VALVE There is mild tricuspid valve regurgitation. The estimated pulmonary arterial pressure is 43 mmHg. PULMONARY VALVE The pulmonary valve is not well visualized. VESSELS The inferior vena cava is normal in size. PERICARDIUM No pericardial effusion. Timoteo Mcallister MD, FACC, FSCAI (Electronically Signed) Final Date:20 June 2017 18:20
== END 2017-06-20 15:47 | disposition home or self-care (01) | DRG 309 ==
LOC: PHED 12:38 → PHEDA 14:16 → PHICU 15:44
PROVIDERS: ADMIT Hospitalist; ATTEND Hospitalist
DX: I48.2 Chronic atrial fibrillation (principal); Z68.42 Body mass index [BMI] 45.0-49.9, adult; I50.22 Chronic systolic (congestive) heart failure; J44.9 Chronic obstructive pulmonary disease, unspecified; I11.0 Hypertensive heart disease with heart failure; E66.01 Morbid (severe) obesity due to excess calories; E78.5 Hyperlipidemia, unspecified; E11.9 Type 2 diabetes mellitus without complications; H54.8 Legal blindness, as defined in USA; F41.9 Anxiety disorder, unspecified; F32.9 Major depressive disorder, single episode, unspecified; Z87.891 Personal history of nicotine dependence; Z79.01 Long term (current) use of anticoagulants
CPT/HCPCS: 71045; 80048; 80053; 82550; 82948; 83036; 83735; 83880; 84443; 84484; 85025; 85027; 85610; 85730; 93005; 93306; 96361; 96365; 96375; J1160; J1815; J7040